=== PATIENT | male | born 1970 ===

== ENCOUNTER 2020-10-02 14:02 | Outpatient (REF) | payer MEDICAID, SELFPAY ==
[2020-10-02 19:31] LABS: Uric Acid 8.1 mg/dL (3.4-7.0)
== END 2020-10-02 14:03 | disposition home or self-care (01) ==
LOC: HO.MANLDS 14:02
PROVIDERS: PCP Internal Medicine; Visit Provider Internal Medicine
DX: M10.9 Gout, unspecified (principal)
CPT/HCPCS: 36415; 84550

== ENCOUNTER 2021-03-18 08:49 | Outpatient (REF) | payer MEDICAID, SELFPAY ==
--- NOTE | ~2021-03-18 | XR_ITS ---
EXAMINATION: XR HIP, LEFT CLINICAL INFORMATION: Pain. COMPARISON: None TECHNIQUE: AP and frog-leg lateral views of the left hip. FINDINGS: There is mild narrowing of the superior left acetabular joint space. There is mild subchondral sclerosis of the left acetabular roof. A small subchondral cyst is seen of the lateral aspect of the left acetabular roof. Small accessory ossification centers are seen adjacent to the lateral left acetabular margin. No fracture or dislocation is seen. The left femoral head appears smooth. There is a left pelvic phlebolith, and a pelvic surgical clip is seen. XR/XR hip LT min 2V IMPRESSION: There is mild osteoarthritic change of the left hip. No fracture or dislocation is seen.
== END 2021-03-18 08:50 | disposition home or self-care (01) ==
LOC: HO.XRAY 08:49
PROVIDERS: PCP Internal Medicine; Visit Provider Internal Medicine
DX: M25.552 Pain in left hip (principal)
CPT/HCPCS: 73502

== ENCOUNTER 2021-04-27 01:17 | Emergency (ER) | payer MEDICAID, SELFPAY ==
[2021-04-27 01:30] VITALS: BP 147/93; PULSE 88; RESP 20; TEMP 36.6; O2SAT 94; BMI 35.9
== END 2021-04-27 04:43 | disposition left against medical advice (07) ==
PROVIDERS: Emergency Provider Emergency Medicine
DX: R10.10 Upper abdominal pain, unspecified (principal)
CPT/HCPCS: 99281; 99282

== ENCOUNTER 2021-05-04 10:54 | Emergency (ER) | payer MEDICAID, SELFPAY ==
--- NOTE | ~2021-05-04 | CT_ITS ---
EXAMINATION: CT ABDOMEN AND PELVIS WITH CONTRAST CLINICAL INFORMATION: Right upper quadrant and flank pain. COMPARISON: Abdominal ultrasound dated 07/03/2016. TECHNIQUE: Multidetector volumetric images were obtained from the superior aspect of the liver through the pubic symphysis following administration 85 mL of Omnipaque 350 intravenous contrast. Sagittal and coronal reformatted images were obtained on the technologist's workstation. Oral contrast: No This CT examination was performed using dose optimization techniques as appropriate, variously including the following: *Automated exposure control *Adjustment of mA and/or kV according to patient size (this includes techniques or standardized protocols for targeted exams where dose is matched to indication/reason for exam; i.e. extremities or head) *Use of iterative reconstruction technique DLP: 955.11 mGy-cm FINDINGS: LUNG BASES: The visualized lung bases are unremarkable. LIVER, GALLBLADDER, AND BILIARY TREE: The liver is normal in size, shape, and attenuation. There are multiple low-attenuation hepatic probable cysts, many too small to fully characterize with CT. No biliary ductal dilatation is present. The gallbladder is surgically absent. PANCREAS: Unremarkable. SPLEEN: Unremarkable. ADRENAL GLANDS: The left kidney is unremarkable. The right kidney contains a 1.7 cm benign, fat-containing adenoma with postcontrast Hounsfield value of 21.7 units (3:27). KIDNEYS AND URETERS: The kidneys are normal in size, shape, and attenuation. At the lower pole of the right kidney (3:43), a 4 mm nonobstructing calculus is seen. At the lower pole of the left kidney (3:39), a 2 mm nonobstructing calculus is seen. No ureteric calculus or hydronephroureter is seen bilaterally. No perinephric stranding. BLADDER: Unremarkable. There is a large prostatic impression upon the bladder base. GASTROINTESTINAL TRACT: A small duodenal diverticulum is noted. There is mild diverticulosis, without acute diverticulitis. No bowel obstruction, free intraperitoneal air or abscess is seen. This no focal bowel wall thickening. The vermiform appendix appears normal. ABDOMINAL WALL: There are small fat-containing umbilical and bilateral inguinal hernias. LYMPH NODES: Normal. VASCULAR: Unremarkable. PELVIC VISCERA: There is prostatomegaly, with a transverse span of 6.7 cm. The seminal vesicles are unremarkable. OSSEOUS STRUCTURES: There is multi-level thoracolumbar mild spondylosis and Schmorl's node formation. No acute or aggressive osseous abnormality is seen. CT/CT abdomen pelvis w con IMPRESSION: 1. There are small nonobstructing bilateral renal calculi. No ureteric calculus or obstructive uropathy is seen bilaterally. 2. There is prostatomegaly. There is a prostatic impression upon the bladder base. 3. The gallbladder is surgically absent. 4. There are multiple low-attenuation hepatic cysts. These are of doubtful clinical significance, and several are too small to fully characterize with CT. If of clinical concern (i.e. history of hepatocellular disease or known malignancy), these can be further evaluated with ultrasound or MRI. 5. No abdominopelvic mass, free fluid or lymphadenopathy is seen. 6. There are small fat-containing umbilical and bilateral inguinal hernias. 7. A 1.7 cm benign, fat-containing right adrenal adenoma is noted. 8. There are multi-level degenerative changes of the thoracolumbar spine.
[2021-05-04 11:42] VITALS: BP 176/91; PULSE 77; RESP 16; TEMP 36.1; O2SAT 97; BMI 35.9
[2021-05-04 12:25] LABS: MANUAL DIFF FLAG NO
[2021-05-04 12:28] LABS: Glucose Urine UA NEG (NEG); Leukocyte Esterase Urine NEG (NEG); Nitrite Urine NEG (NEG); Specific Gravity - Urine 1.025 (1.005-1.025); Urine Blood NEG (NEG); Urine Ketones NEG (NEG); Urine Protein TRACE MG/DL (NEG-TRACE)
[2021-05-04 12:29] LABS: Appearance Urine HAZY; Color Urine YELLOW
[2021-05-04 12:34] LABS: Basophils Absolute Auto 0.1 X10*3/uL (0.0-0.2); Basophils Percent Auto 0.7 % (0-2); Eosinophils Absolute Auto 0.3 X10*3/uL (0.0-0.4); Hematocrit 44.8 % (42-52); Hemoglobin 15.2 g/dl (14.0-18.0); Imm Gran Abs Auto 0.02 X10*3/uL (0.00-0.03); Imm Gran Pct Auto 0.2 % (0.0-0.4); Lymphocytes Absolute Auto 1.4 X10*3/uL (1.2-4.9); Lymphocytes Percent Auto 16.4 % (20-40); Mean Corpuscular HGB Conc 33.9 g/dl (31.0-36.0); Mean Corpuscular Hemoglobin 28.6 pg (27.0-33.0); Mean Corpuscular Volume 84.2 fL (80-98); Mean Platelet Volume 10.3 fL (9.4-12.4); Monocytes Absolute Auto 0.6 X10*3/uL (0.1-1.2); Monocytes Percent Auto 6.8 % (2-11); Neutrophils Absolute Auto 6.1 X10*3/uL (2.0-8.3); Neutrophils Percent Auto 72.9 % (45-73); Platelet Count 271 X10*3/uL (160-400); Red Blood Count 5.32 X10*6/uL (4.60-5.80); Red Cell Distribution Width 14.3 % (11.0-16.0); White Blood Count 8.4 X10*3/uL (4.8-10.8)
[2021-05-04 12:35] LABS: INTERNATIONAL NORM RATIO 1.1 (0.9-1.1)
[2021-05-04 13:02] LABS: Alanine Aminotransferase 38 U/L (0-40); Albumin Level 4.3 g/dL (3.5-5.0); Alkaline Phosphatase 85 U/L (39-117); Anion Gap 11 (12-20); Aspartate Amino Transferase 51 U/L (5-37); Bilirubin Total 0.5 mg/dL (0.0-1.0); Blood Urea Nitrogen 10 mg/dL (9-16); Calcium 9.5 mg/dL (8.4-10.2); Carbon Dioxide 26 mmol/L (22-29); Chloride 108 mmol/L (96-108); Creatinine Clr Calc Pharmacy 116.9; Estimated Glomerular Filt Rate > 60; Glucose Random 103 mg/dL (60-115); Lactate Dehydrogenase 127 U/L (118-273); Lipase 90 U/L (8-78); Potassium 4.2 mmol/L (3.3-5.1); Sodium 141 mmol/L (135-145); Total Protein 7.3 g/dL (6.5-8.0)
[2021-05-04 13:17] LABS: Influenza A PCR NEGATIVE (Negative); Influenza B PCR NEGATIVE (Negative); Resp Syncy Virus RNA Qual PCR NEGATIVE (Negative); SARS COV2 PCR INHOUSE NEGATIVE (Negative)
--- NOTE | 2021-05-04 13:48 | ED_ITS ---
HPI - Abdominal Pain General Chief Complaint: Abdominal Pain <SHARITA Colunga Last Filed: 05/04/21 15:26> Stated Complaint: abd pain <SHARITA Colunga Last Filed: 05/04/21 15:26> Time Seen by Provider: 05/04/21 11:52 <SHARITA Colunga Last Filed: 05/04/21 15:26> Source: patient <SHARITA Colunga Last Filed: 05/04/21 15:26> Mode of arrival: ambulatory <SHARITA Colunga Last Filed: 05/04/21 15:26> Limitations: no limitations <SHARITA Colunga Last Filed: 05/04/21 15:26> History of Present Illness HPI narrative: 50-year-old male with a past medical history of GERD, kidney stones s/p cholecystectomy approximately 10-20 years ago presenting to the ED with complaints of right upper quadrant abdominal pain radiating to his right flank/right lower quadrant/mid back over the past week worse since last night. Reports associated dry heaving/nausea/vomiting, poor appetite and diarrhea. Reports that he recently traveled to [place] then to [place] then back to [place] approximately 2 weeks ago. He denies any sick contacts that he is aware of. He denies any fevers, chills, dizziness, headaches, neck pain/stiffness, cough, sore throat, nasal congestion, rhinorrhea, chest pain, shortness of breath, paresthesias, palpitations, dyspnea on exertion, orthopnea, back pain, dysuria, hematuria, abnormal penile discharge, black or bloody stools or any other symptoms complaints or concerns at this time. <SHARITA Colunga Last Filed: 05/04/21 15:26> MD elicited complaint: abdominal pain and flank pain <SHARITA Colunga Last Filed: 05/04/21 15:2 6> Pertinent past history: kidney stones <SHARITA Colunga Last Filed: 05/04/21 15:26> Onset (ago): week(s) (1 week ) <SHARITA Colunga Last Filed: 05/04/21 15:26> Pain Consistency: intermittent <SHARITA Colunga Last Filed: 05/04/21 15:26> Location: RUQ <SHARITA Colunga Last Filed: 05/04/21 15:26> Severity: moderate <SHARITA Colunga Last Filed: 05/04/21 15:26> Quality: aching <SHARITA Colunga Last Filed: 05/04/21 15:26> Radiation: RLQ and R flank <SHARITA Colunga Last Filed: 05/04/21 15:26> Exacerbating factors: nothing <SHARITA Colunga Last Filed: 05/04/21 15:26> Relieving factors: nothing <SHARITA Colunga Last Filed: 05/04/21 15:26> Context: other (Recent travel) <SHARITA Colunga Last Filed: 05/04/21 15:26> Associated symptoms: nausea, vomiting and diarrhea <SHARITA Colunga Last Filed: 05/04/21 15:26> Related Data Home Medications: Previous Rx's Medication Instructions Recorded naproxen 500 mg tablet (Naprosyn) 500 mg PO BID #20 tab 05/04/21 <SHARITA Colunga Last Filed: 05/04/21 15:26> Allergies/Adverse Reactions: Allergies Allergy/AdvReac Type Severity Reaction Status Date / Time No Known Allergies Allergy Verified 04/27/21 01:29 [No Known Allergies*] <SHARITA Colunga Last Filed: 05/04/21 15:26> Review of Systems Review of Systems Constitutional : No Weight loss, No Fever, No Chills, No Night Sweats, No Fatigue, NoMalaise ENT/Mouth: No ear pain, No sore throat, No Difficulty swallowing Cardiovascular : No Chest Pain, No SOB, No Dyspnea on Exertion, No Orthopnea, NoEdema, No Palpitations Respiratory : No Cough, No Sputum, No Wheezing, No Dyspnea Gastrointestinal : Positive nausea/vomiting/abdominal pain/diarrhea, No blood streaked emesis, No coffee-ground emesis, No gross hematemesis, No blood streak stool, No gross hematochezia, No Melena Genitourinary : No irregular bleeding, No Dysuria, No Urinary Frequency, No Hematuria,No Urinary Incontinence, No Urgency, No Flank Pain Musculoskeletal : No joint pain, No Myalgias, No Joint Swelling Skin : No Skin Lesions, No rash Neuro : No Weakness, No Numbness, No Paresthesias, No Loss of Consciousness, NoDizziness, No Headache Psych : No Social Issues, Heme/Lymph: No Bruising, No Bleeding,No Lymphadenopathy Endocrine : No Polyuria, No Polydipsia, No Temperature Intolerance <SHARITA Colunga - Last Filed: 05/04/21 15:26> Yes all other systems are reviewed and are negative <SHARITA Colunga - Last Filed: 05/04/21 15:26> Physical Exam Vital Signs: Vital Signs: Last Vital Signs Temp 98 F 05/04/21 14:16 Pulse 72 05/04/21 14:16 Resp 18 05/04/21 14:16 BP 144/84 H 05/04/21 14:16 Pulse Ox 98 05/04/21 14:16 Body Mass Index 35.9 vital signs have been reviewed as normal and appeared to be correct. Blood pressure hypertensive 176/91 Heart rate normal. Respiration rate normal. Tem perature normal. Oxygen saturation normal. <SHARITA Colunga - Last Filed: 05/04/21 15:26> Vital Signs: Last Vital Signs Temp 98 F 05/04/21 14:16 Pulse 72 05/04/21 14:16 Resp 18 05/04/21 14:16 BP 144/84 H 05/04/21 14:16 Pulse Ox 98 05/04/21 14:16 Body Mass Index 35.9 <Cale Persaud MD - Last Filed: 05/04/21 16:23> Appearance: Alert. Oriented X3. No acute distress. Head: Normal external exam. Normocephalic. Eyes: PERRLA. EOMI. Conjunctiva and sclera normal. Eyelids normal. ENT: Pharynx normal. Uvula midline. Moist mucous membranes. Neck: Normal inspection. Neck supple. FROM. No adenopathy. No meningeal signs. CVS: Normal heart rate and rhythm. Heart sound normal. No murmurs noted. Pulses normal throughout. Respiratory: No respiratory distress. Painless inspiration. Breath sounds normal. No wheezes/rales/rhonchi noted. Chest nontender. No accessory muscle usage noted or decreased air movement noted. Abdomen: Soft and mild tenderness palpation to right upper quadrant/right flank/right lower quadrant with guarding. Nondistended. No rigidity. Bowel sounds normal in all 4 quadrants. No distention noted. No organomegaly noted. No visible injury noted. No rebound tenderness. Negative Rovsing sign. Negative obturator's sign. Negative psoas sign. Negative German sign. Back: No CVA tenderness. Full range of motion noted. Skin: Skin warm and dry. Normal skin color. Normal skin turgor. No rashes/lesi ons/lacerations noted. Extremities: Extremities exhibit normal range of motion. Extremities nontender. Neuro: Oriented X 3. No motor deficit. No sensory deficit. Reflexes normal. Normal steady gait. <SHARITA Colunga - Last Filed: 05/04/21 15:26> Course Course Course Narrative: 12pm - 50-year-old male with a past medical history of GERD, kidney stones s/p cholecystectomy approximately 10-20 years ago presenting to the ED with complaints of right upper quadrant abdominal pain radiating to his right flank/right lower quadrant/mid back over the past week worse since last night. Reports associated dry heaving/nausea/vomiting, poor appetite and diarrhea. Reports that he recently traveled to [place] then to [place] then back to [place] approximately 2 weeks ago. Plan: Labs, UA, CT scan abdomen pelvis with IV contrast, COVID/RSV/flu swab. I also recommended a stool sample/culture and patient declined. I also offered the patient pain medication and anti medics and he declined at this time. <SHARITA Colunga - Last Filed: 05/04/21 15:26> Reevaluation(s) Reevaluation #1: - labs returned anion gap at 11. AST 51. Lipase 90. Otherwise all other labs are within normal limits. UA within normal limits no evidence of UTI. COVID/RSV/flu negative. - pending CT scan of abdomen and pelvis with IV contrast will re-evaluate. <SHARITA Colunga - Last Filed: 05/04/21 15:26> Time: 14:06 <SHARITA Colunga - Last Filed: 05/04/21 15:26> Reevaluation #2: one week ago patient with intermittent spasms in his right upper quadrant. Bath like his gallbladder attack, gallbladder was removed 10 years ago. one week ago patient came to triage but he was not seen. patient has not been seen by GI for his 49 year colonoscopy. WEll developed, Lungs clear, CV RRR, abd nontender, no CVAT. <Cale Persuad MD - Last Filed: 05/04/21 16:23> MDM - Abdominal Pain Lab Data Result diagrams: : 05/04/21 12:19 05/04/21 12:19 <SHARITA Colunga - Last Filed: 05/04/21 15:26> Labs: Lab Results 05/04/21 05/04/21 05/04/21 Range/Units 12:19 12:19 12:19 WBC 8.4 (4.8-10.8) X10*3/uL RBC 5.32 (4.60-5.80) X10*6/uL Hgb 15.2 (14.0-18.0) g/dl Hct 44.8 (42-52) % MCV 84.2 (80-98) fL MCH 28.6 (27.0-33.0) pg MCHC 33.9 (31.0-36.0) g/dl RDW 14.3 (11.0-16.0) % Plt Count 271 (160-400) X10*3/uL MPV 10.3 (9.4-12.4) fL Immature Gran % (Auto) 0.2 (0.0-0.4) % Neut % (Auto) 72.9 (45-73) % Lymph % (Auto) 16.4 L (20-40) % [place] % (Auto) 6.8 (2-11) % Eos % (Auto) 3.0 (0-4) % Baso % (Auto) 0.7 (0-2) % Lymph # (Auto) 1.4 (1.2-4.9) X10*3/uL [place] # (Auto) 0.6 (0.1-1.2) X10*3/uL Eos # (Auto) 0.3 (0.0-0.4) X10*3/uL Baso # (Auto) 0.1 (0.0-0.2) X10*3/uL Abs Immat Gran (auto) 0.02 (0.00-0.03) X10*3/uL Absolute Neuts (auto) 6.1 (2.0-8.3) X10*3/uL Absolute Nucleated RBC 0.000 (0.0-0.012) X10*3/uL Nucleated RBC % (auto) 0.0 (0.0-0.2) /100WBC Hold Purple Top PT 12.0 (9.9-13.0) SEC INR 1.1 (0.9-1.1) Sodium (135-145) mmol/L Potassium (3.3-5.1) mmol/L Chloride (96-108) mmol/L Carbon Dioxide (22-29) mmol/L Anion Gap (12-20) BUN (9-16) mg/dL Creatinine (0.5-1.4) mg/dL Estim Creat Clear Calc Estimated GFR Random Glucose (60-115) mg/dL Calcium (8.4-10.2) mg/dL Magnesium 2.0 (1.6-2.6) mg/dL Total Bilirubin (0.0-1.0) mg/dL AST (5-37) U/L ALT (0-40) U/L Alkaline Phosphatase (39-117) U/L Lactate Dehydrogenase (118-273) U/L Total Protein (6.5-8.0) g/dL Albumin (3.5-5.0) g/dL Lipase (8-78) U/L Urine Color Urine Appearance Urine pH (5.0-8.0) Ur Specific [place] (1.005-1.025) Urine Protein (NEG-TRACE) MG/DL Urine Glucose (UA) (NEG) MG/DL Urine Ketones (NEG) MG/DL Urine Blood (NEG) Urine Nitrite (NEG) Ur Leukocyte Esterase (NEG) Coronavirus (PCR) (Negative) Influenza Type A (PCR) (Negative) Influenza Type B (PCR) (Negative) RSV RNA Qual (PCR) (Negative) 05/04/21 05/04/21 05/04/21 Range/Units 12:19 12:19 12:19 WBC (4.8-10.8) X10*3/uL RBC (4.60-5.80) X10*6/uL Hgb (14.0-18.0) g/dl Hct (42-52) % MCV (80-98) fL MCH (27.0-33.0) pg MCHC (31.0-36.0) g/dl RDW (11.0-16.0) % Plt Count (160-400) X10*3/uL MPV (9.4-12.4) fL Immature Gran % (Auto) (0.0-0.4) % Neut % (Auto) (45-73) % Lymph % (Auto) (20-40) % [place] % (Auto) (2-11) % Eos % (Auto) (0-4) % Baso % (Auto) (0-2) % Lymph # (Auto) (1.2-4.9) X10*3/uL [place] # (Auto) (0.1-1.2) X10*3/uL Eos # (Auto) (0.0-0.4) X10*3/uL Baso # (Auto) (0.0-0.2) X10*3/uL Abs Immat Gran (auto) (0.00-0.03) X10*3/uL Absolute Neuts (auto) (2.0-8.3) X10*3/uL Absolute Nucleated RBC (0.0-0.012) X10*3/uL Nucleated RBC % (auto) (0.0-0.2) /100WBC Hold Purple Top SEE NOTE PT (9.9-13.0) SEC INR (0.9-1.1) Sodium 141 (135-145) mmol/L Potassium 4.2 (3.3-5.1) mmol/L Chloride 108 (96-108) mmol/L Carbon Dioxide 26 (22-29) mmol/L Anion Gap 11 L (12-20) BUN 10 (9-16) mg/dL Creatinine 1.00 (0.5-1.4) mg/dL Estim Creat Clear Calc 116.9 Estimated GFR > 60 Random Glucose 103 (60-115) mg/dL Calcium 9.5 (8.4-10.2) mg/dL Magnesium (1.6-2.6) mg/dL Total Bilirubin 0.5 (0.0-1.0) mg/dL AST 51 H (5-37) U/L ALT 38 (0-40) U/L Alkaline Phosphatase 85 (39-117) U/L Lactate Dehydrogenase 127 (118-273) U/L Total Protein 7.3 (6.5-8.0) g/dL Albumin 4.3 (3.5-5.0) g/dL Lipase 90 H (8-78) U/L Urine Color Urine Appearance Urine pH (5.0-8.0) Ur Specific [place] (1.005-1.025) Urine Protein (NEG-TRACE) MG/DL Urine Glucose (UA) (NEG) MG/DL Urine Ketones (NEG) MG/DL Urine Blood (NEG) Urine Nitrite (NEG) Ur Leukocyte Esterase (NEG) Coronavirus (PCR) NEGATIVE (Negative) Influenza Type A (PCR) NEGATIVE (Negative) Influenza Type B (PCR) NEGATIVE (Negative) RSV RNA Qual (PCR) NEGATIVE (Negative) 05/04/21 Range/Units 12:19 WBC (4.8-10.8) X10*3/uL RBC (4.60-5.80) X10*6/uL Hgb (14.0-18.0) g/dl Hct (42-52) % MCV (80-98) fL MCH (27.0-33.0) pg MCHC (31.0-36.0) g/dl RDW (11.0-16.0) % Plt Count (160-400) X10*3/uL MPV (9.4-12.4) fL Immature Gran % (Auto) (0.0-0.4) % Neut % (Auto) (45-73) % Lymph % (Auto) (20-40) % [place] % (Auto) (2-11) % Eos % (Auto) (0-4) % Baso % (Auto) (0-2) % Lymph # (Auto) (1.2-4.9) X10*3/uL [place] # (Auto) (0.1-1.2) X10*3/uL Eos # (Auto) (0.0-0.4) X10*3/uL Baso # (Auto) (0.0-0.2) X10*3/uL Abs Immat Gran (auto) (0.00-0.03) X10*3/uL Absolute Neuts (auto) (2.0-8.3) X10*3/uL Absolute Nucleated RBC (0.0-0.012) X10*3/uL Nucleated RBC % (auto) (0.0-0.2) /100WBC Hold Purple Top PT (9.9-13.0) SEC INR (0.9-1.1) Sodium (135-145) mmol/L Potassium (3.3-5.1) mmol/L Chloride (96-108) mmol/L Carbon Dioxide (22-29) mmol/L Anion Gap (12-20) BUN (9-16) mg/dL Creatinine (0.5-1.4) mg/dL Estim Creat Clear Calc Estimated GFR Random Glucose (60-115) mg/dL Calcium (8.4-10.2) mg/dL Magnesium (1.6-2.6) mg/dL Total Bilirubin (0.0-1.0) mg/dL AST (5-37) U/L ALT (0-40) U/L Alkaline Phosphatase (39-117) U/L Lactate Dehydrogenase (118-273) U/L Total Protein (6.5-8.0) g/dL Albumin (3.5-5.0) g/dL Lipase (8-78) U/L Urine Color YELLOW Urine Appearance HAZY Urine pH 6.0 (5.0-8.0) Ur Specific [place] 1.025 (1.005-1.025) Urine Protein TRACE (NEG-TRACE) MG/DL Urine Glucose (UA) NEG (NEG) MG/DL Urine Ketones NEG (NEG) MG/DL Urine Blood NEG (NEG) Urine Nitrite NEG (NEG) Ur Leukocyte Esterase NEG (NEG) Coronavirus (PCR) (Negative) Influenza Type A (PCR) (Negative) Influenza Type B (PCR) (Negative) RSV RNA Qual (PCR) (Negative) <SHARITA Colunga - Last Filed: 05/04/21 15:26> Lab Results 05/04/21 05/04/21 05/04/21 Range/Units 12:19 12:19 12:19 WBC 8.4 (4.8-10.8) X10*3/uL RBC 5.32 (4.60-5.80) X10*6/uL Hgb 15.2 (14.0-18.0) g/dl Hct 44.8 (42-52) % MCV 84.2 (80-98) fL MCH 28.6 (27.0-33.0) pg MCHC 33.9 (31.0-36.0) g/dl RDW 14.3 (11.0-16.0) % Plt Count 271 (160-400) X10*3/uL MPV 10.3 (9.4-12.4) fL Immature Gran % (Auto) 0.2 (0.0-0.4) % Neut % (Auto) 72.9 (45-73) % Lymph % (Auto) 16.4 L (20-40) % [place] % (Auto) 6.8 (2-11) % Eos % (Auto) 3.0 (0-4) % Baso % (Auto) 0.7 (0-2) % Lymph # (Auto) 1.4 (1.2-4.9) X10*3/uL [place] # (Auto) 0.6 (0.1-1.2) X10*3/uL Eos # (Auto) 0.3 (0.0-0.4) X10*3/uL Baso # (Auto) 0.1 (0.0-0.2) X10*3/uL Abs Immat Gran (auto) 0.02 (0.00-0.03) X10*3/uL Absolute Neuts (auto) 6.1 (2.0-8.3) X10*3/uL Absolute Nucleated RBC 0.000 (0.0-0.012) X10*3/uL Nucleated RBC % (auto) 0.0 (0.0-0.2) /100WBC Hold Purple Top PT 12.0 (9.9-13.0) SEC INR 1.1 (0.9-1.1) Sodium (135-145) mmol/L Potassium (3.3-5.1) mmol/L Chloride (96-108) mmol/L Carbon Dioxide (22-29) mmol/L Anion Gap (12-20) BUN (9-16) mg/dL Creatinine (0.5-1.4) mg/dL Estim Creat Clear Calc Estimated GFR Random Glucose (60-115) mg/dL Calcium (8.4-10.2) mg/dL Magnesium 2.0 (1.6-2.6) mg/dL Total Bilirubin (0.0-1.0) mg/dL AST (5-37) U/L ALT (0-40) U/L Alkaline Phosphatase (39-117) U/L Lactate Dehydrogenase (118-273) U/L Total Protein (6.5-8.0) g/dL Albumin (3.5-5.0) g/dL Lipase (8-78) U/L Urine Color Urine Appearance Urine pH (5.0-8.0) Ur Specific [place] (1.005-1.025) Urine Protein (NEG-TRACE) MG/DL Urine Glucose (UA) (NEG) MG/DL Urine Ketones (NEG) MG/DL Urine Blood (NEG) Urine Nitrite (NEG) Ur Leukocyte Esterase (NEG) Coronavirus (PCR) (Negative) Influenza Type A (PCR) (Negative) Influenza Type B (PCR) (Negative) RSV RNA Qual (PCR) (Negative) 05/04/21 05/04/21 05/04/21 Range/Units 12:19 12:19 12:19 WBC (4.8-10.8) X10*3/uL RBC (4.60-5.80) X10*6/uL Hgb (14.0-18.0) g/dl Hct (42-52) % MCV (80-98) fL MCH (27.0-33.0) pg MCHC (31.0-36.0) g/dl RDW (11.0-16.0) % Plt Count (160-400) X10*3/uL MPV (9.4-12.4) fL Immature Gran % (Auto) (0.0-0.4) % Neut % (Auto) (45-73) % Lymph % (Auto) (20-40) % [place] % (Auto) (2-11) % Eos % (Auto) (0-4) % Baso % (Auto) (0-2) % Lymph # (Auto) (1.2-4.9) X10*3/uL [place] # (Auto) (0.1-1.2) X10*3/uL Eos # (Auto) (0.0-0.4) X10*3/uL Baso # (Auto) (0.0-0.2) X10*3/uL Abs Immat Gran (auto) (0.00-0.03) X10*3/uL Absolute Neuts (auto) (2.0-8.3) X10*3/uL Absolute Nucleated RBC (0.0-0.012) X10*3/uL Nucleated RBC % (auto) (0.0-0.2) /100WBC Hold Purple Top SEE NOTE PT (9.9-13.0) SEC INR (0.9-1.1) Sodium 141 (135-145) mmol/L Potassium 4.2 (3.3-5.1) mmol/L Chloride 108 (96-108) mmol/L Carbon Dioxide 26 (22-29) mmol/L Anion Gap 11 L (12-20) BUN 10 (9-16) mg/dL Creatinine 1.00 (0.5-1.4) mg/dL Estim Creat Clear Calc 116.9 Estimated GFR > 60 Random Glucose 103 (60-115) mg/dL Calcium 9.5 (8.4-10.2) mg/dL Magnesium (1.6-2.6) mg/dL Total Bilirubin 0.5 (0.0-1.0) mg/dL AST 51 H (5-37) U/L ALT 38 (0-40) U/L Alkaline Phosphatase 85 (39-117) U/L Lactate Dehydrogenase 127 (118-273) U/L Total Protein 7.3 (6.5-8.0) g/dL Albumin 4.3 (3.5-5.0) g/dL Lipase 90 H (8-78) U/L Urine Color Urine Appearance Urine pH (5.0-8.0) Ur Specific [place] (1.005-1.025) Urine Protein (NEG-TRACE) MG/DL Urine Glucose (UA) (NEG) MG/DL Urine Ketones (NEG) MG/DL Urine Blood (NEG) Urine Nitrite (NEG) Ur Leukocyte Esterase (NEG) Coronavirus (PCR) NEGATIVE (Negative) Influenza Type A (PCR) NEGATIVE (Negative) Influenza Type B (PCR) NEGATIVE (Negative) RSV RNA Qual (PCR) NEGATIVE (Negative) 05/04/21 Range/Units 12:19 WBC (4.8-10.8) X10*3/uL RBC (4.60-5.80) X10*6/uL Hgb (14.0-18.0) g/dl Hct (42-52) % MCV (80-98) fL MCH (27.0-33.0) pg MCHC (31.0-36.0) g/dl RDW (11.0-16.0) % Plt Count (160-400) X10*3/uL MPV (9.4-12.4) fL Immature Gran % (Auto) (0.0-0.4) % Neut % (Auto) (45-73) % Lymph % (Auto) (20-40) % [place] % (Auto) (2-11) % Eos % (Auto) (0-4) % Baso % (Auto) (0-2) % Lymph # (Auto) (1.2-4.9) X10*3/uL [place] # (Auto) (0.1-1.2) X10*3/uL Eos # (Auto) (0.0-0.4) X10*3/uL Baso # (Auto) (0.0-0.2) X10*3/uL Abs Immat Gran (auto) (0.00-0.03) X10*3/uL Absolute Neuts (auto) (2.0-8.3) X10*3/uL Absolute Nucleated RBC (0.0-0.012) X10*3/uL Nucleated RBC % (auto) (0.0-0.2) /100WBC Hold Purple Top PT (9.9-13.0) SEC INR (0.9-1.1) Sodium (135-145) mmol/L Potassium (3.3-5.1) mmol/L Chloride (96-108) mmol/L Carbon Dioxide (22-29) mmol/L Anion Gap (12-20) BUN (9-16) mg/dL Creatinine (0.5-1.4) mg/dL Estim Creat Clear Calc Estimated GFR Random Glucose (60-115) mg/dL Calcium (8.4-10.2) mg/dL Magnesium (1.6-2.6) mg/dL Total Bilirubin (0.0-1.0) mg/dL AST (5-37) U/L ALT (0-40) U/L Alkaline Phosphatase (39-117) U/L Lactate Dehydrogenase (118-273) U/L Total Protein (6.5-8.0) g/dL Albumin (3.5-5.0) g/dL Lipase (8-78) U/L Urine Color YELLOW Urine Appearance HAZY Urine pH 6.0 (5.0-8.0) Ur Specific [place] 1.025 (1.005-1.025) Urine Protein TRACE (NEG-TRACE) MG/DL Urine Glucose (UA) NEG (NEG) MG/DL Urine Ketones NEG (NEG) MG/DL Urine Blood NEG (NEG) Urine Nitrite NEG (NEG) Ur Leukocyte Esterase NEG (NEG) Coronavirus (PCR) (Negative) Influenza Type A (PCR) (Negative) Influenza Type B (PCR) (Negative) RSV RNA Qual (PCR) (Negative) <Cale Persaud MD - Last Filed: 05/04/21 16:23> Discharge Plan Discharge Clinical Impression: Abdominal pain Qualifiers: Abdominal location: right upper quadrant Qualified Code(s): R10.11 - Right upper quadrant pain <SHARITA Colunga - Last Filed: 05/04/21 15:26> Patient Disposition: Home, Self-Care <SHARITA Colunga - Last Filed: 05/04/21 15:26> Instructions: Acute Abdominal Pain (ED) <SHARITA Colunga - Last Filed: 05/04/21 15:26> Prescriptions: New naproxen [Naprosyn] 500 mg tablet 500 mg PO BID Qty: 20 RF: 0 <SHARITA Colunga - Last Filed: 05/04/21 15:26> Referrals: Bandar Moore MD [Primary Care Provider] - 5 days Xi Carvalho MD [Physician] - 5 days (must follow up for colonoscopy and abdominal pain) <SHARITA Colunga - Last Filed: 05/04/21 15:26> [facility] Past Medical History Attestation statement: The following information was validated with the patient. <SHARITA Colunga - Last Filed: 05/04/21 15:26> Medical History: Medical History Kidney stones Liver nodule Lung nodule Ptosis Thyroid nodule <SHARITA Colunga - Last Filed: 05/04/21 15:26> Surgical History: Surgical History History of cholecystectomy <SHARITA Colunga - Last Filed: 05/04/21 15:26> Social History Social History: Social History Advance Directives: Yes Advance Directives Information Provided: No Advance Directives on File: No <SHARITA Colunga - Last Filed: 05/04/21 15:26>
[2021-05-04 14:16] VITALS: BP 144/84; PULSE 72; RESP 18; TEMP 36.6; O2SAT 98
[2021-05-04] MEDS: iohexoL 350 MG/ML 100 ML INFUS..BTL 85 ML IV (14:33)
== END 2021-05-04 16:34 | disposition home or self-care (01) ==
PROVIDERS: Physician Assistant Medical; Emergency Provider Internal Medicine; PCP Internal Medicine
DX: R10.11 Right upper quadrant pain (principal); Z20.822 Contact with and (suspected) exposure to COVID-19; Z90.49 Acquired absence of other specified parts of digestive tract; Z87.442 Personal history of urinary calculi
CPT/HCPCS: 0241U; 36415; 74177; 80053; 81003; 83615; 83690; 83735; 85025; 85610; 99284; Q9967

== ENCOUNTER 2024-05-08 10:05 | Outpatient (REF) | payer MEDICAID, SELFPAY ==
[2024-05-08 13:19] LABS: MANUAL DIFF FLAG NO
[2024-05-08 13:32] LABS: Basophils Absolute Auto 0.1 X10*3/uL (0.0-0.2); Basophils Percent Auto 1.2 % (0-2); Eosinophils Absolute Auto 0.4 X10*3/uL (0.0-0.4); Eosinophils Percent Auto 6.3 % (0-4); Hematocrit 46.4 % (42.0-52.0); Hemoglobin 15.5 g/dl (14.0-18.0); Imm Gran Abs Auto 0.02 X10*3/uL (0.00-0.03); Imm Gran Pct Auto 0.3 % (0.0-0.4); Lymphocytes Percent Auto 28.4 % (20-40); Mean Corpuscular HGB Conc 33.4 g/dl (31.0-36.0); Mean Corpuscular Hemoglobin 28.4 pg (27.0-33.0); Mean Corpuscular Volume 85.1 fL (80.0-98.0); Mean Platelet Volume 11.9 fL (9.4-12.4); Monocytes Absolute Auto 0.5 X10*3/uL (0.1-1.2); Monocytes Percent Auto 7.1 % (2-11); Neutrophils Absolute Auto 3.9 x10*3/uL (2.0-8.3); Neutrophils Percent Auto 56.7 % (45-73); Platelet Count 318 X10*3/uL (160-400); Red Blood Count 5.45 X10*6/uL (4.60-5.80); Red Cell Distribution Width 14.3 % (11.0-16.0); White Blood Count 6.9 X10*3/uL (4.8-10.8)
[2024-05-08 13:46] LABS: Alanine Aminotransferase 20 U/L (0-40); Albumin Level 4.2 g/dL (3.5-5.0); Alkaline Phosphatase 69 U/L (39-117); Anion Gap 13 (12-20); Aspartate Amino Transferase 17 U/L (5-37); Bilirubin Total 0.5 mg/dL (0.0-1.0); Blood Urea Nitrogen 12 mg/dL (9-16); Calcium 10.1 mg/dL (8.4-10.2); Carbon Dioxide 28 mmol/L (22-29); Chloride 106 mmol/L (96-108); Cholesterol 241 mg/dL (<200); Estimated Glomerular Filt Rate > 60; Glucose Random 100 mg/dL (60-115); HDL Cholesterol 46 mg/dL (>40); LDL Cholesterol Calculated 152 mg/dL (<100); Potassium 4.7 mmol/L (3.3-5.1); Sodium 142 mmol/L (135-145); Total Protein 7.6 g/dL (6.5-8.0); Triglycerides 219 mg/dL (<150)
[2024-05-08 14:10] LABS: Prostate Specific Antigen 3.99 ng/mL (<0.05-4.0)
== END 2024-05-08 10:06 | disposition home or self-care (01) ==
LOC: HO.MANLDS 10:05
PROVIDERS: Visit Provider Internal Medicine
DX: Z00.01 Encounter for general adult medical examination with abnormal findings (principal); Z12.5 Encounter for screening for malignant neoplasm of prostate
CPT/HCPCS: 36415; 80053; 80061; 84153; 85025

== ENCOUNTER 2024-07-10 08:09 | Outpatient (REF) | payer MEDICAID, SELFPAY ==
[2024-07-10 13:49] LABS: Cholesterol 204 mg/dL (<200); HDL Cholesterol 43 mg/dL (>40); LDL Cholesterol Calculated 130 mg/dL (<100); Triglycerides 158 mg/dL (<150)
[2024-07-11 12:48] LABS: Free Prostate Spec Ag 1.1 ng/mL; Percent Free Prostate Spec Ag 27 % (calc) (>25); Prostate Specific Ag Total 4.1 ng/mL (< OR = 4.0)
== END 2024-07-10 08:10 | disposition home or self-care (01) ==
LOC: HO.MANLDS 08:09
PROVIDERS: Visit Provider Internal Medicine
DX: Z13.89 Encounter for screening for other disorder (principal)
CPT/HCPCS: 36415; 80061; 84154

== ENCOUNTER 2024-07-20 14:44 | Inpatient (IN) | payer OTHER, SELFPAY ==
--- NOTE | ~2024-07-20 | CT_ITS ---
EXAMINATION: CT ABDOMEN AND PELVIS WITHOUT CONTRAST CLINICAL INFORMATION: Right flank pain COMPARISON: CT abdomen/pelvis dated 05/04/2021 and abdominal ultrasound dated 07/03/2016 TECHNIQUE: Multidetector volumetric imaging was performed from the superior aspect of the liver through the pubic symphysis. Sagittal and coronal reformatted images were obtained on the technologist's workstation. This CT examination was performed using dose optimization techniques as appropriate, variously including the following: *Automated exposure control *Adjustment of mA and/or kV according to patient size (this includes techniques or standardized protocols for targeted exams where dose is matched to indication/reason for exam; i.e. extremities or head) *Use of iterative reconstruction technique DLP: 735 mGy-cm FINDINGS: LUNG BASES: The visualized lung bases are unremarkable. LIVER, GALLBLADDER, AND BILIARY TREE: Redemonstration of multiple low-attenuation hepatic probable cysts, there are 2 small to fully characterize with CT but appear unchanged when compared to prior CT. No biliary ductal dilatation is present. Status post cholecystectomy with surgical clips located in the gallbladder fossa. PANCREAS: Unremarkable. SPLEEN: Mild splenomegaly measures 14.6 cm in craniocaudal dimension, appears to measure 13.5 cm. ADRENAL GLANDS: Stable left adrenal adenoma measuring 1.8 x 1.8 cm. The right adrenal gland is unremarkable. KIDNEYS AND URETERS: 7 mm calculus in the distal right ureter resulting in mild hydroureteronephrosis and mild periureteral stranding. Nonobstructing renal calculi in the left kidney, largest of which is a 3 mm stone in the lower pole of the left kidney. BLADDER: Decompressed, limiting evaluation. GASTROINTESTINAL TRACT: Duodenal diverticulum protruding into the pancreatic head. Mild sigmoid colonic diverticulosis without secondary signs of acute diverticulitis. The small and large bowel are unremarkable. The appendix is unremarkable. ABDOMINAL WALL: No significant hernia is appreciated. LYMPH NODES: Normal. VASCULAR: Unremarkable. PELVIC VISCERA: Markedly enlarged prostate measures 7.3 cm in transverse. OSSEOUS STRUCTURES: Unremarkable. CT/CT abdomen pelvis wo IV con IMPRESSION: 1. Obstructing 7 mm calculus in the distal right ureter resulting in mild hydroureteronephrosis and mild periureteral stranding. 2. A few nonobstructing renal calculi in the left kidney, the largest of which is a 3 mm stone in the lower pole of the left kidney. 3. Stable left adrenal adenoma. 4. Mild splenomegaly. 5. Markedly enlarged prostate measures 7.3 cm in transverse. Fleischner guidelines were followed. Electronically signed by: Nadira Porter MD 07/20/2024 04:27 PM EDT RP
[2024-07-20 15:09] VITALS: BP 138/86; PULSE 68; RESP 16; TEMP 36.5; O2SAT 98; BMI 34.1
[2024-07-20] MEDS: Ondansetron ODT 4 MG TAB.RAPDIS TRANSLINGU (15:18)
[2024-07-20 15:29] LABS: MANUAL DIFF FLAG NO
[2024-07-20 15:31] LABS: Basophils Absolute Auto 0.1 X10*3/uL (0.0-0.2); Eosinophils Absolute Auto 0.2 X10*3/uL (0.0-0.4); Eosinophils Percent Auto 2.2 % (0-4); Imm Gran Abs Auto 0.03 X10*3/uL (0.00-0.03); Imm Gran Pct Auto 0.3 % (0.0-0.4); Lymphocytes Absolute Auto 1.5 X10*3/uL (1.2-4.9); Lymphocytes Percent Auto 16.7 % (20-40); Mean Corpuscular HGB Conc 34.9 g/dl (31.0-36.0); Mean Corpuscular Hemoglobin 28.7 pg (27.0-33.0); Mean Corpuscular Volume 82.4 fL (80.0-98.0); Mean Platelet Volume 10.3 fL (9.4-12.4); Monocytes Absolute Auto 0.7 X10*3/uL (0.1-1.2); Monocytes Percent Auto 7.5 % (2-11); Neutrophils Absolute Auto 6.7 x10*3/uL (2.0-8.3); Neutrophils Percent Auto 72.3 % (45-73); Platelet Count 337 X10*3/uL (160-400); Red Blood Count 5.22 X10*6/uL (4.60-5.80); Red Cell Distribution Width 14.2 % (11.0-16.0); White Blood Count 9.2 X10*3/uL (4.8-10.8)
--- NOTE | 2024-07-20 15:39 | ED.MALEGU ---
HPI - Male Genitourinary General Chief complaint: Urogenital-Male Stated complaint: kidney stones Time Seen by Provider: 07/20/24 16:15 Source: patient Limitations: no limitations History of Present Illness ED Provider: Anne Ivory PA-C HPI Narrative: 53-year-old male with a history of kidney stones, GERD and BPH presents with right flank pain x4 hours. Pain radiating to groin and testicle, unable to describe the nature of the discomfort, but it fluctuates in intensity. Nausea vomiting at times, denies fever, dysuria or gross hematuria. Denies testicular swelling or focal pain, redness of the testicles Related Data Previous Rx's ?Medication ?Instructions ?Recorded naproxen 500 mg tablet (Naprosyn) 500 mg PO BID #20 tabs 05/04/21 Allergies Allergy/AdvReac Type Severity Reaction Status Date / Time No Known Allergies Allergy Verified 07/20/24 15:14 [No Known Allergies*] Review of Systems Review of Systems: Yes all other systems are reviewed and are negative Constitutional: Constitutional: Denies fatigue and Denies fever(s) Cardiovascular: Cardiovascular: Denies chest pain and Denies dyspnea Respiratory: Respiratory: Denies cough and Denies dyspnea Gastrointestinal: Gastrointestinal: Reports abdominal pain, Reports nausea and Reports vomiting Genitourinary: Genitourinary: Denies dysuria, Reports flank pain, Denies penile discharge, Denies scrotal swelling and Denies testicular pain Endocrine: Endocrine: Denies fatigue PMFSH Past Medical History Attestation statement: The following information was validated with the patient. Medical History Kidney stones Liver nodule Lung nodule Ptosis Thyroid nodule Surgical History History of cholecystectomy Social History Social History Smoked in Last 30 Days: No Use of substances other than those prescribed or required for medical reasons: Yes Substance Use Type: Marijuana Substance Use Frequency: Weekly Advance Directives: No Advance Directives Information Provided: No Physical Exam Vital Signs: Vital Signs: Last Vital Signs Temp 97.7 F 07/20/24 15:09 Pulse 98 07/20/24 18:33 Resp 18 07/20/24 18:33 BP 148/78 H 07/20/24 18:33 Pulse Ox 97 07/20/24 18:33 O2 Del Method Room Air 07/20/24 18:33 BMI result Body Mass Index 34.1 Const: Other: ALERT, OVERALL WELL IN APPEARANCE, BUT DOES APPEAR UNCOMFORTABLE// Orientation/consciousness: patient oriented x3 Resp: Other: Nonlabored respiration Cardio: Other: Normal peripheral perfusion GI: Other: Abdomen is soft, nondistended nontender Back/Spine/Pelvis: Other: No CVA tenderness Skin: Other: Warm dry no rash Neuro: General: patient oriented x3, no focal motor deficits and CN's II-XI intact bilaterally Psych: Other: Calm cooperative Course Course Course Narrative: This is an RME: Additional HPI, ROS, PE not included below will be deferred to primary provider. RME assessment and note performed by: Antionette Middleton PA-C This is a 53-year-old male who presents emergency department with complaints of right sided flank pain that radiates into his right testicle. States that he developed testicular pain several days ago that has since radiated into his right pelvic region. He reports decreased urine output. History of kidney stones in symptoms feel similar. Endorsing nausea. Plan: Labs, UA, Zofran Consultations Consultation #1: paged Dr. Rajan from urology He returned my page at 6:15 a.m., he recommends admission to Medicine, the urology service will consult, we should be giving a dose of Flomax, 0.4 mg and 20 mg of prednisone, additional IV fluid as well. He states the patient can eat overnight, we will order a day Time: 18:09 Medications Administered Discontinued Medications Generic Name Dose Route Start Last Admin Trade Name Freq PRN Reason Stop Dose Admin Sodium Chloride 1,000 mls @ 999 mls/hr 07/20/24 17:00 07/20/24 18:40 Ns IV 07/20/24 18:00 Infused .Q1H1M HARMEET Infusion Ketorolac Tromethamine 15 mg 07/20/24 16:54 07/20/24 17:04 Ketorolac Tromethamine 15 Mg/Ml Vial IVPUSH 07/20/24 16:55 15 mg ONCE ONE Administration Morphine Sulfate 4 mg 07/20/24 16:54 07/20/24 17:04 Morphine Sulfate 4 Mg/Ml Cartridge IVPUSH 07/20/24 16:55 4 mg ONCE ONE Administration Protocol Ondansetron HCl 4 mg 07/20/24 15:16 07/20/24 15:18 Ondansetron Odt 4 Mg Tab.Rapdis TRANSLINGU 07/20/24 15:17 4 mg ONCE ONE Administration Ondansetron HCl 4 mg 07/20/24 16:54 07/20/24 17:04 Ondansetron Hcl 4 Mg/2 Ml Vial IVPUSH 07/20/24 16:55 4 mg ONCE ONE Administration Prednisone 20 mg 07/20/24 18:17 07/20/24 18:45 Prednisone 20 Mg Tablet PO 07/20/24 18:18 20 mg ONCE ONE Administration Tamsulosin HCl 0.4 mg 07/20/24 18:17 07/20/24 18:45 Tamsulosin Hcl 0.4 Mg Capsule PO 07/20/24 18:18 0.4 mg ONCE ONE Administration Medical Decision Making Medical Decision Making MDM Narrative: 53-year-old male with a history of kidney stones, GERD and BPH presents with right flank pain x4 hours. Pain radiating to groin and testicle, unable to describe the nature of the discomfort, but it fluctuates in intensity. Nausea vomiting at times, denies fever, dysuria or gross hematuria. Denies testicular swelling or focal pain, redness of the testicles Problem: Kidney stones History: Per patient I have considered the following differential diagnoses: Renal colic, pyelonephritis, UTI, torsion, Plan: Given distribution of discomfort in nature of symptoms, the patient is likely passing a stone. Screening labs including urinalysis and CT scan were ordered from triage. We will be giving IV fluid Toradol and morphine Zofran. Thought about pyelo and UTI, however there was no fever, no dysuria, he has no CVA tenderness. The pain is radiating to the testicles, the testicles are not swollen or painful themselves, I did consider torsion, currently he does not require an ultrasound of the scrotal contents at this time. I have independently reviewed the following tests: Labs: No leukocytosis, not anemic, no electrolyte abnormality, slight bump in creatinine, this is not an COLLEEN, urine not infected, passing a large amount of hematuria CT abdomen and pelvis: CT/CT abdomen pelvis wo IV con IMPRESSION: 1. Obstructing 7 mm calculus in the distal right ureter resulting in mild hydroureteronephrosis and mild periureteral stranding. 2. A few nonobstructing renal calculi in the left kidney, the largest of which is a 3 mm stone in the lower pole of the left kidney. 3. Stable left adrenal adenoma. 4. Mild splenomegaly. 5. Markedly enlarged prostate measures 7.3 cm in transverse. Fleischner guidelines were followed. Electronically signed by: Nadira Porter MD 07/20/2024 04:27 PM EDT RP Patient Urology for consult Lab Data 07/20/24 15:26 07/20/24 15:26 Labs: Lab Results 07/20/24 07/20/24 Range/Units 15:26 17:10 WBC 9.2 (4.8-10.8) X10*3/uL RBC 5.22 (4.60-5.80) X10*6/uL Hgb 15.0 (14.0-18.0) g/dl Hct 43.0 (42.0-52.0) % MCV 82.4 (80.0-98.0) fL MCH 28.7 (27.0-33.0) pg MCHC 34.9 (31.0-36.0) g/dl RDW 14.2 (11.0-16.0) % Plt Count 337 (160-400) X10*3/uL MPV 10.3 (9.4-12.4) fL Immature Gran % (Auto) 0.3 (0.0-0.4) % Neut % (Auto) 72.3 (45-73) % Lymph % (Auto) 16.7 L (20-40) % [place] % (Auto) 7.5 (2-11) % Eos % (Auto) 2.2 (0-4) % Baso % (Auto) 1.0 (0-2) % Lymph # (Auto) 1.5 (1.2-4.9) X10*3/uL [place] # (Auto) 0.7 (0.1-1.2) X10*3/uL Eos # (Auto) 0.2 (0.0-0.4) X10*3/uL Baso # (Auto) 0.1 (0.0-0.2) X10*3/uL Abs Immat Gran (auto) 0.03 (0.00-0.03) X10*3/uL Absolute Neuts (auto) 6.7 (2.0-8.3) x10*3/uL Absolute Nucleated RBC 0.000 (0.0-0.012) X10*3/uL Nucleated RBC % (auto) 0.0 (0.0-0.2) /100WBC Sodium 139 (135-145) mmol/L Potassium 4.5 (3.3-5.1) mmol/L Chloride 108 (96-108) mmol/L Carbon Dioxide 23 (22-29) mmol/L Anion Gap 13 (12-20) BUN 12 (9-16) mg/dL Creatinine 1.24 (0.5-1.4) mg/dL Estim Creat Clear Calc 88.7 Estimated GFR > 60 Random Glucose 100 (60-115) mg/dL Calcium 9.7 (8.4-10.2) mg/dL Magnesium 1.9 (1.6-2.6) mg/dL Total Bilirubin 0.6 (0.0-1.0) mg/dL Direct Bilirubin 0.2 (0.0-0.5) mg/dL AST 20 (5-37) U/L ALT 18 (0-40) U/L Alkaline Phosphatase 74 (39-117) U/L Total Protein 7.5 (6.5-8.0) g/dL Albumin 4.0 (3.5-5.0) g/dL Urine Color Yellow Urine Appearance Clear Urine pH 5.5 (5.0-9.0) Ur Specific [place] >= 1.030 H (1.005-1.025) Urine Protein 30 (1+) H (Neg-Trace) mg/dL Urine Glucose (UA) Negative (Negative) mg/dL Urine Ketones 80 (Negative) mg/dL Urine Blood Large (3+) H (Negative) Urine Nitrite Negative (Negative) Ur Leukocyte Esterase Trace H (Negative) Urine RBC >20 H (0-2) /HPF Urine WBC 11-20 H (0-5) /HPF Ur Squamous Epith Cells 0-2 (0-2) /HPF Urine Bacteria None Seen (None Seen) Hyaline Casts 3-5 (0-2) /LPF Discharge Plan Discharge Clinical Impression: Calculus of distal right ureter, Hydronephrosis Patient Disposition: Admitted As Inpatient Print Language: [place] Islander
[2024-07-20 15:49] LABS: Alanine Aminotransferase 18 U/L (0-40); Alkaline Phosphatase 74 U/L (39-117); Anion Gap 13 (12-20); Aspartate Amino Transferase 20 U/L (5-37); Bilirubin Direct 0.2 mg/dL (0.0-0.5); Bilirubin Total 0.6 mg/dL (0.0-1.0); Blood Urea Nitrogen 12 mg/dL (9-16); Calcium 9.7 mg/dL (8.4-10.2); Carbon Dioxide 23 mmol/L (22-29); Chloride 108 mmol/L (96-108); Creatinine Clr Calc Pharmacy 88.7; Estimated Glomerular Filt Rate > 60; Glucose Random 100 mg/dL (60-115); Magnesium 1.9 mg/dL (1.6-2.6); Potassium 4.5 mmol/L (3.3-5.1); Sodium 139 mmol/L (135-145); Total Protein 7.5 g/dL (6.5-8.0)
[2024-07-20 16:26] VITALS: BP 149/78; PULSE 62; RESP 18; O2SAT 100
[2024-07-20] MEDS: Ketorolac Tromethamine 15 MG/ML VIAL IVPUSH (17:04)
[2024-07-20] MEDS: Morphine Sulfate 4 MG/ML CARTRIDGE IVPUSH ×2 (17:04→21:26)
[2024-07-20] MEDS: ondansetron HCL 4 MG/2 ML VIAL IVPUSH (17:04)
[2024-07-20] MEDS: 0.9 % Sodium Chloride 1,000 ML 999 ML IV (17:05)
[2024-07-20 17:16] LABS: Appearance Urine Clear; Color Urine Yellow; Glucose Urine UA Negative (Negative); Leukocyte Esterase Urine Trace (Negative); Nitrite Urine Negative (Negative); PH 5.5 (5.0-9.0); Specific Gravity - Urine >= 1.030 (1.005-1.025); UMIC TRIGGER UACC YES; Urine Blood Large (3+) (Negative); Urine Ketones 80 mg/dL (Negative); Urine Protein 30 (1+) mg/dL (Neg-Trace)
[2024-07-20 17:20] LABS: Bacteria Urine None Seen (None Seen); RBC Urine >20 /HPF (0-2); Squamous Epithelial Cell Urine 0-2 /HPF (0-2); UACC Culture Trigger YES
[2024-07-20 18:33] VITALS: BP 148/78; PULSE 98; RESP 18; O2SAT 97
[2024-07-20] MEDS: Tamsulosin HCL 0.4 MG CAPSULE PO (18:45)
[2024-07-20] MEDS: predniSONE 20 MG TABLET PO (18:45)
[2024-07-20 19:22] VITALS: BP 127/77; PULSE 83; RESP 16; TEMP 36.8; O2SAT 95
[2024-07-20] MEDS: 0.9 % Sodium Chloride 1,000 ML 200 ML IVCONT (19:24)
--- NOTE | 2024-07-20 20:00 | P.HPHOSP_ITS ---
History of Present Illness Date of Service: 07/20/24 Attending physician on admission: Swathi Magaña Chief Complaint: Right pelvic pain Leonard Mccartney is a 53 years old man with past medical history significant for nephrolithiasis requiring stent placement, BPH and GERD on Flomax presents to the emergency department complaining of severe right-sided pelvic pain radiated to right flank associated with nausea and vomiting. He denied any significant urinary symptoms or bloody hearing. He denies fever or chills. He did not report any headache, dizziness or palpitations. He did not report any acute cardiopulmonary symptoms. He smokes marijuana occasionally. Denied illicit drug use or tobacco smoking. In the ED, he was found to have stable vital signs. Last vital signs are normal. Blood workup showed no leukocytosis. Hemoglobin and platelets are normal. CMP is normal. Urinalysis showed no evidence of UTI. There is 1+ proteinuria. Abdomen pelvis CT scan with IV contrast showed obstructing 7 mm calculus in the distal right ureter resulting in my hydroureteronephrosis and mild periureteral stranding, and enlarged prostate. ED tx: Ketorolac 15 mg IV, morphine 4 mg IV, Zofran 4 mg IV and TL, tamsulosin 0.4 mg p.o. prednisone 20 mg. Review of Systems 2 Review of Systems: All 12 systems were reviewed and normal except as noted in HPI. [facility] Medical History Kidney stones Liver nodule Lung nodule Ptosis Thyroid nodule Surgical History History of cholecystectomy Social History Smoked in Last 30 Days: No Use of substances other than those prescribed or required for medical reasons: Yes Substance Use Type: Marijuana Substance Use Frequency: Weekly Advance Directives: No Advance Directives Information Provided: No Meds Allergies Allergy/AdvReac Type Severity Reaction Status Date / Time No Known Allergies Allergy Verified 07/20/24 15:14 [No Known Allergies*] Active Medications: Current Medications Acetaminophen (Acetaminophen 325 Mg Tablet) 975 mg PO Q6H PRN PRN Reason: Pain, Mild (Pain Scale 1-3), fever or headache Ceftriaxone Sodium (Ceftriaxone Sodium 1 Gm Vial) 1 gm IVPUSH ONCE ONE Stop: 07/21/24 09:01 Sodium Chloride (Ns) 1,000 mls @ 200 mls/hr IVCONT .Q5H HARMEET Stop: 07/21/24 00:14 Last Admin: 07/20/24 19:24 Dose: 200 mls/hr Ketorolac Tromethamine (Ketorolac Tromethamine 15 Mg/Ml Vial) 15 mg IVPUSH Q8H PRN PRN Reason: Pain, Moderate(Pain Scale 4-6) Melatonin (Melatonin 3 Mg Tablet) 6 mg PO BEDTIME PRN PRN Reason: Insomnia Morphine Sulfate (Morphine Sulfate 4 Mg/Ml Cartridge) 4 mg IVPUSH Q3H PRN; Protocol PRN Reason: Pain, Severe (Pain Scale 7-10) Ondansetron HCl (Ondansetron Hcl 4 Mg/2 Ml Vial) 4 mg IVPUSH Q8H PRN PRN Reason: Nausea and Vomiting Sodium Chloride (0.9 % Sodium Chloride Flush 3 Ml Syringe) 3 ml IVFLUSH QSHIFT [facility] Physical Exam 2 Vital Signs and Narrative: Vital Signs: Last Vital Signs Temp 98.2 F 07/20/24 19:22 Pulse 83 07/20/24 19:22 Resp 16 07/20/24 19:22 BP 127/77 07/20/24 19:22 Pulse Ox 95 07/20/24 19:22 O2 Del Method Room Air 07/20/24 19:22 BMI result Body Mass Index 34.1 Constitutional - Awake and Alert, No apparent distress. Pleasant. Cooperative. Afebrile. HEENT - PER, EOMI. Normal sclerae. Heart - RRR, No murmurs. Lungs - Normal lung expansion, Normal respiratory effort, No respiratory distress, CTA bilaterally Abdomen - NT / ND; +BS; No rebound or guarding - No CVA tenderness Extremities - no calf tenderness bilaterally, no swelling Musculoskeletal - Normal inspection, normal ROM Skin - Warm/Dry Neurological - Alert & oriented x3. Normal speech. Psychological - Appropriate affect Results Labs 07/20/24 15:26 07/20/24 15:26 Labs: Laboratory Results - last 24 hr 07/20/24 07/20/24 15:26 17:10 MCV 82.4 MCH 28.7 MCHC 34.9 RDW 14.2 Plt Count 337 MPV 10.3 Immature Gran % (Auto) 0.3 Neut % (Auto) 72.3 Lymph % (Auto) 16.7 L [place] % (Auto) 7.5 Eos % (Auto) 2.2 Baso % (Auto) 1.0 Lymph # (Auto) 1.5 [place] # (Auto) 0.7 Eos # (Auto) 0.2 Baso # (Auto) 0.1 Abs Immat Gran (auto) 0.03 Absolute Neuts (auto) 6.7 Absolute Nucleated RBC 0.000 Nucleated RBC % (auto) 0.0 Anion Gap 13 Estim Creat Clear Calc 88.7 Estimated GFR > 60 Random Glucose 100 Calcium 9.7 Magnesium 1.9 Total Bilirubin 0.6 Direct Bilirubin 0.2 AST 20 ALT 18 Alkaline Phosphatase 74 Total Protein 7.5 Albumin 4.0 Urine Color Yellow Urine Appearance Clear Urine pH 5.5 Ur Specific [place] >= 1.030 H Urine Protein 30 (1+) H Urine Glucose (UA) Negative Urine Ketones 80 Urine Blood Large (3+) H Urine Nitrite Negative Ur Leukocyte Esterase Trace H Urine RBC >20 H Urine WBC 11-20 H Ur Squamous Epith Cells 0-2 Urine Bacteria None Seen Hyaline Casts 3-5 Imaging Radiologist's Impressions: Impressions Abdomen/Pelvis CT 07/20/24 15:46 IMPRESSION: 1. Obstructing 7 mm calculus in the distal right ureter resulting in mild hydroureteronephrosis and mild periureteral stranding. 2. A few nonobstructing renal calculi in the left kidney, the largest of which is a 3 mm stone in the lower pole of the left kidney. 3. Stable left adrenal adenoma. 4. Mild splenomegaly. 5. Markedly enlarged prostate measures 7.3 cm in transverse. Fleischner guidelines were followed. Electronically signed by: Nadira Porter MD 07/20/2024 04:27 PM EDT RP Assessment and Plan (1) Calculus of distal right ureter: Status: Acute (2) Hydronephrosis: Qualifiers: Hydronephrosis type: unspecified Qualified Code(s): N13.30 - Unspecified hydronephrosis Status: Acute (3) GERD (gastroesophageal reflux disease): Qualifiers: Esophagitis presence: esophagitis presence not specified Qualified Code(s): K21.9 - Gastro-esophageal reflux disease without esophagitis Status: Acute (4) Kidney stones: Status: Acute (5) UTI (urinary tract infection): Qualifiers: Urinary tract infection type: acute cystitis Hematuria presence: w ithout hematuria Qualified Code(s): N30.00 - Acute cystitis without hematuria Status: Acute Plan Leonard Mccartney is a 53 y/o man admitted with: * Obstructive renal calculi to the right distal ureter + mild hydroureteronephrosis and mild periureteral stranding associated with UTI. Admit to hospitalist service. NPO after midnight. Pain control with morphine and Toradol as needed. Empiric IV antibiotic therapy. UC obtained -will follow results. Continue Flomax. Urology consult (notified by ED). * BPH. Continue Flomax. * GERD. Continue PPI. DVT prophylaxis: SCDs. Early ambulation. Code status: Full Patient will need hospitalization for at least 2 midnights for obstructive renal calculi associated with UTI and hydroureteronephrosis therapy with IV pain meds and empiric antibiotic therapy as well evaluation by urology service for possible procedure. Quality Stroke Does the patient have a stroke diagnosis?: No VTE Prior VTE?: No VTE Risk Level:: Medical - moderate - high VTE Device Contraindication: N/A - Device Ordered VTE Drug Contraindication: Treatment Not Indicated
[2024-07-20 22:45] VITALS: BP 110/64; PULSE 81; RESP 16; TEMP 36.5; O2SAT 95
--- NOTE | 2024-07-20 23:49 | PC.NURSE ---
Took over care at 23:00pm from ROSELYN Proctor, pt resting in bed, no sign of distress at this time.
[2024-07-21] MEDS: 0.9 % Sodium Chloride Flush 3 ML SYRINGE IVFLUSH ×3 (01:29→15:08)
[2024-07-21] MEDS: Morphine Sulfate 4 MG/ML CARTRIDGE IVPUSH ×7 (01:47→22:18)
--- NOTE | 2024-07-21 01:52 | PC.NURSE ---
Medicated per Mar.
--- NOTE | 2024-07-21 03:41 | PC.NURSE ---
pt sleeping at this time, no sign of distress.
[2024-07-21 05:01] LABS: MANUAL DIFF FLAG NO
[2024-07-21 05:05] LABS: Basophils Absolute Auto 0.1 X10*3/uL (0.0-0.2); Basophils Percent Auto 0.5 % (0-2); Eosinophils Percent Auto 0.3 % (0-4); Hematocrit 40.9 % (42.0-52.0); Hemoglobin 13.9 g/dl (14.0-18.0); Imm Gran Abs Auto 0.04 X10*3/uL (0.00-0.03); Imm Gran Pct Auto 0.4 % (0.0-0.4); Lymphocytes Absolute Auto 1.4 X10*3/uL (1.2-4.9); Lymphocytes Percent Auto 13.3 % (20-40); Mean Corpuscular Hemoglobin 28.3 pg (27.0-33.0); Mean Corpuscular Volume 83.1 fL (80.0-98.0); Mean Platelet Volume 10.9 fL (9.4-12.4); Monocytes Absolute Auto 0.6 X10*3/uL (0.1-1.2); Monocytes Percent Auto 5.3 % (2-11); Neutrophils Absolute Auto 8.5 x10*3/uL (2.0-8.3); Neutrophils Percent Auto 80.2 % (45-73); Platelet Count 328 X10*3/uL (160-400); Red Blood Count 4.92 X10*6/uL (4.60-5.80); White Blood Count 10.6 X10*3/uL (4.8-10.8)
[2024-07-21 05:19] LABS: Anion Gap 15 (12-20); Blood Urea Nitrogen 11 mg/dL (9-16); Calcium 9.4 mg/dL (8.4-10.2); Carbon Dioxide 24 mmol/L (22-29); Chloride 108 mmol/L (96-108); Creatinine Clr Calc Pharmacy 123.6; Estimated Glomerular Filt Rate > 60; Glucose Random 101 mg/dL (60-115); Potassium 3.9 mmol/L (3.3-5.1); Sodium 143 mmol/L (135-145)
[2024-07-21] MEDS: Omeprazole 20 MG CAPSULE.DR PO (06:22)
--- NOTE | 2024-07-21 06:32 | PC.NURSE ---
medicated per mar.
[2024-07-21 07:50] VITALS: BP 121/63; PULSE 70; RESP 18; TEMP 36.8; O2SAT 98
[2024-07-21 08:00] VITALS: RESP 14
[2024-07-21] MEDS: Tamsulosin HCL 0.4 MG CAPSULE PO (08:37)
[2024-07-21] MEDS: cefTRIAXone sodium 1 GM VIAL IVPUSH (08:37)
[2024-07-21] MEDS: Ketorolac Tromethamine 15 MG/ML VIAL IVPUSH ×2 (10:00→15:52)
--- NOTE | 2024-07-21 10:29 | PM.UROCN ---
History of Present Illness Consult details Consult date: 07/21/24 Narrative: CC: Distal right ureteric stone 53-year-old male Recurrent stone former Present through emergency department with severe right-sided pelvic pain radiating to right flank Associated nausea and vomiting Pain 9/10 Responded well to medications in the emergency room WBC 10.6, calcium 9.4, creatinine 0.9 Imaging - 7 mm calculus in the distal right ureter resulting in mild hydroureteronephrosis and mild periureteral stranding Recommend cystoscopy, right retrograde, right ureteroscopy with laser lithotripsy stent placement Review of Systems Constitutional: Constitutional: Denies chills and Denies fever(s) Cardiovascular: Cardiovascular: Reports no additional cardiovascular complaints and Denies syncope Respiratory: Respiratory: Denies cough Gastrointestinal: Gastrointestinal: Denies abdominal pain and Denies heartburn Genitourinary: Genitourinary: Reports as per HPI and Denies change in libido Neurologic: Denies syncope Psychiatric: Psychiatric: Denies change in libido Endocrine: Endocrine: Denies change in libido [facility] Past Medical History Medical History Kidney stones Liver nodule Lung nodule Ptosis Thyroid nodule Surgical History Surgical History History of cholecystectomy Social History Social History Patient Tobacco Use Status: Never used Tobacco Smoked in Last 30 Days: No Use of substances other than those prescribed or required for medical reasons: Yes Substance Use Type: Marijuana Substance Use Frequency: Weekly Advance Directives: No Advance Directives Information Provided: No Nutrition Risks: No Nutritional Risk Meds Allergies Allergy/AdvReac Type Severity Reaction Status Date / Time No Known Allergies Allergy Verified 07/20/24 15:14 [No Known Allergies*] Active Medications: Current Medications Acetaminophen (Acetaminophen 325 Mg Tablet) 975 mg PO Q6H PRN PRN Reason: Pain, Mild (Pain Scale 1-3), fever or headache Ceftriaxone Sodium (Ceftriaxone Sodium 1 Gm Vial) 1 gm IVPUSH Q24H [facility] Last Admin: 07/21/24 08:37 Dose: 1 gm Dextrose/Sodium Chloride (D5ns) 1,000 mls @ 80 mls/hr IVCONT .[id number] [facility] Ketorolac Tromethamine (Ketorolac Tromethamine 15 Mg/Ml Vial) 15 mg IVPUSH Q8H PRN PRN Reason: Pain, Moderate(Pain Scale 4-6) Melatonin (Melatonin 3 Mg Tablet) 6 mg PO BEDTIME PRN PRN Reason: Insomnia Morphine Sulfate (Morphine Sulfate 4 Mg/Ml Cartridge) 4 mg IVPUSH Q3H PRN; Protocol PRN Reason: Pain, Severe (Pain Scale 7-10) Last Admin: 07/21/24 08:00 Dose: 4 mg Omeprazole (Omeprazole 20 Mg Capsule.Dr) 20 mg PO DAILY@0630 [facility] Last Admin: 07/21/24 06:22 Dose: 20 mg Ondansetron HCl (Ondansetron Hcl 4 Mg/2 Ml Vial) 4 mg IVPUSH Q8H PRN PRN Reason: Nausea and Vomiting Sodium Chloride (0.9 % Sodium Chloride Flush 3 Ml Syringe) 3 ml IVFLUSH QSHIFT [facility] Last Admin: 07/21/24 07:53 Dose: 3 ml Tamsulosin HCl (Tamsulosin Hcl 0.4 Mg Capsule) 0.4 mg PO DAILY [facility] Last Admin: 07/21/24 08:37 Dose: 0.4 mg Home Medications ?Medication ?Instructions ?Recorded ?Confirmed ?Last Taken ?Type tamsulosin 0.4 mg capsule 0.4 mg PO DAILY 07/21/24 Unknown History Physical Exam Vital Signs: Vital Signs: Last Vital Signs Temp 98.2 F 07/21/24 07:50 Pulse 70 07/21/24 07:50 Resp 14 07/21/24 08:00 BP 121/63 07/21/24 07:50 Pulse Ox 98 07/21/24 07:50 O2 Del Method Room Air 07/21/24 07:50 BMI result Body Mass Index 34.1 Const: General: cooperative, healthy appearing, comfortable and no acute distress Orientation/consciousness: patient oriented x3 HEENT: Face and sinus: Yes normal facial exam Mouth: moist mucous membranes Neck: Neck: Yes normal visual inspection, Yes full ROM and Yes trachea midline Chest: Chest palpation & inspection: normal inspection of the chest Resp: Effort & Inspection: normal respiratory effort, able to speak in complete sentences and no respiratory distress GI: Inspection: Yes normal to inspection Back/Spine/Pelvis: Cervical Spine: normal cervical lordosis Thoracic/Lumbar Spine: thoracic and lumbar spine normal to inspection Skin: General skin exam: no rashes or lesions noted Neuro: General: patient oriented x3, gait normal, tone normal and moves all extremities Extrem: General: Yes normal to inspection and Yes capillary refill normal Results Labs 07/21/24 04:05 07/21/24 04:05 Labs: Abnormal lab results 07/20/24 07/20/24 07/21/24 Range/Units 15:26 17:10 04:05 Hgb 13.9 L (14.0-18.0) g/dl Hct 40.9 L (42.0-52.0) % Neut % (Auto) 80.2 H (45-73) % Lymph % (Auto) 16.7 L 13.3 L (20-40) % Abs Immat Gran (auto) 0.04 H (0.00-0.03) X10*3/uL Absolute Neuts (auto) 8.5 H (2.0-8.3) x10*3/uL Ur Specific [place] >= 1.030 H (1.005-1.025) Urine Protein 30 (1+) H (Neg-Trace) mg/dL Urine Blood Large (3+) H (Negative) Ur Leukocyte Esterase Trace H (Negative) Urine RBC >20 H (0-2) /HPF Urine WBC 11-20 H (0-5) /HPF Short CBC 07/20/24 07/21/24 Range/Units 15:26 04:05 WBC 9.2 10.6 (4.8-10.8) X10*3/uL Hgb 15.0 13.9 L (14.0-18.0) g/dl Hct 43.0 40.9 L (42.0-52.0) % Plt Count 337 328 (160-400) X10*3/uL BMP 07/20/24 07/21/24 15:26 04:05 Sodium 139 143 Potassium 4.5 3.9 Chloride 108 108 Carbon Dioxide 23 24 BUN 12 11 Creatinine 1.24 0.89 Calcium 9.7 9.4 Liver Function 07/20/24 Range/Units 15:26 Total Bilirubin 0.6 (0.0-1.0) mg/dL Direct Bilirubin 0.2 (0.0-0.5) mg/dL AST 20 (5-37) U/L ALT 18 (0-40) U/L Alkaline Phosphatase 74 (39-117) U/L Albumin 4.0 (3.5-5.0) g/dL Urine 07/20/24 Range/Units 17:10 Urine Color Yellow Urine Appearance Clear Urine pH 5.5 (5.0-9.0) Ur Specific [place] >= 1.030 H (1.005-1.025) Urine Protein 30 (1+) H (Neg-Trace) mg/dL Urine Glucose (UA) Negative (Negative) mg/dL All other labs normal. Assessment and Plan (1) Calculus of distal right ureter: Status: Acute (2) Hydronephrosis: Qualifiers: Hydronephrosis type: unspecified Qualified Code(s): N13.30 - Unspecified hydronephrosis Status: Acute Plan Ureteroscopy We discussed the nature of the decision and reasonable alternatives for performing ureteroscopy. Options such as medical therapy were discussed. Interventions include chemical dissolution, ESWL, ureteroscopy with laser lithotripsy and stent placement, PCNL. The relative uncertainties and benefits related to each alternate procedure were adequately discussed. General surgical risks including, but not limited to - pain, bleeding, infection, myocardial infarction, pulmonary embolus, deep vein thrombosis and cerebrovascular accident which may result in further hospitalization were discussed. Full disclosure of the procedure as well as all major risks, benefits and complications were discussed including but not limited to damage to the urethra, bladder and kidney infection, damage to the ureter, stent migration or malposition, scarring to the renal pelvis, remnant stone fragments, subsequent stone passage with need for secondary procedures. The overall secondary procedure rate is approximately 10-15%. The overall clearance rate is approximately 90-95%. Success of the procedure in the short-term does not necessarily guarantee that long-term success will be maintained. Suitable follow up will need to be maintained. The patient showed understanding of discussion and wishes to proceed with - cystoscopy, retrograde, ureteroscopy, possible lithotripsy/stone basketing and stent on the right side Procedures Date of Service Date of Service: 07/21/24
--- NOTE | 2024-07-21 12:36 | PHA.MEDREC ---
Addendum entered by Tammie Delacruz RPh 07/21/24 12:50: [facility] reviewed Original Note: Pharmacy Consult ? Medication Reconciliation Pharmacy has completed the medication reconciliation. Spoke to pt to confirm meds.
[2024-07-21] MEDS: Dextrose 5 % and 0.9 % NaCl 1,000 ML 80 ML IVCONT (12:40)
[2024-07-21 15:04] VITALS: BP 130/68; PULSE 64; RESP 16; TEMP 36.3; O2SAT 97
--- NOTE | 2024-07-21 15:43 | HO.PM.IMPN ---
Subjective Subjective Date of Service: 07/21/24 Interval History: uti Mild hydronephrosis Review of Systems Abdominal pain seems to be improvin Denies any fever or chills Physical Exam Vital Signs: Vital Signs: Last Vital Signs Temp 97.3 F 07/21/24 15:04 Pulse 64 07/21/24 15:04 Resp 16 07/21/24 15:04 BP 130/68 07/21/24 15:04 Pulse Ox 97 07/21/24 15:04 O2 Del Method Room Air 07/21/24 15:04 BMI result Body Mass Index 34.1 Appearance: Alert.? Oriented X3.? cvs: [id number], [id number] , no murmur res: clear to auscultation ,no rhonchii or wheezing abd: no rebound or guarding ,nt, bs present. Gu:no cva tenderness ext pulses present , no cyanosis . neuro: axo3 , nonfocal. Objective Data Active Medications Acetaminophen (Acetaminophen 325 Mg Tablet) 975 mg PO Q6H PRN PRN Reason: Pain, Mild (Pain Scale 1-3), fever or headache Ceftriaxone Sodium (Ceftriaxone Sodium 1 Gm Vial) 1 gm IVPUSH Q24H [facility] Last Admin: 07/21/24 08:37 Dose: 1 gm Documented By: KIARA Dextrose/Sodium Chloride (D5ns) 1,000 mls @ 80 mls/hr IVCONT .[id number] [facility] Last Admin: 07/21/24 12:40 Dose: 80 mls/hr Documented By: KIARA Ketorolac Tromethamine (Ketorolac Tromethamine 15 Mg/Ml Vial) 15 mg IVPUSH Q8H PRN PRN Reason: Pain, Moderate(Pain Scale 4-6) Last Admin: 07/21/24 10:00 Dose: 15 mg Documented By: KIARA Melatonin (Melatonin 3 Mg Tablet) 6 mg PO BEDTIME PRN PRN Reason: Insomnia Morphine Sulfate (Morphine Sulfate 4 Mg/Ml Cartridge) 4 mg IVPUSH Q3H PRN; Protocol PRN Reason: Pain, Severe (Pain Scale 7-10) Last Admin: 07/21/24 15:06 Dose: 4 mg Documented By: SONA Omeprazole (Omeprazole 20 Mg Capsule.) 20 mg PO DAILY@0630 [facility] Last Admin: 07/21/24 06:22 Dose: 20 mg Documented By: KAUSHIK Ondansetron HCl (Ondansetron Hcl 4 Mg/2 Ml Vial) 4 mg IVPUSH Q8H PRN PRN Reason: Nausea and Vomiting Sodium Chloride (0.9 % Sodium Chloride Flush 3 Ml Syringe) 3 ml IVFLUSH QSHIFT [facility] Last Admin: 07/21/24 15:08 Dose: 3 ml Documented By: DITOLC Tamsulosin HCl (Tamsulosin Hcl 0.4 Mg Capsule) 0.4 mg PO DAILY [facility] Last Admin: 07/21/24 08:37 Dose: 0.4 mg Documented By: MCDONOH Labs 07/21/24 04:05 07/21/24 04:05 Labs: Laboratory Results - last 24 hr 07/20/24 07/21/24 17:10 04:05 MCV 83.1 MCH 28.3 MCHC 34.0 RDW 14.0 Plt Count 328 MPV 10.9 Immature Gran % (Auto) 0.4 Neut % (Auto) 80.2 H Lymph % (Auto) 13.3 L [place] % (Auto) 5.3 Eos % (Auto) 0.3 Baso % (Auto) 0.5 Lymph # (Auto) 1.4 [place] # (Auto) 0.6 Eos # (Auto) 0.0 Baso # (Auto) 0.1 Abs Immat Gran (auto) 0.04 H Absolute Neuts (auto) 8.5 H Absolute Nucleated RBC 0.000 Nucleated RBC % (auto) 0.0 Anion Gap 15 Estim Creat Clear Calc 123.6 Estimated GFR > 60 Random Glucose 101 Calcium 9.4 Urine Color Yellow Urine Appearance Clear Urine pH 5.5 Ur Specific [place] >= 1.030 H Urine Protein 30 (1+) H Urine Glucose (UA) Negative Urine Ketones 80 Urine Blood Large (3+) H Urine Nitrite Negative Ur Leukocyte Esterase Trace H Urine RBC >20 H Urine WBC 11-20 H Ur Squamous Epith Cells 0-2 Urine Bacteria None Seen Hyaline Casts 3-5 Microbiology Microbiology Results: Microbiology 07/20/24 Unknown Urine Culture - Preliminary Urine clean catch - Clean Catch Midstream No growth to date. Assessment and Plan (1) UTI (urinary tract infection): Status: Acute Plan 53 y/o man admitted with: Obstructive renal calculi to the right distal ureter + mild hydroureteronephrosis and mild periureteral stranding associated with UTI. Admit to hospitalist service. NPO after midnight. Pain control with morphine and Toradol as needed. Empiric IV antibiotic therapy. UC obtained -will follow results. Continue Flomax. Urology consult -npo past midnight ,might need stent in am BPH. Continue Flomax. GERD. Continue PPI. DVT prophylaxis: SCDs. Early ambulation. Code status: Full ongoing need for hospitlisation:obstructive renal calculi associated with UTI and hydroureteronephrosis therapy with IV pain meds and empiric antibiotic therapy as well evaluation by urology service for possible procedure. Quality Stroke Does the patient have a stroke diagnosis?: No VTE Prior VTE?: No VTE Risk Level:: Medical - moderate - high VTE Device Contraindication: N/A - Device Ordered VTE Drug Contraindication: Treatment Not Indicated
--- NOTE | 2024-07-21 15:54 | PC.NURSE ---
Pt. continues to c/o pain after PRn pain medicine given, requesting to try the toradol again. Medicated per NOV.
[2024-07-21 19:05] VITALS: PULSE 67; RESP 16; O2SAT 97
[2024-07-21 20:00] VITALS: BP 141/81; PULSE 60; RESP 16; TEMP 36.3; O2SAT 96
[2024-07-21 20:32] VITALS: BMI 34.7
[2024-07-22] VITALS (10 sets, daily range): BP systolic 120–175; BP diastolic 58–102; PULSE 61–95; RESP 16–20; TEMP 36.1–36.9; O2SAT 94–99
[2024-07-22] MEDS: Dextrose 5 % and 0.9 % NaCl 1,000 ML 80 ML IVCONT (00:10)
[2024-07-22] MEDS: Morphine Sulfate 4 MG/ML CARTRIDGE IVPUSH ×5 (01:05→14:11)
[2024-07-22] MEDS: cefTRIAXone sodium 1 GM VIAL IVPUSH (07:33)
[2024-07-22] MEDS: Multivitamin TABLET 1 TAB PO (07:33)
[2024-07-22] MEDS: Tamsulosin HCL 0.4 MG CAPSULE PO (07:33)
[2024-07-22 09:32] LABS: Alanine Aminotransferase 26 U/L (0-40); Albumin Level 3.4 g/dL (3.5-5.0); Alkaline Phosphatase 73 U/L (39-117); Anion Gap 9 (12-20); Aspartate Amino Transferase 31 U/L (5-37); Bilirubin Total 0.7 mg/dL (0.0-1.0); Blood Urea Nitrogen 11 mg/dL (9-16); Calcium 8.8 mg/dL (8.4-10.2); Carbon Dioxide 25 mmol/L (22-29); Chloride 112 mmol/L (96-108); Creatinine Clr Calc Pharmacy 88.8; Estimated Glomerular Filt Rate > 60; Glucose Random 102 mg/dL (60-115); Potassium 4.1 mmol/L (3.3-5.1); Sodium 142 mmol/L (135-145); Total Protein 6.1 g/dL (6.5-8.0)
[2024-07-22] MEDS: Dextrose 5 % and 0.9 % NaCl 1,000 ML 100 ML IVCONT ×2 (10:53→23:55)
--- NOTE | 2024-07-22 11:35 | MHC.CLN ---
NUTRITION PATIENT CURRENTLY NPO. NUTRITION CONSULT ROUTINE . REPORTED 14-23# WEIGHT LOSS. REVIEW OF EMR DOES NOT SUPPORT WEIGHT LOSS. RD TO FOLLOW UP WEEKLY.
--- NOTE | 2024-07-22 14:28 | MHC.CM.PN ---
PATIENT LIVES IN AN APARTMENT ALONE. FUNCTIONALLY INDEPENDENT. DENIES USE OF DME OR SERVICES. PCP FREDERIC DAVIS MD NO HCP. CM PROVIDED EDUCATION AND OFFERED ASSISTANCE. PATIENT DECLINED. DP: GOAL IS HOME SELF CARE. FRIEND, BOBBY, TO TRANSPORT. CM WILL CONTINUE TO FOLLOW.
--- NOTE | 2024-07-22 16:29 | HO.PM.IMPN ---
Subjective Subjective Date of Service: 07/23/24 Interval History: uti Mild hydronephrosis Review of Systems abd pain seems improving Physical Exam Vital Signs: Vital Signs: Last Vital Signs Temp 98.3 F 07/22/24 15:32 Pulse 62 07/22/24 15:32 Resp 18 07/22/24 15:32 BP 139/75 07/22/24 15:32 Pulse Ox 97 07/22/24 15:32 O2 Del Method Room Air 07/22/24 15:32 BMI result Body Mass Index 34.7 Appearance: Alert.? Oriented X3.? cvs: rrr, [id number] . res: clear to auscultation ,no rhonchii or wheezing abd: no rebound or guarding ,nt, bs present. Gu:no cva tenderness ext pulses present , no cyanosis . neuro: axo3 , nonfocal. Objective Data Active Medications Ceftriaxone Sodium (Ceftriaxone Sodium 1 Gm Vial) 1 gm IVPUSH Q24H [facility] Last Admin: 07/22/24 07:33 Dose: 1 gm Documented By: LONNY Dextrose/Sodium Chloride (D5ns) 1,000 mls @ 100 mls/hr IVCONT .Q10H [facility] Last Admin: 07/22/24 10:53 Dose: 100 mls/hr Documented By: LONNY Melatonin (Melatonin 3 Mg Tablet) 6 mg PO BEDTIME PRN PRN Reason: Insomnia Morphine Sulfate (Morphine Sulfate 4 Mg/Ml Cartridge) 4 mg IVPUSH Q3H PRN; Protocol PRN Reason: Pain, Severe (Pain Scale 7-10) Last Admin: 07/22/24 14:11 Dose: 4 mg Documented By: LONNY Multivitamins/Vitamin C (Multivitamin Tablet) 1 tab PO DAILY [facility] Last Admin: 07/22/24 07:33 Dose: 1 tab Documented By: LONNY Omeprazole (Omeprazole 20 Mg Capsule.Dr) 20 mg PO DAILY@0630 [facility] Last Admin: 07/22/24 05:01 Dose: Not Given Documented By: RODRIGUEZ Non-Admin Reason: NPO Ondansetron HCl (Ondansetron Hcl 4 Mg/2 Ml Vial) 4 mg IVPUSH Q8H PRN PRN Reason: Nausea and Vomiting Sodium Chloride (0.9 % Sodium Chloride Flush 3 Ml Syringe) 3 ml IVFLUSH QSHIFT [facility] Last Admin: 07/22/24 14:22 Dose: Not Given Documented By: LONNY Non-Admin Reason: IV Running Tamsulosin HCl (Tamsulosin Hcl 0.4 Mg Capsule) 0.4 mg PO DAILY [facility] Last Admin: 07/22/24 07:33 Dose: 0.4 mg Documented By: LONNY Labs 07/21/24 04:05 07/22/24 09:01 Labs: Laboratory Results - last 24 hr 07/22/24 09:01 Anion Gap 9 L Estim Creat Clear Calc 88.8 Estimated GFR > 60 Random Glucose 102 Calcium 8.8 D Total Bilirubin 0.7 AST 31 ALT 26 Alkaline Phosphatase 73 Total Protein 6.1 L Albumin 3.4 L Microbiology Microbiology Results: Microbiology 07/20/24 Unknown Urine Culture - Final Urine clean catch - Clean Catch Midstream No growth. Assessment and Plan (1) UTI (urinary tract infection): Status: Acute Plan 53 y/o man admitted with: Obstructive renal calculi to the right distal ureter + mild hydroureteronephrosis and mild periureteral stranding associated with UTI. Admit to hospitalist service. NPO after midnight. Pain control with morphine and Toradol as needed. Empiric IV antibiotic therapy. UC obtained -will follow results. Continue Flomax. Urology consult -npo past midnight ,might need stent in am BPH. Continue Flomax. GERD. Continue PPI. DVT prophylaxis: SCDs. Early ambulation. Code status: Full ongoing need for hospitlisation:obstructive renal calculi associated with UTI and hydroureteronephrosis therapy with IV pain meds and empiric antibiotic therapy as well evaluation by urology service for possible procedure. Quality Stroke Does the patient have a stroke diagnosis?: No VTE Prior VTE?: No VTE Risk Level:: Medical - moderate - high VTE Device Contraindication: N/A - Device Ordered VTE Drug Contraindication: Treatment Not Indicated
--- NOTE | 2024-07-22 16:43 | HO.ANESPROP2 ---
[facility] Active Problems Active Problems: All Active Problems UTI (urinary tract infection) (Acute) Hydronephrosis (Acute) Calculus of distal right ureter (Acute) GERD (gastroesophageal reflux disease) (Acute) Kidney stones (Acute) Past Medical History Medical History Kidney stones Liver nodule Lung nodule Ptosis Thyroid nodule Family History Family history of problems with anesthesia: No Surgical History Surgical History History of cholecystectomy History of Problems with Anesthesia: No Social History Social History Household Members: Significant Other and None Housing: Apartment Patient Tobacco Use Status: Never used Tobacco Substance Use Type: Marijuana service: No Meds Allergies Allergy/AdvReac Type Severity Reaction Status Date / Time No Known Allergies Allergy Verified 07/20/24 15:14 [No Known Allergies*] Active Medications: Current Medications Ceftriaxone Sodium (Ceftriaxone Sodium 1 Gm Vial) 1 gm IVPUSH Q24H [facility] Last Admin: 07/22/24 07:33 Dose: 1 gm Dextrose/Sodium Chloride (D5ns) 1,000 mls @ 100 mls/hr IVCONT .Q10H [facility] Last Admin: 07/22/24 10:53 Dose: 100 mls/hr Melatonin (Melatonin 3 Mg Tablet) 6 mg PO BEDTIME PRN PRN Reason: Insomnia Morphine Sulfate (Morphine Sulfate 4 Mg/Ml Cartridge) 4 mg IVPUSH Q3H PRN; Protocol PRN Reason: Pain, Severe (Pain Scale 7-10) Last Admin: 07/22/24 14:11 Dose: 4 mg Multivitamins/Vitamin C (Multivitamin Tablet) 1 tab PO DAILY [facility] Last Admin: 07/22/24 07:33 Dose: 1 tab Omeprazole (Omeprazole 20 Mg Capsule.Dr) 20 mg PO DAILY@0630 [facility] Last Admin: 07/22/24 05:01 Dose: Not Given Ondansetron HCl (Ondansetron Hcl 4 Mg/2 Ml Vial) 4 mg IVPUSH Q8H PRN PRN Reason: Nausea and Vomiting Sodium Chloride (0.9 % Sodium Chloride Flush 3 Ml Syringe) 3 ml IVFLUSH QSHIFT [facility] Last Admin: 07/22/24 14:22 Dose: Not Given Tamsulosin HCl (Tamsulosin Hcl 0.4 Mg Capsule) 0.4 mg PO DAILY [facility] Last Admin: 07/22/24 07:33 Dose: 0.4 mg Home Medications ?Medication ?Instructions ?Recorded ?Confirmed ?Last Taken ?Type multivitamin 1 tab PO DAILY 07/21/24 07/21/24 07/20/24 History omeprazole 20 mg capsule,delayed 20 mg PO DAILY@0630 07/21/24 07/21/24 07/20/24 History release tamsulosin 0.4 mg capsule 0.4 mg PO DAILY 07/21/24 07/21/24 07/20/24 History Exam Height,Weight and Vital Signs: Height 6 ft Weight 116 kg Last Vital Signs Temp 98.3 F 07/22/24 15:32 Pulse 62 07/22/24 15:32 Resp 18 07/22/24 15:32 BP 139/75 07/22/24 15:32 Pulse Ox 97 07/22/24 15:32 O2 Del Method Room Air 07/22/24 15:32 Pertinent Lab Results Pertinent Lab Results: Laboratory Tests 07/20/24 07/20/24 07/21/24 15:26 17:10 04:05 WBC 9.2 10.6 RBC 5.22 4.92 Hgb 15.0 13.9 L Hct 43.0 40.9 L MCV 82.4 83.1 MCH 28.7 28.3 MCHC 34.9 34.0 RDW 14.2 14.0 Plt Count 337 328 MPV 10.3 10.9 Immature Gran % (Auto) 0.3 0.4 Neut % (Auto) 72.3 80.2 H Lymph % (Auto) 16.7 L 13.3 L [place] % (Auto) 7.5 5.3 Eos % (Auto) 2.2 0.3 Baso % (Auto) 1.0 0.5 Lymph # (Auto) 1.5 1.4 [place] # (Auto) 0.7 0.6 Eos # (Auto) 0.2 0.0 Baso # (Auto) 0.1 0.1 Abs Immat Gran (auto) 0.03 0.04 H Absolute Neuts (auto) 6.7 8.5 H Absolute Nucleated RBC 0.000 0.000 Nucleated RBC % (auto) 0.0 0.0 Sodium 139 143 Potassium 4.5 3.9 Chloride 108 108 Carbon Dioxide 23 24 Anion Gap 13 15 BUN 12 11 Creatinine 1.24 0.89 Estim Creat Clear Calc 88.7 123.6 Estimated GFR > 60 > 60 Random Glucose 100 101 Calcium 9.7 9.4 Magnesium 1.9 Total Bilirubin 0.6 Direct Bilirubin 0.2 AST 20 ALT 18 Alkaline Phosphatase 74 Total Protein 7.5 Albumin 4.0 Urine Color Yellow Urine Appearance Clear Urine pH 5.5 Ur Specific [place] >= 1.030 H Urine Protein 30 (1+) H Urine Glucose (UA) Negative Urine Ketones 80 Urine Blood Large (3+) H Urine Nitrite Negative Ur Leukocyte Esterase Trace H Urine RBC >20 H Urine WBC 11-20 H Ur Squamous Epith Cells 0-2 Urine Bacteria None Seen Hyaline Casts 3-5 07/22/24 09:01 WBC RBC Hgb Hct MCV MCH MCHC RDW Plt Count MPV Immature Gran % (Auto) Neut % (Auto) Lymph % (Auto) [place] % (Auto) Eos % (Auto) Baso % (Auto) Lymph # (Auto) [place] # (Auto) Eos # (Auto) Baso # (Auto) Abs Immat Gran (auto) Absolute Neuts (auto) Absolute Nucleated RBC Nucleated RBC % (auto) Sodium 142 Potassium 4.1 Chloride 112 H Carbon Dioxide 25 Anion Gap 9 L BUN 11 Creatinine 1.25 Estim Creat Clear Calc 88.8 Estimated GFR > 60 Random Glucose 102 Calcium 8.8 D Magnesium Total Bilirubin 0.7 Direct Bilirubin AST 31 ALT 26 Alkaline Phosphatase 73 Total Protein 6.1 L Albumin 3.4 L Urine Color Urine Appearance Urine pH Ur Specific [place] Urine Protein Urine Glucose (UA) Urine Ketones Urine Blood Urine Nitrite Ur Leukocyte Esterase Urine RBC Urine WBC Ur Squamous Epith Cells Urine Bacteria Hyaline Casts Airway Mallampati Class: II ( cap on front tooth, crowns laterally) TM Dist: >3cm Neck ROM: Full Heart: rrr Assessment and Plan Assessment Anesthesia Assessment: Anesthesia Plan Discussed and Chart Reviewed Final Anesthetic Review Family History of Problems with Anesthesia: No History of Problems with Anesthesia: No NPO: Yes ASA Class: II Final Preanesthetic Review: No Changes in Pt Med Stat, Meds/Allgs Chart Reviewed and Consent Obtained/Reviewed Patient Risk: Low Procedure Risk: Low Anesthetic Plan Anesthetic Plan: GA Disposition: Standard PACU
--- NOTE | 2024-07-22 18:11 | MHC.SHP ---
Pre-Procedural Eval Section A - 24 Hr Update-Section A only Date of Service: 07/22/24 The patient is an INPATIENT: No Changes since office visit: No Cold of Flu in the past 2 weeks, No New Medical Problems, No Changes in Medication and No Patient answered all questions The patient has been examined within 24 hours of the surgical procedure. The History & Physical has been completed within 30 days and I have reviewed it.: Yes Section B - Complete if H&P > 30 days Chief Complaint: Obstructive renal calculi and hydronephrosis Allergies: Allergies Allergy/AdvReac Type Severity Reaction Status Date / Time No Known Allergies Allergy Verified 07/20/24 15:14 [No Known Allergies*] Plan Diagnosis/Plan: Unchanged (Cystoscopy, right retrograde, right ureteroscopy with laser lithotripsy stent placement) I have reviewed the history and physical and performed a pertinent physical examination on my patient. No changes have occurred unless specified. Time Spent With Patient Time: Total time managing care of this patient today ____ minutes.
[2024-07-22] MEDS: levoFLOXacin/D5W 500 MG/100 ML PIGGYBACK 100 MG IV (18:38)
--- NOTE | 2024-07-22 19:24 | P.DS_ITS ---
DS: Providers Provider Date of Service: 07/22/24 Date of admission: 07/20/24 19:54 Primary care physician: Bandar Mooer MD Consults: 07/20/24 19:58 Consult to Urology [place]ine [place]ing [place] [facility] [place] [facility] Reason for consultation: Obstructive renal stone, UTI Has provider been notified: Yes Discharging clinician: Titus Rajan DS: Diagnosis Discharge Diagnosis (1) Calculus of distal right ureter: Status: Acute (2) Hydronephrosis: Status: Acute DS: Summary Hospital Course Hospital Course: Admit Monday Procedure performed Monday with ureteroscopy laser lithotripsy and stent placement right side Time spent discussing smoking cessation with patient: 3 to 10 minutes Status at Discharge Functional status at discharge: independent ambulation Overall status at discharge: patient is back to baseline Time Attestation Total time managing care of this patient today: 25 mintues. Discharge Coordination Time (in mins): 15 Quality: Safe Use of Opioids Does Pt have an Active Cancer Diagnosis on the Problem List?: No Quality: Stroke Does the patient have a stroke diagnosis?: No Physical Exam Vital Signs: Vital Signs: Last Vital Signs Temp 98.5 F 07/22/24 16:48 Pulse 65 07/22/24 16:48 Resp 16 07/22/24 16:48 BP 144/81 H 07/22/24 16:48 Pulse Ox 96 07/22/24 16:48 O2 Del Method Room Air 07/22/24 16:48 BMI result Body Mass Index 34.7 DS: Data Data Completed and Pending Pending studies at discharge: Pending at discharge 07/22/24 19:23 Surgical [PTH] Routine Labs on day of discharge: Laboratory Results - last 24 hr 07/22/24 09:01 Sodium 142 Potassium 4.1 Chloride 112 H Carbon Dioxide 25 Anion Gap 9 L BUN 11 Creatinine 1.25 Estim Creat Clear Calc 88.8 Estimated GFR > 60 Random Glucose 102 Calcium 8.8 D Total Bilirubin 0.7 AST 31 ALT 26 Alkaline Phosphatase 73 Total Protein 6.1 L Albumin 3.[address] scan - abdomen: Radiologist's impression: ITS Impressions Abdomen/Pelvis CT 07/20/24 15:46 IMPRESSION: 1. Obstructing 7 mm calculus in the distal right ureter resulting in mild hydroureteronephrosis and mild periureteral stranding. 2. A few nonobstructing renal calculi in the left kidney, the largest of which is a 3 mm stone in the lower pole of the left kidney. 3. Stable left adrenal adenoma. 4. Mild splenomegaly. 5. Markedly enlarged prostate measures 7.3 cm in transverse. Fleischner guidelines were followed. Electronically signed by: Nadira Porter MD 07/20/2024 04:27 PM EDT RP Discharge Plan Discharge Anticipated Discharge Date/Time: 07/22/24 19:25 Patient Disposition: Home, Self-Care Discharge Diagnosis: Distal right ureteric stone with hydroureteronephrosis Referrals: Titus Rajan MD [Physician] - 1 Week Bandar Moore MD [Primary Care Provider] - None Discharge Medications: New phenazopyridine [Pyridium] 100 mg tablet 100 mg PO TID PRN (Reason: Spasm) 4 Days Qty: 12 0RF naproxen 500 mg tablet 500 mg PO BID PRN (Reason: pain) 7 Days Qty: 14 0RF oxycodone 5 mg tablet 5 mg PO Q8H PRN (Reason: pain) 3 Days Qty: 8 0RF Rx Instructions: Partial Fill upon patient request. Continued tamsulosin 0.4 mg capsule 0.4 mg PO DAILY multivitamin Tablet 1 tab PO DAILY omeprazole 20 mg Capsule,Delayed Release(Dr/Ec) 20 mg PO DAILY@0630 Diet: Advance to usual diet Activity on Discharge: As tolerated Stand Alone Forms: Patient Portal Discharge page Print Language: Panamanian Care Plan Goals: Stones Health Concerns: Stones Plan of Treatment: Stones Assessment: Stones Patient Instructions: Ureteroscopy (DC)
[2024-07-22] MEDS: Phenazopyridine HCL 100 MG TABLET PO (19:32)
[2024-07-22] MEDS: Melatonin 3 MG TABLET 6 MG PO (23:54)
[2024-07-23] MEDS: Acetaminophen 325 MG TABLET 975 MG PO (01:48)
[2024-07-23 03:42] VITALS: BP 120/70; PULSE 64; RESP 17; TEMP 36; O2SAT 96
[2024-07-23] MEDS: Omeprazole 20 MG CAPSULE.DR PO (06:24)
[2024-07-23 07:57] VITALS: BP 133/80; PULSE 57; RESP 18; TEMP 36.4; O2SAT 97
[2024-07-23] MEDS: cefTRIAXone sodium 1 GM VIAL IVPUSH (08:21)
[2024-07-23] MEDS: Multivitamin TABLET 1 TAB PO (08:21)
[2024-07-23] MEDS: Tamsulosin HCL 0.4 MG CAPSULE PO (08:21)
[2024-07-23] MEDS: Dextrose 5 % and 0.9 % NaCl 1,000 ML 100 ML IVCONT (08:21)
--- NOTE | 2024-07-23 09:00 | PM.DS ---
DS: Providers Provider Date of Service: 07/23/24 Date of admission: 07/20/24 19:54 Date of discharge: 07/23/24 Primary care physician: Bandar Moore MD Consults: 07/20/24 19:58 Consult to Urology Routine Consulting Provider: [facility] [place] [facility] Reason for consultation: Obstructive renal stone, UTI Has provider been notified: Yes DS: Diagnosis Discharge Diagnosis (1) UTI (urinary tract infection): Status: Acute DS: Summary Hospital Course Hospital Course: HPI: 53 years old man with past medical history significant for nephrolithiasis requiring stent placement, BPH and GERD on Flomax presents to the emergency department complaining of severe right-sided pelvic pain radiated to right flank associated with nausea and vomiting. He denied any significant urinary symptoms or bloody hearing. He denies fever or chills. He did not report any headache, dizziness or palpitations. He did not report any acute cardiopulmonary symptoms. He smokes marijuana occasionally. Denied illicit drug use or tobacco smoking. In the ED, he was found to have stable vital signs. Last vital signs are normal. Blood workup showed no leukocytosis. Hemoglobin and platelets are normal. CMP is normal. Urinalysis showed no evidence of UTI. There is 1+ proteinuria. Abdomen pelvis CT scan with IV contrast showed obstructing 7 mm calculus in the distal right ureter resulting in my hydroureteronephrosis and mild periureteral stranding, and enlarged prostate. ED tx: Ketorolac 15 mg IV, morphine 4 mg IV, Zofran 4 mg IV and TL, tamsulosin 0.4 mg p.o. prednisone 20 mg. Hospital course:53 y/o M came with right flank pain -found to have Obstructive renal calculi to the right distal ureter + mild hydroureteronephrosis and mild periureteral stranding associated with UTI-patient started on iv hydration, Pain control with morphine and Toradol as needed,IV antibiotic therapy, Flomax. patient seen by urology-07/22/24 and Procedure performed Monday with ureteroscopy laser lithotripsy and stent placement right side. urine culture negative. patient improved significantly , no pain ,tolerating diet. also has bph( enlarged prostate ): continue flomax , urinating better. plan: completed ceftin 500 mg po bid x5 day. follow up with urology . Assessment and plan coordination time spent 40 min. Time Attestation Total time managing care of this patient today: 40 mintues. Discharge Coordination Time (in mins): 40 min Quality: Safe Use of Opioids Does Pt have an Active Cancer Diagnosis on the Problem List?: No Quality: Stroke Does the patient have a stroke diagnosis?: No Physical Exam Vital Signs: Vital Signs: Last Vital Signs Temp 97.5 F 07/23/24 07:57 Pulse 57 07/23/24 07:57 Resp 18 07/23/24 07:57 BP 133/80 07/23/24 07:57 Pulse Ox 97 07/23/24 07:57 O2 Del Method Room Air 07/23/24 07:57 BMI result Body Mass Index 34.7 Appearance: Alert.? Oriented X3.? cvs: rrr, [id number] . res: clear to auscultation ,no rhonchii or wheezing abd: no rebound or guarding ,nt, bs present. Gu:no cva tenderness ext pulses present , no cyanosis . neuro: axo3 , nonfocal. DS: Data Data Completed and Pending Pending studies at discharge: Pending at discharge 07/22/24 19:22 Surgical [PTH] Routine Labs on day of discharge: Laboratory Results - last 24 hr 07/22/24 09:01 Sodium 142 Potassium 4.1 Chloride 112 H Carbon Dioxide 25 Anion Gap 9 L BUN 11 Creatinine 1.25 Estim Creat Clear Calc 88.8 Estimated GFR > 60 Random Glucose 102 Calcium 8.8 D Total Bilirubin 0.7 AST 31 ALT 26 Alkaline Phosphatase 73 Total Protein 6.1 L Albumin 3.4 L Imaging Chest x-ray: Radiologist's impression: ITS Impressions Abdomen/Pelvis CT 07/20/24 15:46 IMPRESSION: 1. Obstructing 7 mm calculus in the distal right ureter resulting in mild hydroureteronephrosis and mild periureteral stranding. 2. A few nonobstructing renal calculi in the left kidney, the largest of which is a 3 mm stone in the lower pole of the left kidney. 3. Stable left adrenal adenoma. 4. Mild splenomegaly. 5. Markedly enlarged prostate measures 7.3 cm in transverse. Fleischner guidelines were followed. Electronically signed by: Nadira Porter MD 07/20/2024 04:27 PM EDT Discharge Plan Discharge Anticipated Discharge Date/Time: 07/22/24 19:25 Patient Disposition: Home, Self-Care Discharge Diagnosis: Distal right ureteric stone with hydroureteronephrosis Referrals: Titus Rajan MD [Physician] - 1 Week Bandar Moore MD [Primary Care Provider] - None Discharge Medications: New phenazopyridine [Pyridium] 100 mg tablet 100 mg PO TID PRN (Reason: Spasm) 4 Days Qty: 12 0RF naproxen 500 mg tablet 500 mg PO BID PRN (Reason: pain) 7 Days Qty: 14 0RF oxycodone 5 mg tablet 5 mg PO Q8H PRN (Reason: pain) 3 Days Qty: 8 0RF Rx Instructions: Partial Fill upon patient request. cefuroxime axetil 500 mg tablet 500 mg PO Q12H Qty: 10 0RF Continued tamsulosin 0.4 mg capsule 0.4 mg PO DAILY multivitamin Tablet 1 tab PO DAILY omeprazole 20 mg Capsule,Delayed Release(Dr/Ec) 20 mg PO DAILY@0630 Discharge Orders: Discharge Order (Routine); Ordered 07/23/24 Ordered By: Monisha Moran Diet: Advance to usual diet Activity on Discharge: As tolerated Stand Alone Forms: Patient Portal Discharge page Print Language: Kazakh Care Plan Goals: Stones Health Concerns: Stones Plan of Treatment: Stones Assessment: Stones Patient Instructions: Cefuroxime (By mouth), Ureteroscopy (DC)
--- NOTE | 2024-07-23 09:09 | MHC.CM.PN ---
pt dcd home self care
--- NOTE | 2024-07-23 11:02 | HO.POSTANES ---
Post Anesthesia Evaluation Post Anesthesia Evaluation Date of Service: 07/22/24 Vital Signs: Vital Signs Temp Pulse Resp BP Pulse Ox O2 Del Method 07/23/24 07:57 97.5 F 57 18 133/80 97 Room Air 07/23/24 03:42 96.8 F 64 17 120/70 96 Room Air 07/22/24 23:33 98.1 F 61 16 128/76 97 Room Air Anesthesia: General Mental Status: Awake Pain Control: Satisfactory Nausea/Vomiting: None Hydration: Adequate Anesthesia-Related Issues: No Anes. Related Issues
--- NOTE | 2024-07-25 15:58 | W.PM.OPN ---
Operative Note Operative Note Date of Service: 07/22/24 Narrative: PreOperative Diagnosis: Distal right ureteric stone Post Operative Diagnosis: Distal right ureteric stone Procedure: - cystoscopy, right retrograde - right dilatation of ureteric orifice under fluoroscopy - right ureteroscopy, laser lithotripsy, stone basketing - right stent placement Surgeon: Dr Titus Rajan Anesthesia: General Indications for procedure: Admission through emergency room with 6 mm distal right ureteric stone in hydroureteronephrosis Procedure: After informed consent was verified the patient was brought to the operating room and placed in a supine position. Anesthesia was administered per protocol. The patient was placed in a modified dorsal lithotomy position and prepped and draped in a sterile fashion. Safety pause time-out and side of surgery were confirmed. Images were available for review. Antibiotic administration confirmed. A 22 Indonesian cystoscope was inserted per urethra. The urethra was without aabnormality. The bladder was normal in its entirety. Both ureteric orifices were seen in normal position. The ureteric orifice was cannulated and a retrograde examination was performed. Filling defects seen in distal right ureter with proximal hydroureteronephrosis . A Sensor guidewire was placed up to the level of the renal pelvis under fluoroscopy. The rigid cystoscope was removed. A Maykel dilator was placed over the Sensor guidewire and used to dilate the ureteric orifice under fluoroscopy. The dilator was removed. The semi rigid ureteral scope was placed alongside the Sensor guidewire. Stone was encountered. Using a 365 micro holmium laser fiber the stone was broken into small pieces using a combination of hammer and dusting techiques. Stone fragments were removed from the ureter using a 2.4 Indonesian ZeroTip basket basket. Once the fragments were removed a decision was made to place a ureteric stent. Based on the height of the patient a 6 Fr x 26 stent was used. The string was removed from the stent prior to placement The rigid cystoscope was backloaded over the wire and advanced into the bladder. A 6 Indonesian by 26 cm double-J stent was placed into the renal pelvis and bladder under a combination of fluoroscopy and direct visualization. The bladder was emptied. The patient tolerated the procedure well and was extubated in the operating room. They were transferred in stable condition to the recovery area. Pathology: stones Drains: Double J stent as described above
[2024-07-27 18:59] LABS: Stone Source RIGHT URETERAL STONE
== END 2024-07-23 11:44 | disposition home or self-care (01) | DRG 446 ==
LOC: HO.ED 19:08 → HO.EDOVER 20:00 → HO.S3 07-21 19:35
PROVIDERS: Physician Assistant Medical; Urology; Admitting Provider Internal Medicine; Emergency Provider Emergency Medicine; PCP Internal Medicine; Visit Provider Internal Medicine
PROC: 0TC68ZZ Extirpation of Matter from Right Ureter, Via Natural or Artificial Opening Endoscopic (ICD-10-PCS; principal; 2024-07-22 18:30)
DX: N13.6 Pyonephrosis (principal); K21.9 Gastro-esophageal reflux disease without esophagitis; N40.0 Benign prostatic hyperplasia without lower urinary tract symptoms; Z87.442 Personal history of urinary calculi; Z79.899 Other long term (current) drug therapy
CPT/HCPCS: 36415; 74176; 80048; 80053; 80076; 81001; 82365; 83735; 85025; 87086; 99285; C1758; C1769; C2617; J0696; J1885; J1956; J2003; J2250; J2270; J2405; J2704; J3010; Q9967

== ENCOUNTER → 2024-07-20 19:54 | Outpatient (BNV) | payer OTHER, SELFPAY | PROVIDERS: Admitting Provider Internal Medicine; Emergency Provider Emergency Medicine; PCP Internal Medicine; Visit Provider Internal Medicine | DX: N30.00 Acute cystitis without hematuria (principal) | CPT/HCPCS: 99223; 99231; 99232; 99239 ==

== ENCOUNTER → 2024-07-20 19:54 | Outpatient (BNV) | payer OTHER, SELFPAY | PROVIDERS: Admitting Provider Internal Medicine; Emergency Provider Emergency Medicine; PCP Internal Medicine; Visit Provider Urology | DX: N20.1 Calculus of ureter (principal) | CPT/HCPCS: 52356; 74420; 99222 ==

== ENCOUNTER 2024-07-27 13:55 | Emergency (ER) | payer OTHER, SELFPAY ==
[2024-07-27 14:22] VITALS: BP 147/79; PULSE 66; RESP 18; TEMP 36.8; O2SAT 98; BMI 33.9
--- NOTE | 2024-07-27 14:22 | ED.ABDPAIN ---
HPI - Abdominal Pain General Chief Complaint: Urogenital-Male Stated Complaint: wound check bleeding from surgery 07/22 Related Data Home Medications ?Medication ?Instructions ?Recorded ?Confirmed multivitamin 1 tab PO DAILY 07/21/24 07/21/24 omeprazole 20 mg capsule,delayed 20 mg PO DAILY@0630 07/21/24 07/21/24 release tamsulosin 0.4 mg capsule 0.4 mg PO DAILY 07/21/24 07/21/24 Previous Rx's ?Medication ?Instructions ?Recorded naproxen 500 mg tablet 500 mg PO BID PRN pain 7 days #14 07/22/24 tabs oxycodone 5 mg tablet 5 mg PO Q8H PRN pain 3 days #8 tabs 07/22/24 phenazopyridine 100 mg tablet 100 mg PO TID PRN Spasm 4 days #12 07/22/24 (Pyridium) tabs cefuroxime axetil 500 mg tablet 500 mg PO Q12H #10 tabs 07/23/24 Allergies Allergy/AdvReac Type Severity Reaction Status Date / Time No Known Allergies Allergy Verified 07/27/24 14:25 [No Known Allergies*] [facility] Past Medical History Medical History Kidney stones Liver nodule Lung nodule Ptosis Thyroid nodule Surgical History History of cholecystectomy Social History Social History Household Members: Significant Other and None Housing: Apartment Patient Tobacco Use Status: Never used Tobacco Substance Use Type: Marijuana Advance Directives: No Advance Directives Information Provided: No service: No Physical Exam ED Vital Signs: Vital Signs - 24 hr 07/27/24 14:22 Temperature 98.2 F Pulse Rate 66 Respiratory Rate 18 Blood Pressure 147/79 H Pulse Oximetry 98 Oxygen Delivery Method Room Air BMI result Body Mass Index 33.9 Course Course Course Narrative: This is an RME performed by Lulu Sarabia CNP: Additional HPI, ROS, PE not included below will be deferred to primary provider. Patient is a 53 year old male presents emergency department for evaluation, on 07/22/2024 underwent right-sided lithotripsy and stent placement with Dr. Rajan. Reports approximately 45 minutes prior to arrival went to the bathroom and was urinating copious amounts of bright red blood. Feels as though he has active urethral bleeding sitting in triage. Reports at home that he placed a gauze over his penis. Not noted to have active bleeding onto his trousers. Admits that since procedure he has had some dark-colored urine but this is a significant change. Denies associated pain, no flank pain. No fevers or chills. 14:40 - patient became quite upset, stating I need to be brought back into a room immediately , he abruptly left the triage doorway and yelled he is leaving and going to [facility] . Did not allow myself to nor nursing staff to speak, patient previously advised during triage awaiting available bed, planning to obtain serum labs and urinalysis from waiting room. Discharge Plan Discharge Clinical Impression: Hematuria Patient Disposition: Left W/O Completing Treatment Prescriptions: No Action tamsulosin 0.4 mg capsule 0.4 mg PO DAILY multivitamin Tablet 1 tab PO DAILY omeprazole 20 mg Capsule,Delayed Release(Dr/Ec) 20 mg PO DAILY@0630 phenazopyridine [Pyridium] 100 mg tablet 100 mg PO TID PRN (Reason: Spasm) 4 Days Qty: 12 0RF naproxen 500 mg tablet 500 mg PO BID PRN (Reason: pain) 7 Days Qty: 14 0RF oxycodone 5 mg tablet 5 mg PO Q8H PRN (Reason: pain) 3 Days Qty: 8 0RF Rx Instructions: Partial Fill upon patient request. cefuroxime axetil 500 mg tablet 500 mg PO Q12H Qty: 10 0RF Discharge Date/Time: 07/27/24 14:42
--- NOTE | 2024-07-27 14:39 | PC.NURSE ---
pt informed registration that he was going to leave and go to [facility]
== END 2024-07-27 14:42 | disposition left against medical advice (07) ==
PROVIDERS: Emergency Provider Emergency Medicine; PCP Internal Medicine
DX: R31.9 Hematuria, unspecified (principal)
CPT/HCPCS: 99281

== ENCOUNTER 2024-07-30 12:53 | Outpatient (AMB) | payer OTHER, SELFPAY ==
--- NOTE | 2024-07-30 12:54 | MHC.OFFVIS ---
Intake Visit Reasons: cysto stent removal Intake Note: Patient is Present for Cystoscopy Urology Med: Tamsulosin Antibiotic Allergy: None Blood Thinner: None URO- G Disposable Cystoscope lot: [id number] exp:10/19/2026 Veneer Sheet Repairer Required: No Accompanied by: Self / Same As Patient Allergies No Known Allergies [No Known Allergies*] Allergy (Verified 07/30/24 12:59) HPI Comments Details: Leonard is a pleasant male. He is a patient of Dr. Moore. He is seen for the following urologic conditions - nephrolithiasis - borderline PSA Here for cysto stent removal Nephrolithiasis Recurrent stone former 08/11 Present through emergency department with severe right-sided pelvic pain radiating to right flank WBC 10.6, calcium 9.4, creatinine 0.9 Imaging - 7 mm calculus in the distal right ureter resulting in mild hydroureteronephrosis and mild periureteral stranding Intervention - 08/11 ureteroscopy with laser lithotripsy Stone composition - Calcium Oxalate Dihydrate (Weddellite) 30%Calcium Oxalate Monohydrate (Whewellite) 70% 2 month follow-up renal ultrasound [facility] Medical History Liver nodule Ptosis Thyroid nodule Lung nodule Kidney stones Surgical History History of cholecystectomy Social History Household Members: Significant Other and None Housing: Apartment Patient Tobacco Use Status: Never used Tobacco Substance Use Type: Marijuana service: No Review of Systems Const Denies chills and Denies fever(s) Card Reports no additional complaints and Denies syncope Resp Denies cough GI Denies abdominal pain and Denies heartburn Reports as per HPI and Denies change in libido Neuro Denies syncope Psych Denies change in libido Endo Denies change in libido Physical Exam Const General: cooperative, healthy appearing, comfortable and no acute distress Orientation/consciousness: patient oriented x3 HEENT Face and sinus: Yes normal facial exam Mouth: moist mucous membranes Neck Neck: Yes normal visual inspection, Yes full ROM and Yes trachea midline Chest Chest palpation & inspection: normal inspection of the chest Resp Effort & Inspection: normal respiratory effort, able to speak in complete sentences and no respiratory distress GI Inspection: Yes normal to inspection Back/Spine/Pelvis Cervical Spine: normal cervical lordosis Thoracic/Lumbar Spine: thoracic and lumbar spine normal to inspection Skin General skin exam: no rashes or lesions noted Neuro General: patient oriented x3, gait normal, tone normal and moves all extremities Extrem General: Yes normal to inspection and Yes capillary refill normal Office Procedures Cystoscopy Consent Discussed risk and benefit or proposed procedure with the patient. Information consent for procedure given to the patient. Discussed technical aspects, risks, benefits and alternatives in full. Addressed all of the patient's questions and concerns regarding the procedure. The patient demonstrated knowledge and understanding. They wish to proceed with this procedure. Preparation The patient was prepped in the usual manner. A solution design engineer was present and in the room. Genitalia was prepped with betadine solution in a sterile manner. Lidocaine Jelly 2% was placed into the urethra and 16Fr flexible Olympus cystoscope was inserted into the meatus after adequate lubrication. DISPOSABLE SCOPE URO-G FLEXIBLE SCOPE Procedure code (CPT) selection complete Office Meds lidocaine HCl 2 % mucosal jelly in applicator Performing Provider: Titus Rajan MD Performing Location: [facility] Administered by: ALFREDA Dockery on 07/30/24 13:08 Dose Route Admin Location Dispensed Lot Number Expiration Date NDC Learning And Development Manager 10 mL intra-urethral 10 mL Comments: Administered by Dr Titus Rajan MD nitrofurantoin monohydrate/macrocrystals 100 mg capsule Performing Provider: Titus Rajan MD Performing Location: [facility] Administered by: ALFREDA Dockery on 07/30/24 13:08 Dose Route Admin Location Dispensed Lot Number Expiration Date NDC Learning And Development Manager 100 mg PO 1 cap Comments: Administered by Dr Titus Rajan MD naproxen 500 mg tablet Performing Provider: Titus Rajan MD Performing Location: [facility] Administered by: ALFREDA Dockery on 07/30/24 13:08 Dose Route Admin Location Dispensed Lot Number Expiration Date NDC Learning And Development Manager 500 mg PO 1 tab Comments: Administered by Dr Titus Rajan MD Results AMB Urinalysis, Automated UA Leukoctes 500 Lester/uL Last Edit by ALFREDA Dockery on 07/30/24 13:09 UA Nitrite Positive Last Edit by NICOLAS DockeryA on 07/30/24 13:09 UA Urobilinogen 1 mg/dL Last Edit by Melisa Arora, RMA on 07/30/24 13:09 UA Protein 100 mg/dL Last Edit by Melisa Arora, RMA on 07/30/24 13:09 UA pH 6.0 Last Edit by Melisa Arora, RMA on 07/30/24 13:09 UA Blood 200 Shlomo/uL Last Edit by Melisa Arora, RMA on 07/30/24 13:09 UA Specific Christine 1.020 Last Edit by Melisa Arora, RMA on 07/30/24 13:09 UA Ketone Negative Last Edit by Melisa Arora, A on 07/30/24 13:09 UA Bilirubin 0 mg/dL Last Edit by Melisa Arora, RMA on 07/30/24 13:09 UA Glucose 0 mg/dL Last Edit by Melisa Arora, A on 07/30/24 13:09 Results Reviewed Results Reviewed: Laboratory Last Values Urine pH (Auto) 6.0 07/30/24 12:59 Specific Christine (Auto) 1.020 07/30/24 12:59 Urine Protein (Auto) 100 mg/dL 07/30/24 12:59 Glucose (UA)(Auto) 0 mg/dL 07/30/24 12:59 Urine Ketones (Auto) Negative 07/30/24 12:59 Urine Blood (Auto) 200 Shlomo/uL 07/30/24 12:59 Urine Nitrite (Auto) Positive 07/30/24 12:59 Urine Bilirubin (Auto) 0 mg/dL 07/30/24 12:59 Urine Urobilinogen (Auto) 1 mg/dL 07/30/24 12:59 Leukocyte Esterase (Auto) 500 Lester/uL 07/30/24 12:59 Assessment & Plan Assessment & Plan (1) Kidney stones: Code(s): N20.0 - Calculus of kidney Category: Medical Plan Two month follow-up renal ultrasound [facility] Orders: Orders AMB Cystoscopy Today N20.1 - Calculus of ureter US renal BI 2 Months N20.1 - Calculus of ureter URORISK Today N20.1 - Calculus of ureter AMB Urinalysis Automated Today Z13.9 - Encounter for screening, unspecified Medications: Discontinued naproxen Discontinued Reason: Patient Completed Course 500 mg PO BID 7 days PRN 14 tabs 0RF pain phenazopyridine (Pyridium) Discontinued Reason: Patient Completed Course 100 mg PO TID 4 days PRN 12 tabs 0RF Spasm Patient Instructions: Imaging studies, laboratory and physical exam results were discussed and reviewed in detail. No major barriers to patient understanding were identified. An opportunity to ask questions regarding the treatment plan was provided. All questions were answered. The patient expressed understanding and agreement with the above treatment plan. The patient is aware they should contact our office by phone for worsening of their current condition or the appearance of new urologic symptoms. Compliance is encouraged with any medications and followup testing that is ordered. It is a privilege to participate in the urologic care of your patient. If you have any questions or concerns regarding treatment for the above conditions, or other urologic issues, please do not hesitate to contact me. The office telephone contact is [phone]. This note is constructed using voice recognition software. While every effort has been made to ensure accuracy continuity manager errors may have been included. Yours sincerely, Dr Titus Rajan MD, [facility] - Urology Providers of Expert, Compassionate Care for the Genitourinary System Coding Diagnoses Kidney stones N20.0
== END 2024-07-30 14:01 | disposition home or self-care (01) ==
PROVIDERS: PCP Internal Medicine; Visit Provider Urology
DX: N20.1 Calculus of ureter (principal); Z13.9 Encounter for screening, unspecified

== ENCOUNTER → 2024-07-30 12:53 | Outpatient (BNVA) | payer OTHER, SELFPAY | PROVIDERS: PCP Internal Medicine; Visit Provider Urology | DX: Z48.816 Encounter for surgical aftercare following surgery on the genitourinary system (principal) | CPT/HCPCS: 52310; 81003 ==

== ENCOUNTER 2024-10-30 16:08 | Outpatient (REF) | payer OTHER, SELFPAY ==
--- NOTE | ~2024-10-30 | US_ITS ---
CLINICAL HISTORY: N20.1 - Calculus of ureter US Renal Comparison: US/OT - ABDOMEN ULTRASOUND [id number] - 07/03/16 08:08 EDT Findings: Right kidney normal size and echotexture, 12.9 cm length. Left kidney normal size and echotexture, 12.8 cm length. Flow present at the bilateral kidneys on color Doppler imaging. No hydronephrosis. Nonspecific 3 mm echogenic focus identified of the right kidney without significant posterior acoustic features. A 3 mm echogenic structure is also identified of the left kidney which appears to demonstrate posterior acoustic shadowing, suggesting a calcification. IMPRESSION: No hydronephrosis. Nonspecific 3 mm echogenic focus identified of the right kidney. A nonobstructing right renal calculus is not excluded. A 3 mm echogenic focus with posterior acoustic shadowing is present at the left kidney, suggesting a calcification. This may represent a nonobstructing left renal calculus. This document has been electronically signed by: Moshe Monte MD on 10/31/2024 04:58:26
--- OUTSIDE RECORDS SUMMARY | 2024-10-30 16:39 | XMS_ITS | Data Portability ---
Author Organization [facility] Address [address] [place] [address] Assessment Encounter Date Assessment Date Assessment LastModified by Organization Details LastModified Time 10/07/2022 10/07/2022 [id number] [place] [id number] (SHIPPING CLERK/ADMIN) MDM MODERATE MUST MEET 2 OUT OF 3 ELEMENTS: PROBLEMS, DATA OR RISK ELEMENT 1: PROBLEMS ADDRESSED 1 OR MORE CHRONIC ILLNESS WITH EXACERBATION OR 2 OR MORE STABLE CHRONIC ILLNESSES OR 1 UNDIAGNOSED NEW PROBLEM OR 1 ACUTE ILLNESS W/SYMPTOMS OR 1 ACUTE COMPLICATED INJURY ELEMENT 2: DATA MUST MEET 1 OF 3 CATEGORIES CATEGORY 1: REVIEW OF PRIOR EXTERNAL NOTES, REVIEW OF RESULTS, ORDERING OF EACH TEST, ASSESSMENT REQUIRING INDEPENDENT HISTORIAN OR CATEGORY 2: INDEPENDENT INTERPRETATION OF TESTS BY ANOTHER PHYSICIAN OR SPECIALIST OR CATEGORY 3: DISCUSSION OF MGT OR TEST INTERPRETATION W/EXTERNAL PHYSICIAN OR SPECIALIST ELEMENT 3: RISK RISK OF COMPLICATIONS AND/OR MORBIDITY OR MORTALITY OF PATIENT MANAGEMENT PROVIDER MUST THOROUGHLY DOCUMENT EACH ELEMENT THAT IS COVERED Not available 10/07/2022 16:46:30 08/21/2024 08/21/2024 [id number] [place] [id number] (SHIPPING CLERK/ADMIN) : MDM LOW MUST MEET 2 OF 3 ELEMENTS: PROBLEMS, DATA OR RISK ELEMENT 1: PROBLEMS ADDRESSED (LOW): 2 OR MORE SELF-LIMITED OR MINOR PROBLEMS OR 1 STABLE CHRONIC ILLNESS OR 1 ACUTE UNCOMPLICATED ILLNESS OR INJURY ELEMENT 2: DATA TO BE REVISED AND ANALYZED (LOW) MUST MEET 1 OF 2 CATEGORIES: CATEGORY 1. REVIEW OF PRIOR EXTERNAL NOTES/RESULTS, ORDERING OF TEST(S) CATEGORY 2. ASSESSMENT REQUIRING INDEPENDENT HISTORIAN(S) INCLUDE WHO THE HISTORIAN IS AND RELATION TO PT AND WHY PT IS UNABLE TO GIVE COMPLETE HISTORY ELEMENT 3: RISK (LOW) RISK OF COMPLICATIONS AND/OR MORBIDITY OR MORTALITY OF PATIENT MANAGEMENT PROVIDER MUST THOROUGHLY DOCUMENT ALL OF THE ELEMENTS COVERED Not available 08/27/2024 21:57:46 Plan of Treatment Reminders Order Date Submit Date Provider Last Modified By Organization Details Last Modified Time Details Appointments None recorded. Lab CMP, serum or plasma 2023 024 [facility], [address] [place] [address], [address], 4 11:14:43 PSA, serum or plasma 2023 024 [facility], [address] [place] [address], [address], 4 12:48:53 lipid panel, blood 2023 024 [facility], [address] [place] [address], [address], 4 12:48:53 CBC w/ auto diff 2023 024 [facility], [address] [place] [address], [address], 4 12:48:53 Referral None recorded. Procedures None recorded. Surgeries None recorded. Imaging None recorded. Medication Orders ketoconazo le 2 % topical cream [address] [id number], [address] [place], [place], [id number], 4 11:36:51 Bactrim DS 800 mg-160 mg tablet [address] [facility]37164, [address] [place], [place], [id number], 4 11:37:22 betamethas one dipropiona te 0.05 % topical cream [address] [facility]75237, [address] [place], [place], [id number], 4 11:36:35 tamsulosin 0.4 mg capsule [address] [facility]24565, [address] [place], [place], [id number], 12:32:32 fluconazol e 200 mg tablet [address] [facility]45282, [address] [place], [place], [id number], 12:32:09 Patient TargetsNo targets recorded. Patient Instructions Encounter Date Encounter Id Patient Instructions Last Modified By Organization Details Last Modified Time 10/07/2022 [id number] [facility]: [email or web address] Not available 10/07/2022 16:47:04 04/19/2024 [id number] tinea versicolor : care instructions [email or web address] Not available 04/19/2024 12:32:04 08/21/2024 [id number] learning about mood disorders Not available 08/27/2024 21:59:56 ringworm: [email or web address] Not available 08/27/2024 21:59:56 Reason for Referral None Reported. Results Created Date Observation Date Name Description Value Unit Range Abnormal Flag Note LastModifiedBy Organization Detail LastModifiedTime 07/20/20 24 07/20/2024 CT, abdom en + pelvi s, w/o contr ast No observ ation record ed. [facility] (Medical Records) [address] [place] [address], [address], 07/20/2024 18:35:36 10/16/19 25 07/22/2024 fluor oscop y (PROC ) No observ ation record ed. [email or web address] [facility] (Medical Records) [address] [place] [address], [address], 10/16/2024 10:37:47 Result Notes None recorded. Problems Name Problem SNOMED Code Status Onset Date Resolution Date Notes Provider Name and Address Organization Details Recorded Time Alcohol abuse 31714853 Completed 201809/30/2020 Bandar Moore DO [address] [place], [address], [facility] 1 10:47:47 Cocaine abuse 75813803 Completed 201809/30/2020 Bandar Moore, DO [address] [place], [address], [facility] 3 16:46:00 Gout 23077419 Active 2020 Not Available [facility] 2 15:59:35 Secondar y restless legs syndrome 832669828 Active 2020 Not Available [facility] 2 15:59:35 Pain of left hip joint 8120388092 53556 Active 2020 Not Available [facility] 2 15:59:35 Increase d blood pressure 59832600 Active 2020 Not Available [facility] 2 15:59:35 Fracture of tibial plateau 991817183 Active 2021 Not Available [facility] 2 15:59:35 Urinary urgency due to benign prostati c hypertro phy 6653318914 85417 Active 2021 Not Available [facility] 2 15:59:35 Gouty arthropa thy 323465408 Active 2021 Not Available [facility] 2 15:59:35 Lumbago with sciatica 708704358 Active 2021 Not Available [facility] 2 15:59:35 Lumbago with sciatica 959704416 Active 2021 Not Available [facility] 2 15:59:35 Anxiety 23322305 Active 2021 Bandar Moore, DO [address] [place], [address], [facility] 2 16:24:00 Drug dependen ce 367643900 Active 2022 Bandar Moore, DO [address] [place], [address], [facility] 3 16:45:54 Compartm ent syndrome of lower limb due to traumati c injury 381721549 Active 2022 Bandar Moore, [address] [place] [address], [address], [facility] 3 16:45:54 Cocaine abuse 93919473 Active 2022 Bandar Moore DO [address] [place] [address], [address], [facility] 3 16:46:00 Dermatop hytosis 05617841 Completed 202208/27/2024 Removal Reason: resolv Bandar Moore, [address] [place] [address], [address], [facility] 4 21:58:55 Plantar fasciiti s of right foot 6332961067 8599436 Active 2022 Bandar Moore DO [address] [place] [address], [address], [facility] 3 16:49:24 Abscess of skin and/or subcutan eous tissue 98393536 Active 2022 SHARITA SOLARES [address] [place] [address], [address], [facility] 3 11:43:33 Atopic dermatit is 07069854 Active 2022 SHARITA SOLARES [address] [place] [address], [address], [facility] 3 15:00:50 Cluster headache 636477083 Active 2022 Bandar Moore DO [address] [place] [address], [address], [facility] 3 16:02:43 Depressi ve disorder 82709914 Active 2022 Bandar Moore DO [address] [place] [address], [address], [facility] 3 21:41:18 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 Procedures Surgical History Date Name Laterality Status Provider Name and Address Organization Details Recorded Time 03/20/2023 I&D completed SHARITA SOLARES [address] [facility], [place], [address], [facility] 03/20/2023 11:55:23 Imaging Results Imaging Date Name Status LastModified by Organiz ation Details LastModified Time 07/20/2024 CT, abdomen + pelvis, w/o contrast completed [facility] (Medical Records) [address] [place], [address], 07/20/2024 18:35:36 07/22/2024 fluoroscopy (PROC) completed [email or web address] [facility] (Medical Records) [address] [place], [address], 10/16/2024 10:37:47 Procedure Notes None recorded. Medical Equipment None Reported. Allergies No known drug allergies Medications Name Sig Start Date Stop Date Status Note LastModified by Organization Details LastModified Time pramipexole 1 mg tablet TAKE 1 TABLET BY MOUTH EVERY DAY AT BEDTIME 08/24 completed Not Available Not Available Not Available prednisone 10 mg tablet Take 4 tablets every day by oral route. 08/24 completed Not Available Not Available Not Available cefuroxime axetil 250 mg tablet 01/17 completed Not Available Not Available Not Available sumatriptan 100 mg tablet Take 1 tablet by oral route as needed for 1 day. active Not Available Not Available No t Available hydrocodone 5 mg-acetamin ophen 325 mg tablet TAKE 1 TABLET BY MOUTH EVERY 6 HOURS FOR 7 DAYS 05/28 completed Not Available Not Available Not Available fluconazole 200 mg tablet TAKE 1 TABLET BY MOUTH EVERY DAY FOR 14 DAYS active Not Available Not Available No t Available prednisone 20 mg tablet Take 3 tabs X3 days, 2 Tabs X3 days , 1 Tab X3 days 04/19 completed Not Available Not Available Not Available clobetasol 0.05 % topical cream APPLY A THIN LAYER TO THE AFFECTED AREA(S) BY TOPICAL ROUTE 2 TIMES PER DAY 03/20 completed Not Available Not Available Not Available sulfamethox azole 800 mg-trimetho prim 160 mg tablet TAKE 1 TABLET BY MOUTH EVERY 12 HOURS FOR 10 DAYS. DRINK AT LEAST 6 GLASSES OF WATER WHILE TAKING. AVOID DIRECT SUNLIGHT. 04/19 completed Not Available Not Available Not Available tramadol 50 mg tablet TAKE 1 TABLET BY MOUTH EVERY 6 HOURS FOR 7 DAYS 08/24 completed Not Available Not Available Not Available verapamil ER 180 mg 24 hr capsule,ext ended release take 1 capsule by mouth once daily 06/18 completed Not Available Not Available Not Available chlordiazep oxide 25 mg capsule 08/28 completed Not Available Not Available Not Available aspirin 325 mg tablet,ovi yed release TAKE 1 TABLET BY MOUTH EVERY DAY 08/24 completed Not Available Not Available Not Available tamsulosin 0.4 mg capsule TAKE 1 CAPSULE BY MOUTH EVERY DAY 2024 active Not Available Not Available Not Avai lable phenazopyri dine 100 mg tablet TAKE 1 TABLET BY MOUTH THREE TIMES DAILY NEEDED FOR SPASMS FOR 4 DAYS active Not Available Not Available No t Available indomethaci n 25 mg capsule TAKE 1 CAPSULE BY MOUTH THREE TIMES DAILY WITH MEALS FOR 7 DAYS 08/24 completed Not Available Not Available Not Available indomethaci n 50 mg capsule TAKE 1 CAPSULE BY MOUTH THREE TIMES DAILY FOR 7 DAYS 05/28 completed Not Available Not Available Not Available betamethaso ne dipropionat e 0.05 % topical cream APPLY THIN LAYER TOPICALLY TO THE AFFECTED AREA EVERY DAY 04/19 completed Not Available Not Available Not Available omeprazole 20 mg capsule,del ayed release Take 1 capsule every day by oral route for 30 days. active Not Available Not Available No t Available codeine 10 mg-guaifene sin 100 mg/5 mL oral liquid Take 10 mL every 4 hours by oral route. 06/18 completed Not Available Not Available Not Available cefuroxime axetil 500 mg tablet TAKE 1 TABLET BY MOUTH EVERY 12 HOURS active Not Available Not Available No t Available ketoconazol e 2 % topical cream APPLY LIBERALLY TOPICALLY TO THE AFFECTED AREA EVERY DAY 04/19 completed Not Available Not Available Not Available naproxen 500 mg tablet TAKE 1 TABLET BY MOUTH TWICE DAILY FOR 7 DAYS NEEDED FOR PAIN active Not Available Not Available No t Available oxycodone 5 mg tablet TAKE 1 TABLET BY MOUTH EVERY 8 HOURS FOR 3 DAYS NEEDED FOR PAIN active Not Available Not Available No t Available duloxetine 30 mg capsule,del ayed release TAKE 1 CAPSULE BY MOUTH EVERY DAY active Not Available Not Available No t Available duloxetine 60 mg capsule,del ayed release TAKE 1 CAPSULE BY MOUTH EVERY DAY 04/19 completed Not Available Not Available Not Available Multivitami n 50 Plus daily active OTC Not Available Not Available No t Available oxycodone 10 mg tablet TAKE 1 TABLET BY MOUTH EVERY 4 HOURS FOR 5 DAYS 12/08 completed Not Available Not Available Not Available ClearLax 17 gram/dose oral powder MIX 17 GRAMS WITH WATER AND DRINK ONCE DAILY FOR 7 DAYS 08/24 completed Not Available Not Available Not Available Senexon-S 8.6 mg-50 mg tablet TAKE 2 TABLETS BY MOUTH EVERY DAY AT BEDTIME FOR 7 DAYS 08/24 completed Not Available Not Available Not Available Probiotic daily 04/19 completed OTC Not Available Not Available Not Available loratadine 10 mg capsule Take 1 capsule every day by oral route. 03/10 completed Not Available Not Available Not Available Aleve 220 mg capsule Take by oral route. 03/10 completed Not Available Not Available Not Available COVID-19 test specimen collection TEST DIRECTED TODAY 12/03 completed Not Available Not Available Not Available BinaxNOW COVID-19 Ag Self Test kit TEST DIRECTED TODAY 08/24 completed Not Available Not Available Not Available Vitals Date Recorded Body height Body mass index (BMI) Body weight Heart rate Oxygen saturation Oxygen saturation in Arterial blood by Pulse oximetry Systolic blood pressure Diastolic blood pressure Provider Name and Address Organization Details Last Updated DateTime 3 182.88 cm 37.5 kg/m2 371789. 29 g 78 /min 98 % 98 % 148 mm[Hg] 90 mm[Hg] Bandar Moore, DO [address] [place], [address] [place] [address] [facility] 3 16:27:10 Date Recorded Body height Oxygen saturation Oxygen saturation in Arterial blood by Pulse oximetry Heart rate Systolic blood pressure Diastolic blood pressure Provider Name and Address Organization Details Last Updated DateTime 3 182.88 cm 97 % 97 % 74 /min 140 mm[Hg] 84 mm[Hg] SHARITA SOLARES [address] [place], [address], [facility] 3 11:13:28 Date Recorded Body height Body mass index (BMI) Body weight Heart rate Oxygen saturation Oxygen saturation in Arterial blood by Pulse oximetry Systolic blood pressure Diastolic blood pressure Provider Name and Address Organization Details Last Updated DateTime 3 182.88 cm 37.4 kg/m2 553190. 49 g 74 /min 97 % 97 % 130 mm[Hg] 80 mm[Hg] Antonina Tian [facility] 3 14:53:30 Date Recorded Body height Body mass index (BMI) Body weight Heart rate Oxygen saturation Oxygen saturation in Arterial blood by Pulse oximetry Systolic blood pressure Diastolic blood pressure Provider Name and Address Organization Details Last Updated DateTime 4 182.88 cm 36.2 kg/m2 780205. 16 g 74 /min 98 % 98 % 122 mm[Hg] 74 mm[Hg] Lj Lopez [facility] 4 11:39:32 Social History Question Answer Notes LastModified by Organizat ion Details LastModified Time Tobacco Smoking Status Never Smoker Bandar Moore DO [address] [place], [address], [facility] 06/18/2019 14:09:35 What Was The Date Of Your Most Recent Tobacco Screening? 04/19/2024 [email or web address] Information not available 04/19/2024 Do You Or Have You Ever Used Any Other Forms Of Tobacco Or Nicotine? No Information not available 10/07/2022 Sex: Unknown Functional Status None recorded. Mental Status None recorded. Family History Nothing Reported. Medical History No medical history recorded. Immunizations Vaccine Type Date Status Note Provider Nam e and Address Organization Details Recorded Time COVID-19, mRNA, LNP-S, PF, 30 mcg/0.3 mL dose 09/04/2021 completed Not Available [facility] 2 15:59:35 COVID-19, mRNA, LNP-S, PF, 30 mcg/0.3 mL dose 01/06/2021 completed Not Available [facility] 2 15:59:35 COVID-19, mRNA, LNP-S, PF, 30 mcg/0.3 mL dose 01/27/2021 completed Not Available [facility] 2 15:59:35 Past Encounters Encounter ID Performer Location Encounter Start Date Encounter Closed Date Diagnosis/Indication Diagnosis SNOMED-CT Code Diagnosis ICD10 Code Diagnosis Note [id number] Kae De Oliveira NP, S [facility] [address] [facility],[place] [address] 01/17/2018 15:44:11 01/17/2018 17:03:43 Cough 51160547 R05 Acute bronchitis 5585895 2 J20.9 Excessive sweating 80625 005 R61 await CXR results [id number] Bandar Moore [facility] [address] [facility],[place] [address] 06/18/2019 14:04:51 06/18/2019 14:43:52 Alcohol abuse 28412876 F10.10 mvi will check lab will seek counselor call insur here will get him cont with AA and will add a little librium for him to use prn will rechk i one week [id number] Bandar Moore [facility] Internal [facility] [address] [facility],[place] [address] 06/24/2019 15:03:49 06/24/2019 16:22:43 Drug dependence 744339706 F19.20 doing great and is becoming better Eczema 69468786 L30.9 stable will cont the cream on a prn basis [id number] Bandar Moore [facility] Internal [facility] [address] [facility], [place] [address] 07/08/2019 15:52:00 07/08/2019 16:38:29 Alcohol abuse 66833518 F10.10 F10.11 mvi will check lab will seek counselor call insur here will get him cont with AA labwork pending Cocaine abuse 17376867 F 14.10 asymptomat ic is clean Multiple skin tags 77649 7009 L91.8 [id number] Bandar Moore [facility] [address] [facility] [address] [address] 08/28/2019 15:35:31 08/28/2019 16:14:01 Cocaine abuse 33051749 F14.10 asymptomat ic is clean Alcohol abuse 42663433 F 10.10 F10.11 mvi will check lab will seek counselor here will get him cont with AA labwork looked great. no liver damage - see labs Ptosis of eyelid 5804058 0 H02.409 Having daily ptosis Change in visual field, progressiv malu worse Eczema 37151669 L30.9 B/L LE Multiple skin tags 84926 7009 L91.8 B/l skin tags in axilla Still waiting to see derm Restless legs 50050119 G 25.81 Having many days/week Will treat and recheck on F/U [id number] Bandar Moore [facility] [address] [facility] [place] [address] 09/30/2020 08:15:12 09/30/2020 11:13:59 Strain of muscle of left groin region 2956384209 6992958 S76.012A severe groinn pull muscle strain long discussion re seriousnes s of this injury and its lingering effects strongly recc we have him undergo PT Gout 20053350 M10.9 long detailed discussion re etiology and progeressi on and occur how to avoid how to monitor and will need to treat immedialte ly if need discussion on medication discussion on lab work needed to monitor uric acid Diastasis recti 50536237 M62.08 told and discused in detail he will cont to lose wgt and this should help he understand s the cosmetic nature of this Restless legs 14289625 G 25.81 Having many days/week Will treat and recheck on F/U [id number] Bandar Moore [facility] [address] [facility] [place] [facility] [address] 11/09/2020 10:48:24 11/09/2020 11:26:47 Gout 60689797 M10.9 long detailed discussion re etiology and progressio n and occur how to avoid how to monitor and will need to treat immediatel y if need discussion on medication discussion on lab work needed to monitor uric acid Secondary restless legs syndrome 139101978 G25.81 doing well with the pramipexol e and is able to sleep well Increased blood pressure 12045606 R03.0 he will lose weight and we will then go ahead and rechk in the spring [id number] Bandar Moore DO [facility] [address] [facility],[place] [address] 03/10/2021 09:58:23 03/10/2021 12:04:02 Secondary restless legs syndrome 182977994 G25.81 doing well with the pramipexol e at 1mg and is able to sleep well Gout 92950873 M10.9 long detailed discussion re etiology and progressio n and occur how to avoid how to monitor and will need to treat immediatel y if need discussion on medication discussion on lab work needed to monitor uric acid Drug dependence 49130280 9 F19.20 doing great and is becoming better Cocaine abuse 99983702 F 14.10 asymptomat ic is clean Increased blood pressure 60034008 R03.0 he will lose weight and we will then go ahead and rechk in the spring Onychomyco sis of toenails 889208078 B35.1 following a bad injury the left great toenail has worsened will tx conserv Pain of le ft hip joint 2074771464 59466 M25.552 [id number] Bandar Moore DO [facility] [address] [facility],[place] [address] 05/28/2021 13:46:36 05/28/2021 14:35:29 Abdominal pain 10789091 R10.9 since resolved ? if this was a retained stone from bile ducts??madison l watch and wait Increased blood pressure 16058183 R03.0 he will lose weight and we will then go ahead and rechk at home and has been doing well . Gout 20382002 M10.9 long detailed discussion re etiology and progressio n and occur how to avoid how to monitor and will need to treat immediatel y if need discussion on medication discussion on lab work needed to monitor uric acid note MUSHROOMS ARE THE PROBABLE CULPRIT HIGH IN PURINES [id number] Bandar Moore DO [facility] [address] [facility] [place] [address] 10/29/2021 11:48:40 10/29/2021 15:14:43 Increased blood pressure 56604718 R03.0 he will lose weight and we will then go ahead and rechk at home and has been doing well . Gout 27713329 M10.9 has been doing much better no episodes long detailed discussion re etiology and progressio n and occur how to avoid how to monitor and will need to treat immediatel y if need discussion on medication discussion on lab work needed to monitor uric acidno gut pains etcnote MUSHROOMS ARE THE PROBABLE CULPRIT HIGH IN PURINES Pain of le ft hip joint 0401997563 93374 M25.552 seems otbe bettter now and no major issuealso has a shoulder pain but has been doing impingemen t exercises Drug dependence 28403778 9 F19.20 doing great Cocaine abuse 92830650 F 14.10 asymptomat ic is clean Screening for malignant neoplasm of colon 976111780 Z12.11 [id number] SHARITA SOLARES [facility] [address] [facility],[place] [address] 12/08/2021 14:08:46 12/08/2021 16:39:50 Fracture of tibial plateau 952225199 S82.111D has fu with ortho on 12/15/21 Compartmen t syndrome of lower limb due to traumatic injury 084696114 T79.A21A the patient is using a walker and crutches Dysuria 65542510 R30.0 will send to [facility] for check Rib pain 429682648 R07.8 1 will monitor [id number] Bandar Moore DO [facility] [address] [facility], [place] [address] 05/20/2022 08:47:55 05/24/2022 09:52:04 Urinary urgency due to benign prostatic hypertrophy 0195168098 79089 R39.15 Gouty arthropathy 822884 008 M10.09 [id number] Bandar Moore [facility] Medicine [address] [facility],[place] [address] 08/24/2022 16:00:38 08/24/2022 16:42:18 Anxiety 89158633 F41.9 [id number] Bandar Moore [facility] Internal [facility] [address] [facility] [place] [facility] [address] 10/07/2022 16:14:14 10/10/2022 08:29:21 Anxiety 70469319 F41.9 feel excellent we will continue to have him stay on the duloxetine at 30mg and call if he needs to increase Drug dependence 97438181 9 F19.20 doing great he is sober over 2 years!!! Compartmen t syndrome of lower limb due to traumatic injury 100425598 T79.A21A doing great no issues now Screening for malignant neoplasm of colon 824585730 Z12.11 next visit Cocaine abuse 77761859 F 14.10 asymptomat ic is clean Dermatophytosis [id number] B35.9 Plantar fa sciitis of right foot [id number] M72.2 WILL GO TO [facility] TO GET INSERT [id number] SHARITA SOLARES [facility] Internal [facility] [address] [facility] [address],[place] [address] 03/20/2023 11:06:46 03/20/2023 11:57:31 Abscess of skin and/or subcutaneous tissue [id number] L02.212 will fu in a week to recheck the area [id number] SHARITA SOLARES [facility] [address] [facility] [address] [address] 03/29/2023 14:42:47 03/31/2023 08:09:23 Abscess of skin and/or subcutaneous tissue [id number] L02.212 reducingdo ing okay will recheck if needed Atopic dermatitis 956508 01 L20.89 will try a topical for patientOTC lotions [id number] Bandar Moore [facility] Internal Medicine [address] [facility] [address] [address] 04/19/2024 11:30:32 04/19/2024 14:29:31 Depression screening [id number] Z13.31 Active or passive immunization [id number] Z23 Adult heal th examination 884314491 Z00.01 doing very well and overall does have tinea versicolor Pityriasis versicolor 56 795052 B36.0 Urinary ur gency due to benign prostatic hypertrophy [id number] 53290 R39.15 [id number] Bandar Moore DO [facility] Internal Medicine [address],[place] [address] 08/21/2024 10:35:29 09/02/2024 12:00:13 Increased blood pressure 18804975 R03.0 he will lose weight and we will then go ahead and rechk at home and has been doing well . Dermatophytosis 61465080 B35.9 resolved Depressive disorder 8837 9007 F32.A struggling noted in past currently stable despite ankle injury Health Concerns Section Related Observation LastModified by Organization Detai ls LastModified Time None Recorded Concern Status LastModified by Organization Details LastModified Time None Recorded Advance Directives Directive None Recorded Payers Encounter Date Sequence Insurance Name Policy Number Policy Elmore Covered Member ID Elmore Member ID Guarantor Name 10/07/2022 1 [place] [facility] [place] [id number] Leonard W Brosseau [id number] Leonard Brosseau 03/20/2023 1 [place] [facility] [place] [place] [id number] Leonard W Brosseau [id number] Leonard Brosseau 03/29/2023 1 [place] [facility] [place] [place] [id number] Leonard W Brosseau [id number] Leonard Brosseau 04/19/2024 1 [place] [facility] Leonard Brosseau [id number] Leonard Brosseau 08/21/[address] [place] [address] ([facility] [id number] Leonard Brosseau [id number] Leonard Brosseau Notes Date Note Type Note Provider Name a nd Address Organization Details Recorded Time 3 text/html HERE FOR RECHK and is doing betterduloxetine is working wellstates he is tolerating the med and is actually feeling normal Bandar Moore DO [address] [place], [address], [facility], [place] [facility] 10/07/2022 16:50:03 3 text/html c/o lump on the left shoulder patient developed a lump on his left shoulderfluctuant at the base more medial I&D did not cause a significant amount of drainagesome purulent discharge in the beginninghollow pocket toward the subcutaneous layer but no drainagenot a solid mass like a lipoma would be patient agreed to start on abx and will fu next week for recheck and possible repeat I and D SHARITA SOLARES [address] [place], [address], [facility] 03/20/2023 11:55:36 3 text/html 10 day F/U abscess: reducing well on its ownwill [facility] he needs to be followed up with it atopic dermatitis: given topical to try to see if it helps with the rash and itching SHARITA SOLARES [address] [place], [address], [facility] 03/29/2023 15:09:59 4 text/html Annual WellnessReported bypatient.Diet and Nutrition:healthy diet Fracture Risk:no history of fractures; no recent explained fracture; no sudden unexplained fractures; no previous musculoskeletal injuries Physical Activity:exercises on a regular basis; recent increase in physical activity; good physical condition Additional Lifestyle Factors:no tobacco use; no alcohol intake; stopped drinking alcohol Depression Risk:never feels sad, empty, or tearful; no loss of interest in activities; no significant changes in weight; no sleep disturbances or insomnia; no agitation; no loss of energy; no feelings of worthlessness or guilt; no thoughts of suicide; no history of depression; no history of mood disorders Hearing:no loss of hearing Vision:no vision problems Bandar Moore DO [address] [place], [address], [facility], [place] [facility] 04/19/2024 12:34:58 4 text/html patient is evaluated via tele/video assessment per patient consentduring current pandemicrelates slipped and fell and broke his anklealso underwent a kidney stone removal having urinary frequency Bandar Moore, DO [address] [facility], [place], [address], [facility] 08/27/2024 22:00:14
== END 2024-10-30 16:09 | disposition home or self-care (01) ==
LOC: HO.US 16:08
PROVIDERS: PCP Internal Medicine; Visit Provider Urology
DX: N20.1 Calculus of ureter (principal)
CPT/HCPCS: 76775

== ENCOUNTER → 2024-10-30 16:09 | Outpatient (BNV) | payer OTHER, SELFPAY | PROVIDERS: PCP Internal Medicine; Visit Provider Radiology Diagnostic Radiology | DX: N20.2 Calculus of kidney with calculus of ureter (principal) | CPT/HCPCS: 76775 ==

== ENCOUNTER 2024-11-05 15:10 | Outpatient (AMB) | payer OTHER, SELFPAY ==
--- NOTE | 2024-11-05 15:15 | A.OFFVIS_ITS ---
Intake Visit Reasons: US Follow Up(No Litholink) Intake Note: Patient presents today for follow up on: hydronephrosis and ultrasound results Imaging Completed: 10/31/24 Urology Med: Tamsulosin Antibiotic Allergy: None Blood Thinner: None Database Analyst Required: No Accompanied by: Self / Same As Patient Allergies No Known Allergies [No Known Allergies*] Allergy (Verified 11/05/24 15:18) HPI Comments Details: Leonard is a pleasant male. He is a patient of Dr. Moore. He is seen for the following urologic conditions - nephrolithiasis - borderline PSA Three-month follow-up stone assessment Uro risk pending Discussed increased fluid intake Lemon water therapy Vitamin B6 Surveillance interval imaging Nephrolithiasis Recurrent stone former 08/11 Present through emergency department with severe right-sided pelvic pain radiating to right flank WBC 10.6, calcium 9.4, creatinine 0.9 Imaging - 7 mm calculus in the distal right ureter resulting in mild hydroureteronephrosis and mild periureteral stranding - 11/12 renal ultrasound nonspecific 3 mm bilateral calcification Intervention - 08/11 right ureteroscopy with laser lithotripsy Stone composition - Calcium Oxalate Dihydrate (Weddellite) 30%Calcium Oxalate Monohydrate (Whewellite) 70% PFSH Medical History (Updated 11/05/24 @ 15:45 by Titus Rajan MD) Kidney stones GERD (gastroesophageal reflux disease) Liver nodule Ptosis Thyroid nodule Lung nodule Surgical History History of cholecystectomy Social History Household Members: Significant Other and None Housing: Apartment Patient Tobacco Use Status: Never used Tobacco Substance Use Type: Marijuana service: No Review of Systems Const Denies chills and Denies fever(s) Card Reports no additional complaints and Denies syncope Resp Denies cough GI Denies abdominal pain and Denies heartburn Reports as per HPI and Denies change in libido Neuro Denies syncope Psych Denies change in libido Endo Denies change in libido Physical Exam Const General: cooperative, healthy appearing, comfortable and no acute distress Orientation/consciousness: patient oriented x3 HEENT Face and sinus: Yes normal facial exam Mouth: moist mucous membranes Neck Neck: Yes normal visual inspection, Yes full ROM and Yes trachea midline Chest Chest palpation & inspection: normal inspection of the chest Resp Effort & Inspection: normal respiratory effort, able to speak in complete sentences and no respiratory distress GI Inspection: Yes normal to inspection Back/Spine/Pelvis Cervical Spine: normal cervical lordosis Thoracic/Lumbar Spine: thoracic and lumbar spine normal to inspection Skin General skin exam: no rashes or lesions noted Neuro General: patient oriented x3, gait normal, tone normal and moves all extremities Extrem General: Yes normal to inspection and Yes capillary refill normal Assessment & Plan Assessment & Plan (1) Kidney stones: Code(s): N20.0 - Calculus of kidney Category: Medical Plan Six-month imaging Review Uro risk Orders: Orders US renal BI 6 Months N20.0 - Calculus of kidney Medications: Discontinued oxycodone Partial Fill upon patient request. Discontinued Reason: Patient no longer taking 5 mg PO Q8H 3 days PRN 8 tabs 0RF pain Patient Instructions: This note is constructed using voice recognition software. While every effort has been made to ensure accuracy ice skating teacher errors may have been included. Imaging studies, laboratory and physical exam results were discussed and reviewed in detail. No major barriers to patient understanding were identified. An opportunity to ask questions regarding the treatment plan was provided. All questions were answered. The patient expressed understanding and agreement with the above treatment plan. The patient is aware they should contact our office by phone for worsening of their current condition or the appearance of new urologic symptoms. Compliance is encouraged with any medications and followup testing that is ordered. It is a privilege to participate in the urologic care of your patient. If you have any questions or concerns regarding treatment for the above conditions, or other urologic issues, please do not hesitate to contact me. The office telephone contact is [phone]. Sincerely, Dr Titus Rajan MD, AJRRET [facility] - Urology Compassionate Specialist Care for the Genitourinary System Coding Level of Care Code Est Pt Level 3 (21478) Diagnoses Kidney stones N20.0
--- OUTSIDE RECORDS SUMMARY | 2024-11-05 16:06 | XMS_ITS | Data Portability ---
Author Organization [facility] Home Service Address [address] [place] [address] Assessment Encounter Date Assessment Date Assessment LastModified by Organization Details LastModified Time 10/07/2022 10/07/2022 [id number] [place] [id number] (QUALIFICATIONS EXAMINER) MDM MODERATE MUST MEET 2 OUT OF [...] COVERED Not available 10/07/2022 16:46:30 08/21/2024 08/21/2024 [id number] [place] [id number] (QUALIFICATIONS EXAMINER) : MDM LOW MUST MEET 2 OF [...] recorded. Lab CMP, serum or plasma 2023 [facility], [address] [place] [address], [address], 4 11:14:43 PSA, serum or plasma 2023 [facility], [address] [place] [address], [address], 4 12:48:53 lipid panel, blood 2023 [facility], [address] [place] [address], [address], 4 12:48:53 CBC w/ auto diff 2023 [facility], [address] [place] [address], [address], 12:48:53 Referral None recorded. Procedures None recorded. Surgeries None recorded. Imaging None recorded. Medication Orders tamsulosin 0.4 mg capsule 2023 [facility], [address], [place], [id number], 4 12:32:32 fluconazol e 200 mg tablet 2023 024 [facility] #[facility]8434, [address], [place], [id number], 4 12:32:09 betamethas one dipropiona te 0.05 % topical cream 2022 023 [email or web address] [facility] #46394, [address], [place], [id number], 4 11:36:35 Bactrim DS 800 mg-160 mg tablet [address] [facility]15196, [address], [place], [id number], 4 11:37:22 ketoconazo le 2 % topical cream [address] [facility]53152, [address], [place], [id number], 4 11:36:51 Patient TargetsNo targets recorded. Patient Instructions Encounter Date Encounter Id Patient Instructions Last Modified By Organization Details Last Modified Time 10/07/2022 [id number] ringworm: care instructions Not available 10/07/2022 16:47:04 04/19/2024 [id number] tinea versicolor : care instructions Not available 04/19/2024 12:32:04 08/21/2024 [id number] learning about mood disorders Not available 08/27/2024 21:59:56 ringworm: care instructions Not available 08/27/2024 21:59:56 Reason for Referral None Reported. Results Created Date Observation Date Name Description Value Unit Range Abnormal Flag Note LastModifiedBy Organization Detail LastModifiedTime 07/20/20 24 07/20/2024 CT, abdom en + pelvi s, w/o contr ast No observ ation record ed. [facility] (Medical Records) [address] [place] [id number], [id number], 07/20/2024 18:35:36 10/16/19 25 07/22/2024 fluor oscop y (PROC ) No observ ation record ed. [email or web address] (Medical Records) [address] [place] [address], [address], 10/16/2024 10:37:47 10/31/19 25 10/30/2024 US, abdom en No observ ation record ed. [email or web address] [facility] (Medical Records) [address] [place] [address], [id number], 11/01/2024 08:12:34 Result Notes None recorded. Problems Name Problem SNOMED Code Status Onset Date Resolution Date Notes Provider Name and Address Organization Details Recorded Time Alcohol abuse 76191123 Completed 201809/30/2020 Bandar Moore, DO [address] [place], [address], [facility] 1 10:47:47 Cocaine abuse 29224506 Completed 201809/30/2020 Bandar Moore, DO [address] [place] [address], [address], [facility] 3 16:46:00 Gout 76265661 Active 2020 Not Available [facility] 2 15:59:35 Secondar y restless legs syndrome 791827112 Active 2020 Not Available [facility] 2 15:59:35 Pain of left hip joint 7436304875 21635 Active 2020 Not Available [facility] 2 15:59:35 Increase d blood pressure 65114942 Active 2020 Not Available [facility] 2 15:59:35 Fracture of tibial plateau 527718428 Active 2021 Not Available [facility] 2 15:59:35 Urinary urgency due to benign prostati c hypertro phy 6994511277 61214 Active 2021 Not Available [facility] 2 15:59:35 Gouty arthropa thy 916055097 Active 2021 Not Available [facility] 2 15:59:35 Lumbago with sciatica 868967540 Active 2021 Not Available [facility] 2 15:59:35 Lumbago with sciatica Active 2021 Not Available [facility] 2 15:59:35 Anxiety 43972090 Active 2021 Bandar Moore, DO [address] [place], [address], [facility] 2 16:24:00 Drug dependen ce 350581711 Active 2022 Bandar Moore, DO [address] [place] [address], [address], [facility] 3 16:45:54 Compartm ent syndrome of lower limb due to traumati c injury 717170197 Active 2022 Bandar Moore DO [address] [place] [address], [address], [facility] 3 16:45:54 Cocaine abuse 98762400 Active 2022 Bandar Moore DO [address] [place] [address], [address], [facility] 3 16:46:00 Dermatop hytosis 86796748 Completed 202208/27/2024 Removal Reason: resolv Bandar Moore, [address] [place] [address], [address], [facility] 4 21:58:55 Plantar fasciiti s of right foot 7020864767 5381387 Active 2022 Bandar Moore DO [address] [place] [address], [address], [facility] 3 16:49:24 Abscess of skin and/or subcutan eous tissue 89175735 Active 2022 SHARITA SOLARES [address] [place] [address], [address], [facility] 3 11:43:33 Atopic dermatit is 50460796 Active 2022 SHARITA SOLARES [address] [place] [address], [address], [facility] 3 15:00:50 Cluster headache 095142019 Active 2022 Bandar Moore DO [address] [place] [address], [address], [facility] 3 16:02:43 Depressi ve disorder 04333148 Active 2022 Bandar Moore, DO [address] [place], [address], [facility] 3 21:41:18 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 75915947 Active 2023 Bandar Moore, DO [address] [place], [address], [facility] 4 12:30:45 Problem Notes None recorded. Procedures Surgical History Date Name Laterality Status Provider Name and Address Organization Details Recorded Time 03/20/2023 I&D completed SHARITA SOLARES [address] [place], [address], [facility] 03/20/2023 11:55:23 Imaging Results Imaging Date Name Status LastModified by Organiz ation Details LastModified Time 07/20/2024 CT, abdomen + pelvis, w/o contrast completed [facility] (Medical Records) [address] [place], [address], 07/20/2024 18:35:36 07/22/2024 fluoroscopy (PROC) completed [email or web address] [facility] (Medical Records) [address] [place], [address], 10/16/2024 10:37:47 10/30/2024 US, abdomen completed [email or web address] [facility] (Medical Records) [address] [place], [address], 11/01/2024 08:12:34 Procedure Notes None recorded. Medical Equipment None [...] Updated DateTime 3 182.88 cm 37.5 kg/m2 161207. 29 g 78 /min 98 % 98 % 148 mm[Hg] 90 mm[Hg] Bandar Moore DO [address] [place], [address], [facility] 3 16:27:10 Date Recorded Body height Oxygen saturation Oxygen saturation in Arterial blood by Pulse oximetry Heart rate Systolic blood pressure Diastolic blood pressure Provider Name and Address Organization Details Last Updated DateTime 3 182.88 cm 97 % 97 % 74 /min 140 mm[Hg] 84 mm[Hg] SHARITA SOLARES [address] [place], [address], [facility] 3 11:13:28 Date Recorded Body height Body mass index (BMI) Body weight Heart rate Oxygen saturation Oxygen saturation in Arterial blood by Pulse oximetry Systolic blood pressure Diastolic blood pressure Provider Name and Address Organization Details Last Updated DateTime 3 182.88 cm 37.4 kg/m2 210648. 49 g 74 /min 97 % 97 % 130 mm[Hg] 80 mm[Hg] Antonina Tian [facility] 3 14:53:30 Date Recorded Body height Body mass index (BMI) Body weight Heart rate Oxygen saturation Oxygen saturation in Arterial blood by Pulse oximetry Systolic blood pressure Diastolic blood pressure Provider Name and Address Organization Details Last Updated DateTime 4 182.88 cm 36.2 kg/m2 373552. 16 g 74 /min 98 % 98 % 122 mm[Hg] 74 mm[Hg] Lj Lopez [facility] 4 11:39:32 Social History Question Answer Notes LastModified by Organizat ion Details LastModified Time Tobacco Smoking Status Never Smoker Bandar Moore DO [address] [place], [address], [facility] 06/18/2019 14:09:35 What Was The [...] mcg/0.3 mL dose 09/04/2021 completed Not Available [facility] 2 15:59:35 COVID-19, mRNA, LNP-S, PF, 30 mcg/0.3 mL dose 01/06/2021 completed Not Available [facility] 2 15:59:35 COVID-19, mRNA, LNP-S, PF, 30 mcg/0.3 mL dose 01/27/2021 completed Not Available [facility] 2 15:59:35 Past Encounters Encounter ID Performer Location Encounter Start Date Encounter Closed Date Diagnosis/Indication Diagnosis SNOMED-CT Code Diagnosis ICD10 Code Diagnosis Note [id number] Kae De Oliveira NP, S [facility] [address] [facility], [facility] [place] [address] 01/17/2018 15:44:11 01/17/2018 17:03:43 Cough 11333863 R05 Acute bronchitis 2586164 2 J20.9 Excessive sweating 98083 005 R61 await CXR results [id number] Bandar Moore [facility] [address] [facility], [place] [address] 06/18/2019 14:04:51 06/18/2019 14:43:52 Alcohol abuse 75717709 F10.10 mvi will check lab will seek counselor call insur here will get him cont with AA and will add a little librium for him to use prn will rechk i one week [id number] Bandar Moore [facility] [address] [facility], [place] [address] 06/24/2019 15:03:49 06/24/2019 16:22:43 Drug dependence 972955141 F19.20 doing great and is becoming better Eczema 00318913 L30.9 stable will cont the cream on a prn basis [id number] Bandar BarreraАнна Moore [facility] [address] [facility], [place] [address] 07/08/2019 15:52:00 07/08/2019 16:38:29 Alcohol abuse 78013278 F10.10 F10.11 mvi will check lab will seek counselor call insur here will get him cont with AA labwork pending Cocaine abuse 99134469 F 14.10 asymptomat ic is clean Multiple skin tags 25377 7009 L91.8 [id number] Bandar Lin Teresa [facility] [address] [facility], [place] [address] 08/28/2019 15:35:31 08/28/2019 16:14:01 Cocaine abuse 04296179 F14.10 asymptomat ic is clean Alcohol abuse 80976653 F 10.10 F10.11 mvi will check lab will seek counselor here will get him cont with AA labwork looked great. no liver damage - see labs Ptosis of eyelid 3550474 0 H02.409 Having daily ptosis Change in visual field, progressiv malu worse Eczema 30853299 L30.9 B/L LE Multiple skin tags 63331 7009 L91.8 B/l skin tags in axilla Still waiting to see derm Restless legs 82534476 G 25.81 Having many days/week Will treat and recheck on F/U [id number] [facility] [address] [facility],[place] [address] 09/30/2020 08:15:12 09/30/2020 11:13:59 Strain of muscle of left groin region 3021990278 0591703 S76.012A severe groinn pull muscle strain long discussion re seriousnes s of this injury and its lingering effects strongly recc we have him undergo PT Gout 52207229 M10.9 long detailed discussion re etiology and progeressi on and occur how to avoid how to monitor and will need to treat immedialte ly if need discussion on medication discussion on lab work needed to monitor uric acid Diastasis recti 06351593 M62.08 told and discused in detail he will cont to lose wgt and this should help he understand s the cosmetic nature of this Restless legs 31466763 G 25.81 Having many days/week Will treat and recheck on F/U [id number] Bandar Moore [facility] [address] [facility],[place] [address] 11/09/2020 10:48:24 11/09/2020 11:26:47 Gout 24456173 M10.9 long detailed discussion re etiology and progressio n and occur how to avoid how to monitor and will need to treat immediatel y if need discussion on medication discussion on lab work needed to monitor uric acid Secondary restless legs syndrome 381146265 G25.81 doing well with the pramipexol e and is able to sleep well Increased blood pressure 29899829 R03.0 he will lose weight and we will then go ahead and rechk in the spring [id number] Bandar Moore [facility] [address] [facility], [place] [address] 03/10/2021 09:58:23 03/10/2021 12:04:02 Secondary restless legs syndrome 188776530 G25.81 doing well with the pramipexol e at 1mg and is able to sleep well Gout 76207150 M10.9 long detailed discussion re etiology and progressio n and occur how to avoid how to monitor and will need to treat immediatel y if need discussion on medication discussion on lab work needed to monitor uric acid Drug dependence 55100722 9 F19.20 doing great and is becoming better Cocaine abuse 36587188 F 14.10 asymptomat ic is clean Increased blood pressure 43464024 R03.0 he will lose weight and we will then go ahead and rechk in the spring Onychomyco sis of toenails 694803903 B35.1 following a bad injury the left great toenail has worsened will tx conserv Pain of le ft hip joint 9099608664 55010 M25.552 [id number] Bandar Moore [facility] [address] [facility],[place] [address] 05/28/2021 13:46:36 05/28/2021 14:35:29 Abdominal pain 74555905 R10.9 since resolved ? if this was a retained stone from bile ducts??madison l watch and wait Increased blood pressure 50922772 R03.0 he will lose weight and we will then go ahead and rechk at home and has been doing well . Gout 07921154 M10.9 long detailed discussion re etiology and progressio n and occur how to avoid how to monitor and will need to treat immediatel y if need discussion on medication discussion on lab work needed to monitor uric acid note MUSHROOMS ARE THE PROBABLE CULPRIT HIGH IN PURINES [id number] Bandar Moore DO [facility] [address] [facility] [place] [address] 10/29/2021 11:48:40 10/29/2021 15:14:43 Increased blood pressure 73132796 R03.0 he will lose weight and we will then go ahead and rechk at home and has been doing well . Gout 81292207 M10.9 has been doing much better no episodes long detailed discussion re etiology and progressio n and occur how to avoid how to monitor and will need to treat immediatel y if need discussion on medication discussion on lab work needed to monitor uric acidno gut pains etcnote MUSHROOMS ARE THE PROBABLE CULPRIT HIGH IN PURINES Pain of le ft hip joint 9112465283 80484 M25.552 seems otbe bettter now and no major issuealso has a shoulder pain but has been doing impingemen t exercises Drug dependence 34968144 9 F19.20 doing great Cocaine abuse 38636363 F 14.10 asymptomat ic is clean Screening for malignant neoplasm of colon 348535533 Z12.11 [id number] SHARITA SOLARES [facility] [address] [facility],[place] [address] 12/08/2021 14:08:46 12/08/2021 16:39:50 Fracture of tibial plateau 208081168 S82.111D has fu with ortho on 12/15/21 Compartmen t syndrome of lower limb due to traumatic injury 868984628 T79.A21A the patient is using a walker and crutches Dysuria 18377408 R30.0 will send to [facility] for check Rib pain 757625757 R07.8 1 will monitor [id number] Bandar Moore [facility] [address] [facility],[place] [address] 05/20/2022 08:47:55 05/24/2022 09:52:04 Urinary urgency due to benign prostatic hypertrophy 5380588897 80613 R39.15 Gouty arthropathy 189900 008 M10.09 [id number] Bandar Moore [facility] [address] [facility],[place] [address] 08/24/2022 16:00:38 08/24/2022 16:42:18 Anxiety 97127790 F41.9 [id number] Bandar Moore [facility] [address] [facility],[place] [address] 10/07/2022 16:14:14 10/10/2022 08:29:21 Anxiety 46942195 F41.9 feel excellent we will continue to have him stay on the duloxetine at 30mg and call if he needs to increase Drug dependence 38987961 9 F19.20 doing great he is sober over 2 years!!! Compartmen t syndrome of lower limb due to traumatic injury 736715640 T79.A21A doing great no issues now Screening for malignant neoplasm of colon 845907973 Z12.11 next visit Cocaine abuse 12128554 F 14.10 asymptomat ic is clean Dermatophytosis 74031389 B35.9 Plantar fa sciitis of right foot 6086276364 0182731 M72.2 WILL GO TO [facility] TO GET INSERT [id number] SHARITA SOLARES Internal [facility] [address] [facility],[place] [address] 03/20/2023 11:06:46 03/20/2023 11:57:31 Abscess of skin and/or subcutaneous tissue 91483643 L02.212 will fu in a week to recheck the area [id number] SHARITA SOLARES [facility] [address] [facility],[place] [address] 03/29/2023 14:42:47 03/31/2023 08:09:23 Abscess of skin and/or subcutaneous tissue 30333103 L02.212 reducingdo ing okay will recheck if needed Atopic dermatitis 973401 01 L20.89 will try a topical for patientOTC lotions [id number] Bandar Moore [facility] [address] [facility], [place] [address] 04/19/2024 11:30:32 04/19/2024 14:29:31 Depression screening 739124871 Z13.31 Active or passive immunization 689522272 Z23 Adult heal th examination 954339625 Z00.01 doing very well and overall does have tinea versicolor Pityriasis versicolor 56 739607 B36.0 Urinary ur gency due to benign prostatic hypertrophy 2445342201 67345 R39.15 [id number] Bandar Moore [facility] [address] [facility], [place] [address] 08/21/2024 10:35:29 09/02/2024 12:00:13 Increased blood pressure 04010193 R03.0 he will lose weight and we will then go ahead and rechk at home and has been doing well . Dermatophytosis 52015255 B35.9 resolved Depressive disorder 3548 9007 F32.A struggling noted in past currently stable despite ankle injury Health Concerns Section Related Observation LastModified by Organization Detai ls LastModified Time None Recorded Concern Status LastModified by Organization Details LastModified Time None Recorded Advance Directives Directive None Recorded Payers Encounter Date Sequence Insurance Name Policy Number Policy Elmore Covered Member ID Elmore Member ID Guarantor Name 10/07/2022 1 [place] [facility] [place] [id number] Leonard Mccartney [id number] Leonard Mccartney 03/20/2023 1 [place] [facility] [place] [id number] Leonard Mccartney [id number] Leonard Chaparroeamaddi 03/29/2023 1 [place] [facility] ([facility] [place] [id number] Leonard Mccartney [id number] Leonard Mccartney 04/19/2024 1 [place] [facility] Leonard Mccartney [id number] Leonard Mccartney 08/21/2024 1 [facility] ([facility] [place] [id number] Leonard Mccartney [id number] Leonard Mccartney Notes Date Note Type Note Provider Name a nd Address Organization Details Recorded Time 3 text/html HERE FOR RECHK and is doing betterduloxetine is working wellstates he is tolerating the med and is actually feeling normal Bandar Moore DO [address] [place], [address], [facility] 10/07/2022 16:50:03 3 text/html c/o lump on [...] repeat I and D SHARITA SOLARES [address] [place], [address], [facility] 03/20/2023 11:55:36 3 text/html 10 day F/U abscess: reducing well on its ownwill monitor for [facility] if he needs to be followed up with it atopic dermatitis: given topical to try to see if it helps with the rash and itching SHARITA SOLARES [address] [place], [address], [facility] 03/29/2023 15:09:59 4 text/html Annual WellnessReported bypatient.Diet [...] hearing Vision:no vision problems Bandar Moore DO [address] [place] [address], [address], [facility] 04/19/2024 12:34:58 4 text/html patient is evaluated via tele/video assessment per patient consentduring current pandemicrelates slipped and fell and broke his anklealso underwent a kidney stone removal having urinary frequency Bandar Moore DO [address] [place] [address], [address], [facility] 08/27/2024 22:00:14
== END 2024-11-05 15:45 | disposition home or self-care (01) ==
PROVIDERS: PCP Internal Medicine; Visit Provider Urology
DX: N20.0 Calculus of kidney (principal)
CPT/HCPCS: 99213

== ENCOUNTER → 2024-11-05 15:10 | Outpatient (BNVA) | payer OTHER, SELFPAY | PROVIDERS: PCP Internal Medicine; Visit Provider Urology ==

== ENCOUNTER 2024-12-02 12:01 | Outpatient (REF) | payer OTHER, SELFPAY ==
[2024-12-02 12:55] LABS: MANUAL DIFF FLAG NO
[2024-12-02 13:24] LABS: Ammonia 62 umol/L (13-55); Basophils Absolute Auto 0.1 X10*3/uL (0.0-0.2); Basophils Percent Auto 1.1 % (0-2); Eosinophils Absolute Auto 0.3 X10*3/uL (0.0-0.4); Eosinophils Percent Auto 4.3 % (0-4); Hematocrit 43.1 % (42.0-52.0); Hemoglobin 14.5 g/dl (14.0-18.0); Imm Gran Abs Auto 0.03 X10*3/uL (0.00-0.03); Imm Gran Pct Auto 0.4 % (0.0-0.4); Lymphocytes Absolute Auto 2.1 X10*3/uL (1.2-4.9); Lymphocytes Percent Auto 28.7 % (20-40); Mean Corpuscular HGB Conc 33.6 g/dl (31.0-36.0); Mean Corpuscular Hemoglobin 27.9 pg (27.0-33.0); Mean Corpuscular Volume 82.9 fL (80.0-98.0); Mean Platelet Volume 11.4 fL (9.4-12.4); Monocytes Absolute Auto 0.5 X10*3/uL (0.1-1.2); Monocytes Percent Auto 6.8 % (2-11); Neutrophils Absolute Auto 4.2 x10*3/uL (2.0-8.3); Neutrophils Percent Auto 58.7 % (45-73); Platelet Count 224 X10*3/uL (160-400); Red Cell Distribution Width 14.1 % (11.0-16.0); White Blood Count 7.2 X10*3/uL (4.8-10.8)
[2024-12-02 13:49] LABS: Appearance Urine Clear; Color Urine Yellow; Glucose Urine UA Negative (Negative); Leukocyte Esterase Urine Negative (Negative); Nitrite Urine Negative (Negative); PH 7.5 (5.0-9.0); Urine Blood Negative (Negative); Urine Ketones Negative (Negative); Urine Protein Negative (Neg-Trace)
[2024-12-02 14:08] LABS: Estimated Average Glucose 108 mg/dL; Hemoglobin A1c % 5.4 % (<6.0)
[2024-12-02 14:15] LABS: Alanine Aminotransferase 20 U/L (0-40); Albumin Level 4.1 g/dL (3.5-5.0); Alkaline Phosphatase 70 U/L (39-117); Anion Gap 11 (12-20); Aspartate Amino Transferase 18 U/L (5-37); Bilirubin Total 0.4 mg/dL (0.0-1.0); Blood Urea Nitrogen 12 mg/dL (9-16); Calcium 9.5 mg/dL (8.4-10.2); Carbon Dioxide 25 mmol/L (22-29); Chloride 109 mmol/L (96-108); Estimated Glomerular Filt Rate > 60; Glucose Random 96 mg/dL (60-115); Magnesium 1.7 mg/dL (1.6-2.6); Potassium 4.1 mmol/L (3.3-5.1); Sodium 141 mmol/L (135-145); Total Protein 7.8 g/dL (6.5-8.0)
[2024-12-02 14:18] LABS: Thyroid Stimulating Hormone 1.95 uIU/mL (0.32-4.0)
[2024-12-02 14:26] LABS: Vitamin B12 626 pg/mL (200-900)
[2024-12-02 14:40] LABS: T4 Thyroxine 6.5 ug/dL (4.5-12.0)
== END 2024-12-02 12:02 | disposition home or self-care (01) ==
LOC: HO.MANLDS 12:01
PROVIDERS: Visit Provider Physician Assistant
DX: R55 Syncope and collapse (principal); G40.89 Other seizures; R73.01 Impaired fasting glucose; F44.89 Other dissociative and conversion disorders
CPT/HCPCS: 36415; 80053; 81003; 82140; 82607; 83036; 83735; 84436; 84443; 85025

== ENCOUNTER 2024-12-17 16:37 | Outpatient (REF) | payer OTHER, SELFPAY ==
--- NOTE | ~2024-12-17 | MR_ITS ---
EXAMINATION: MR BRAIN WITHOUT CONTRAST CLINICAL INFORMATION: Syncope COMPARISON: July 01, 2016 TECHNIQUE: MRI of the brain was obtained using routine sequences without contrast. FINDINGS: There is slightly intrinsic hyperintense T1 susceptibility signal without restricted diffusion, bilaterally and symmetric involving the pulvinar of the thalami. No restricted diffusion. No acute intracranial hemorrhage, mass effect, midline shift, hydrocephalus or herniation. Laureano-white matter differentiation is normal. Posterior cranial fossa contents demonstrated no signal abnormality or gross mass effect. Flow-void signal within the main cerebral vessels is normal. There is mild prominence of the extra-axial CSF spaces cerebral sulci involving the bifrontal bitemporal regions. Sellar/suprasellar region demonstrated no signal abnormality or masses. Craniocervical junction is intact and normal. MR/MR head/brain wo con IMPRESSION: Consider FAHR disease. Metabolic and toxic disorders cannot be entirely excluded such as Fabry disease. Electronically signed by: Manuel Coyne MD 12/18/2024 07:43 AM EDT
--- OUTSIDE RECORDS SUMMARY | 2024-12-17 18:54 | XMS_ITS | Data Portability ---
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 Lab hemoglobin A1c, QN, blood 2024 025 [facility], [address] [place] [address], [address], 5 11:55:08 CBC w/ auto diff 2024 025 [facility], [address] [place] [address], [address], 5 11:55:08 CMP, serum or plasma 2024 025 [facility], [address] [place] [address], [address], 5 12:42:17 urinalysis complete, reflex culture 2024 025 [facility], [address] [place] [address], [address], 5 11:55:08 ammonia, blood 2024 025 [facility], [address] [place] [address], [address], 5 11:55:08 TSH + free T4, serum 2024 025 [facility], [address] [place] [address], 239[address], 5 12:42:17 magnesium, serum or plasma 2024 025 [facility], [address] [place] [address], 19119, 5 11:55:08 vitamin B12 + folate, serum or blood 2024 025 [facility], [address] [place] [address], [address], 5 11:55:08 CMP, serum or plasma 2023 024 [facility], [address] [place] [address], 0[address]26, 4 11:14:43 PSA, serum or plasma 2023 024 [facility], [address] [place] [address], [address]10, 4 12:48:53 lipid panel, blood 2023 024 [facility], [address] [place] [address], 319[address], 4 12:48:53 CBC w/ auto diff 2023 024 [facility], [address] [place] [address], 15[address], 4 12:48:53 Referral None recorded. Procedures None recorded. Surgeries None recorded. Imaging US, duplex, carotid artery 2024 025 [facility] (Imaging), [address] [place] [address], [address], 5 08:29:06 MRI, brain, w/wo contrast 2024 025 [facility], [address] [place] [address], [address], 5 08:26:35 US, echocardio gram 2024 025 [facility] (Imaging), [address] [place] [address], [address], 5 08:15:35 holter monitor 2024 025 [email or web address] [facility] (Imaging), [address] [place] [address], [address], 5 14:18:22 electroenc ephalogram 2024 025 [facility] Central Sched[facility], [address] [place], [address], 5 09:18:11 Medication Orders tamsulosin 0.4 mg capsule 2023 024 [facility], [address] [place] [address], [id number], 4 12:32:32 fluconazol e 200 mg tablet [address] [facility] #76548, [address], [place], [id number], 5 11:38:30 betamethas one dipropiona te 0.05 % topical cream [address] [facility]66747, [address], [place], [id number], 4 11:36:35 Bactrim DS 800 mg-160 mg tablet [address] [facility]19898, [address], [place], [id number], 4 11:37:22 Patient TargetsNo targets recorded. Patient Instructions Encounter Date Encounter Id Patient Instructions Last Modified By Organization Details Last Modified Time 04/19/2024 [id number] tinea versicolor : care instructions Not available 04/19/2024 12:32:04 08/21/2024 [id number] learning about mood disorders Not available 08/27/2024 21:59:56 ringworm: care instructions Not available 08/27/2024 21:59:56 Reason for Referral None Reported. Results Created Date Observation Date Name Description Value Unit Range Abnormal Flag Note LastModifiedBy Organization Detail LastModifiedTime 07/20/2007/20/2024 CT, abdom en + pelvi s, w/o contr ast No observ ation record ed. [facility] (Medical Records) [address] [place], [address], 07/20/2024 18:35:36 10/16/19 25 07/22/2024 fluor oscop y (PROC ) No observ ation record ed. [email or web address] (Medical Records) [address] [place], [address], 10/16/2024 10:37:47 10/31/1910/30/2024 US, abdom en No observ ation record ed. [email or web address] [place] [address] (Medical Records) [address] [place] [address], [place], [address], 11/01/2024 08:12:34 Result Notes None recorded. Problems Name Problem SNOMED Code Status Onset Date Resolution Date Notes Provider Name and Address Organization Details Recorded Time Alcohol abuse 09084199 Completed 201809/30/2020 Bandar Moore, DO [address] [place] [address], [address], [place] [facility] 1 10:47:47 Cocaine abuse 24767030 Completed 201809/30/2020 Bandar Moore, DO [address] [place] [address], [address], [place] [facility] 3 16:46:00 Gout 49825404 Active 2020 Not Available [facility] 2 15:59:35 Secondar y restless legs syndrome 851166073 Active 2020 Not Available [facility] 2 15:59:35 Pain of left hip joint 2507228612 79601 Active 2020 Not Available [facility] 2 15:59:35 Increase d blood pressure 13841065 Active 2020 Not Available [facility] 2 15:59:35 Fracture of tibial plateau 757644374 Active 2021 Not Available [facility] 2 15:59:35 Urinary urgency due to benign prostati c hypertro phy 0216777841 71979 Active 2021 Not Available [facility] 2 15:59:35 Gouty arthropa thy 914179521 Active 2021 Not Available [facility] 2 15:59:35 Lumbago with sciatica 633995577 Active 2021 Not Available [facility] 2 15:59:35 Lumbago with sciatica Active 2021 Not Available [facility] 2 15:59:35 Anxiety 56837461 Active 2021 Bandar Moore DO [address] [place] [address], [address], [facility] 2 16:24:00 Drug dependen ce 135918447 Active 2022 Bandar Moore DO [address] [place] [address], [address], [facility] 3 16:45:54 Compartm ent syndrome of lower limb due to traumati c injury 934080184 Active 2022 Bandar Moore DO [address] [place] [address], [address], [facility] 3 16:45:54 Cocaine abuse 97358196 Active 2022 Bandar Moore DO [address] [place] [address], [address], [facility] 3 16:46:00 Dermatop hytosis 05424604 Completed 202208/27/2024 Removal Reason: resolv Bandar Moore DO [address] [place] [address], [address], [facility] 4 21:58:55 Plantar fasciiti s of right foot 6764543168 6409317 Active 2022 Bandar Moore DO [address] [place] [address], [address], [facility] 3 16:49:24 Abscess of skin and/or subcutan eous tissue 54672781 Active 2022 SHARITA SOLARES [address] [place] [address], [address], [facility] 3 11:43:33 Atopic dermatit is 98318084 Active 2022 SHARITA SOLARES [address] [place] [address], [address], [facility] 3 15:00:50 Cluster headache 672864706 Active 2022 Bandar Moore, DO [address] [place] [address], [address], [facility] 3 16:02:43 Depressi ve disorder 08297092 Active 2022 Bandar Moore, DO [address] [place] [address], [address], [facility] 3 21:41:18 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 03810822 Active 2023 Bandar Moore, DO [address] [place] [address], [address], [facility] 4 12:30:45 Syncope and collapse 865876801 Active 2024 SHARITA SOLARES [address] [place] [address], [address], [facility] 5 11:46:20 Seizure 73936895 Active 2024 SHARITA SOLARES [address] [place], [address], [facility] 5 11:46:53 Impaired fasting glycemia 631074121 Active 2024 SHARITA SOLARES [address] [place], [address], [facility] 5 11:51:10 Migraine 94116830 Active 2024 SHARITA SOLARES [address] [place], [address], [facility] 5 11:51:51 Confusio [facility] 296945945 Active 2024 SHARITA SOLARES [address] [place], [address], [facility] 5 11:52:42 Problem Notes None recorded. Procedures Surgical History Date Name Laterality Status Provider Name and Address Organization Details Recorded Time 03/20/2023 I&D completed SHARITA SOLARES [address] [facility], [place], [address], [place] [facility] 03/20/2023 11:55:23 Imaging Results Imaging Date Name Status LastModified by Organiz ation Details LastModified Time 07/20/2024 CT, abdomen + pelvis, w/o contrast completed [facility] (Medical Records) [address] [place], [address], 07/20/2024 18:35:36 07/22/2024 fluoroscopy (PROC) completed [email or web address] [facility] (Medical Records) [address] [place], [address], 10/16/2024 10:37:47 10/30/2024 US, abdomen completed [email or web address] [facility] (Medical Records) [address] [place], [address], 11/01/2024 08:12:34 Procedure Notes None recorded. Medical [...] oral route as needed for 1 day. 12/02 completed Not Available Not Available Not Available hydrocodone 5 mg-acetamin ophen 325 mg tablet TAKE 1 TABLET BY MOUTH EVERY 6 HOURS FOR 7 DAYS 05/28 completed Not Available Not Available Not Available fluconazole 200 mg tablet TAKE 1 TABLET BY MOUTH EVERY DAY FOR 14 DAYS 12/02 completed Not Available Not Available Not Available prednisone 20 mg tablet Take 3 [...] Not Available Not Available No t Available phenazopyri dine 100 mg tablet TAKE 1 TABLET BY MOUTH THREE TIMES DAILY NEEDED FOR SPASMS FOR 4 DAYS 12/02 completed Not Available Not Available Not Available indomethaci n 25 mg capsule TAKE [...] 1 TABLET BY MOUTH EVERY 12 HOURS 12/02 completed Not Available Not Available Not Available ketoconazol e 2 % topical cream APPLY LIBERALLY TOPICALLY TO THE AFFECTED AREA EVERY DAY 04/19 completed Not Available Not Available Not Available naproxen 500 mg tablet TAKE 1 TABLET BY MOUTH TWICE DAILY FOR 7 DAYS NEEDED FOR PAIN 12/02 completed Not Available Not Available Not Available oxycodone 5 mg tablet TAKE 1 TABLET BY MOUTH EVERY 8 HOURS FOR 3 DAYS NEEDED FOR PAIN 12/02 completed Not Available Not Available Not Available cyclobenzap rine 5 mg tablet TAKE 1 TABLET BY MOUTH THREE TIMES DAILY NEEDED FOR BACK SPASM 12/02 completed Not Available Not Available Not Available duloxetine 30 mg capsule,del ayed release [...] Not Available Vitals Date Recorded Body height Oxygen saturation Oxygen saturation in Arterial blood by Pulse oximetry Heart rate Systolic blood pressure Diastolic blood pressure Provider Name and Address Organization Details Last Updated DateTime 3 182.88 cm 97 % 97 % 74 /min 140 mm[Hg] 84 mm[Hg] SHARITA SOLARES [address] [place], [address] [place] [address] Internal Medicine 3 11:13:28 Date Recorded Body height Body mass index (BMI) Body weight Heart rate Oxygen saturation Oxygen saturation in Arterial blood by Pulse oximetry Systolic blood pressure Diastolic blood pressure Provider Name and Address Organization Details Last Updated DateTime 3 182.88 cm 37.4 kg/m2 517184. 49 g 74 /min 97 % 97 % 130 mm[Hg] 80 mm[Hg] Antonina Tian [facility] 3 14:53:30 Date Recorded Body height Body mass index (BMI) Body weight Heart rate Oxygen saturation Oxygen saturation in Arterial blood by Pulse oximetry Systolic blood pressure Diastolic blood pressure Provider Name and Address Organization Details Last Updated DateTime 4 182.88 cm 36.2 kg/m2 530038. 16 g 74 /min 98 % 98 % 122 mm[Hg] 74 mm[Hg] Lj Lopez [facility] 4 11:39:32 Date Recorded Body height Body mass index (BMI) Body weight Heart rate Oxygen saturation Oxygen saturation in Arterial blood by Pulse oximetry Systolic blood pressure Diastolic blood pressure Provider Name and Address Organization Details Last Updated DateTime 5 182.88 cm 36.5 kg/m2 888716. 35 g 71 /min 99 % 99 % 126 mm[Hg] 82 mm[Hg] Lj [place] [facility] 5 11:37:53 Social History Question Answer Notes LastModified by Organizat ion Details LastModified Time Tobacco Smoking Status Never Smoker Bandar Moore, DO [address] [place] [address], [address] 06/18/2019 14:09:35 What Was The Date Of Your Most Recent Tobacco Screening? 12/02/2024 [email or web address] Information not available 12/02/2024 Do You Or Have You Ever Used [...] mcg/0.3 mL dose 09/04/2021 completed Not Available [facility] 11/22/202 2 15:59:35 COVID-19, mRNA, LNP-S, PF, 30 mcg/0.3 mL dose 01/06/2021 completed Not Available [facility] 2 15:59:35 COVID-19, mRNA, LNP-S, PF, 30 mcg/0.3 mL dose 01/27/2021 completed Not Available [facility] 2 15:59:35 Past Encounters Encounter ID Performer Location Encounter Start Date Encounter Closed Date Diagnosis/Indication Diagnosis SNOMED-CT Code Diagnosis ICD10 Code Diagnosis Note [id number] Kae De Oliveira NP, S [facility] [address] [facility],[place] [address] 01/17/2018 15:44:11 01/17/2018 17:03:43 Cough 77700639 R05 Acute bronchitis 8844033 2 J20.9 Excessive sweating 81373 005 R61 await CXR results [id number] Bandar Moore [facility] [address] [facility], [place] ([place] [address] 06/18/2019 14:04:51 06/18/2019 14:43:52 Alcohol abuse 67790221 F10.10 mvi will check lab will seek counselor call insur here will get him cont with AA and will add a little librium for him to use prn will rechk i one week [id number] Bandar Moore [facility] [address] [facility], [place] ([place] [address] 06/24/2019 15:03:49 06/24/2019 16:22:43 Drug dependence 493010177 F19.20 doing great and is becoming better Eczema 14777321 L30.9 stable will cont the cream on a prn basis [id number] Bandar Moore [facility] Internal [facility] [address] [facility], [place] [address] 07/08/2019 15:52:00 07/08/2019 16:38:29 Alcohol abuse 24120884 F10.10 F10.11 mvi will check lab will seek counselor call insur here will get him cont with AA labwork pending Cocaine abuse 97549372 F 14.10 asymptomat ic is clean Multiple skin tags 01652 7009 L91.8 [id number] Bandar Moore [facility] [address] [facility] [place], [place] [address] 08/28/2019 15:35:31 08/28/2019 16:14:01 Cocaine abuse 41482934 F14.10 asymptomat ic is clean Alcohol abuse 95208709 F 10.10 F10.11 mvi will check lab will seek counselor here will get him cont with AA labwork looked great. no liver damage - see labs Ptosis of eyelid 8692998 0 H02.409 Having daily ptosis Change in visual field, progressiv malu worse Eczema 42270537 L30.9 B/L LE Multiple skin tags 63220 7009 L91.8 B/l skin tags in axilla Still waiting to see derm Restless legs 77881174 G 25.81 Having many days/week Will treat and recheck on F/U [id number] Bandar Moore [facility] [address] [facility] on [place] Kristen [place] [address] 09/30/2020 08:15:12 09/30/2020 11:13:59 Strain of muscle of left groin region 5706001646 1640003 S76.012A severe groinn pull muscle strain long discussion re seriousnes s of this injury and its lingering effects strongly recc we have him undergo PT Gout 05939319 M10.9 long detailed discussion re etiology and progeressi on and occur how to avoid how to monitor and will need to treat immedialte ly if need discussion on medication discussion on lab work needed to monitor uric acid Diastasis recti 05214982 M62.08 told and discused in detail he will cont to lose wgt and this should help he understand s the cosmetic nature of this Restless legs 70417753 G 25.81 Having many days/week Will treat and recheck on F/U [id number] Bandar Moore DO [facility] [address] [facility] [address],[place] [address] 11/09/2020 10:48:24 11/09/2020 11:26:47 Gout 76993426 M10.9 long detailed discussion re etiology and progressio n and occur how to avoid how to monitor and will need to treat immediatel y if need discussion on medication discussion on lab work needed to monitor uric acid Secondary restless legs syndrome 946597386 G25.81 doing well with the pramipexol e and is able to sleep well Increased blood pressure 86446645 R03.0 he will lose weight and we will then go ahead and rechk in the spring [id number] Bandar Moore DO [facility] [address] [facility],[place] [address] 03/10/2021 09:58:23 03/10/2021 12:04:02 Secondary restless legs syndrome 835173808 G25.81 doing well with the pramipexol e at 1mg and is able to sleep well Gout 91034289 M10.9 long detailed discussion re etiology and progressio n and occur how to avoid how to monitor and will need to treat immediatel y if need discussion on medication discussion on lab work needed to monitor uric acid Drug dependence 68363535 9 F19.20 doing great and is becoming better Cocaine abuse 95244950 F 14.10 asymptomat ic is clean Increased blood pressure 08503590 R03.0 he will lose weight and we will then go ahead and rechk in the spring Onychomyco sis of toenails 343185928 B35.1 following a bad injury the left great toenail has worsened will tx conserv Pain of le ft hip joint 3447384219 17675 M25.552 [id number] Bandar Moore DO [facility] [address] [facility],[place] [address] 05/28/2021 13:46:36 05/28/2021 14:35:29 Abdominal pain 71576247 R10.9 since resolved ? if this was a retained stone from bile ducts??madison l watch and wait Increased blood pressure 80437890 R03.0 he will lose weight and we will then go ahead and rechk at home and has been doing well . Gout 49683587 M10.9 long detailed discussion re etiology and progressio n and occur how to avoid how to monitor and will need to treat immediatel y if need discussion on medication discussion on lab work needed to monitor uric acid note MUSHROOMS ARE THE PROBABLE CULPRIT HIGH IN PURINES [id number] Bandar Moore DO [facility] [address] [facility],[place] [address] 10/29/2021 11:48:40 10/29/2021 15:14:43 Increased blood pressure 98528469 R03.0 he will lose weight and we will then go ahead and rechk at home and has been doing well . Gout 73060880 M10.9 has been doing much better no episodes long detailed discussion re etiology and progressio n and occur how to avoid how to monitor and will need to treat immediatel y if need discussion on medication discussion on lab work needed to monitor uric acidno gut pains etcnote MUSHROOMS ARE THE PROBABLE CULPRIT HIGH IN PURINES Pain of le ft hip joint 4058773016 34083 M25.552 seems otbe bettter now and no major issuealso has a shoulder pain but has been doing impingemen t exercises Drug dependence 73079567 9 F19.20 doing great Cocaine abuse 27303294 F 14.10 asymptomat ic is clean Screening for malignant neoplasm of colon 408164006 Z12.11 [id number] SHARITA SOLARES [facility] [address] [facility],[place] [address] 12/08/2021 14:08:46 12/08/2021 16:39:50 Fracture of tibial plateau 562702094 S82.111D has fu with ortho on 12/15/21 Compartmen t syndrome of lower limb due to traumatic injury 987036120 T79.A21A the patient is using a walker and crutches Dysuria 61649923 R30.0 will send to [facility] for check Rib pain 199994640 R07.8 1 will monitor [id number] Bandar Moore DO [facility] [address] [facility],[place] [address] 05/20/2022 08:47:55 05/24/2022 09:52:04 Urinary urgency due to benign prostatic hypertrophy 6809979789 13178 R39.15 Gouty arthropathy 520232 008 M10.09 [id number] Bandar Moore DO [facility] [address] [facility] on [place] [facility] [place] [address] 08/24/2022 16:00:38 08/24/2022 16:42:18 Anxiety 05264535 F41.9 [id number] Bandar Moore [facility] [address] [facility] [address] [place] [facility] [place] [address] 10/07/2022 16:14:14 10/10/2022 08:29:21 Anxiety 36072612 F41.9 feel excellent we will continue to have him stay on the duloxetine at 30mg and call if he needs to increase Drug dependence 56251380 9 F19.20 doing great he is sober over 2 years!!! Compartmen t syndrome of lower limb due to traumatic injury 587125297 T79.A21A doing great no issues now Screening for malignant neoplasm of colon 929237175 Z12.11 next visit Cocaine abuse 83718013 F 14.10 asymptomat ic is clean Dermatophytosis 39712354 B35.9 Plantar fa sciitis of right foot 7755085665 7996204 M72.2 WILL GO TO [facility] TO GET INSERT [id number] SHARITA SOLARES [facility] [address] [facility] on [place] [facility] [place] [address] 03/20/2023 11:06:46 03/20/2023 11:57:31 Abscess of skin and/or subcutaneous tissue 26382058 L02.212 will fu in a week to recheck the area [id number] SHARITA SOLARES [facility] [address] [facility] [address] [place] [address] 03/29/2023 14:42:47 03/31/2023 08:09:23 Abscess of skin and/or subcutaneous tissue 10093811 L02.212 reducingdo ing okay will recheck if needed Atopic dermatitis 278342 01 L20.89 will try a topical for patientOTC lotions [id number] Bandar Moore [facility] [address] [facility] [address] [place] [address] 04/19/2024 11:30:32 04/19/2024 14:29:31 Depression screening 706933298 Z13.31 Active or passive immunization 457117278 Z23 Adult heal th examination 572135340 Z00.01 doing very well and overall does have tinea versicolor Pityriasis versicolor 56 793491 B36.0 Urinary ur gency due to benign prostatic hypertrophy 6556996648 46555 R39.15 [id number] Bandar Moore DO [facility] [address] [facility],[place] [address] 08/21/2024 10:35:29 09/02/2024 12:00:13 Increased blood pressure 63382730 R03.0 he will lose weight and we will then go ahead and rechk at home and has been doing well . Dermatophytosis 01499900 B35.9 resolved Depressive disorder 3548 9007 F32.A struggling noted in past currently stable despite ankle injury [id number] SHARITA SOLARES [facility] [address] [facility],[place] [address] 12/02/2024 11:25:17 12/02/2024 14:18:22 Syncope and collapse 673679978 R55 will set up with the imaging and additional lab work Seizure 22331812 G40.89 will set up with EEG and lab work Impaired f asting glycemia 675687311 R73.01 recheck levels Migraine 38272034 G43.90 9 ?possible migraine presentati on vs seizure vs TIA Confusional state 845071 003 F44.89 will set up with lab work Health Concerns Section Related Observation LastModified by Organization Detai ls LastModified Time None Recorded Concern Status LastModified by Organization Details LastModified Time None Recorded Advance Directives Directive None Recorded Payers Encounter Date Sequence Insurance Name Policy Number Policy Elmore Covered Member ID Elmore Member ID Guarantor Name 03/20/2023 1 [place] [facility] [facility] [id number] Leonard Mccartney [id number] Leonard Chaparroeamaddi 03/29/2023 1 [place] [facility] ([facility] [id number] Leonard Mccartney [id number] Leonard Chaparroeamaddi 04/19/2024 1 [place] [facility] Leonard Mccartney [id number] Leonard Mccartney 08/21/2024 1 [facility] ([facility] [id number] Leonard Mccartney [id number] Leonard Mccarteny 12/02/2024 1 [facility] ([facility] [id number] Leonard Mccartney [id number] Leonard Mccartney Notes Date Note Type Note Provider Name a nd Address Organization Details Recorded Time 3 text/html c/o lump on the left [...] repeat I and D SHARITA SOLARES [address] [place], [address], [facility] 03/20/2023 11:55:36 3 text/html 10 day F/U abscess: reducing well on its ownwill [facility] needs [facility] be followed up with it atopic dermatitis: given topical to try to see if it helps with the rash and itching SHARITA SOLARES [address] [place], [address], [facility] 03/29/2023 15:09:59 4 text/html Annual [...] loss of hearing Vision:no vision problems Bandar A. Bigda, [address] [place], [address], [facility] 04/19/2024 12:34:58 4 text/html patient is evaluated via tele/video assessment per patient consentduring current pandemicrelates slipped and fell and broke his anklealso underwent a kidney stone removal having urinary frequency Bandar Moore DO [address] [place], [address], [facility] 08/27/2024 22:00:14 5 text/html c/o pt passed out the patient passed out on a bench, noted that his witnessed itthe patient reports he was unresponsive on a bench, passed out, castillo gandara patient notes he was drooling, was having the twitching that was happening, came too and patient was pretty aware of his situation no chest pain, no sob, no fever, no chills the patient reports that no correlation and no changes to his lifestyledenies overexerting himself, no new foods, no new medsnothing changed at all according to patient patient noted he had a nystagmus the patient reports that he did smoke a new type of marijuana but hasn't had issues since then and he's redone it recommended f/u with fu scan and lab work SHARITA SOLARES [address] [place], [address], [facility] 12/02/2024 12:10:41
== END 2024-12-17 16:38 | disposition home or self-care (01) ==
LOC: HO.MRI 16:37
PROVIDERS: PCP Internal Medicine; Visit Provider Physician Assistant
DX: R55 Syncope and collapse (principal)
CPT/HCPCS: 70551

== ENCOUNTER → 2024-12-17 16:49 | Outpatient (BNV) | payer OTHER, SELFPAY | PROVIDERS: PCP Internal Medicine; Visit Provider Radiology Diagnostic Radiology | DX: R55 Syncope and collapse (principal) | CPT/HCPCS: 70551 ==

== ENCOUNTER 2024-12-26 11:19 | Outpatient (REF) | payer OTHER, SELFPAY ==
--- NOTE | ~2024-12-26 | US_ITS ---
EXAMINATION: BILATERAL CAROTID ULTRASOUND WITH DOPPLER HISTORY: syncope COMPARISON: Comparison is made with the prior examination dated 06/27/2016. TECHNIQUE: Real time and Color and Spectral doppler ultrasonography of the carotid and vertebral arteries was performed in multiple planes. FINDINGS: A tiny amount of plaque is noted at the right carotid bifurcation. No significant plaque is seen on the left. VERTEBRAL FLOW DIRECTION: Antegrade bilaterally. PEAK SYSTOLIC VELOCITIES (in cm/sec): RIGHT: CCA: Prox: 106 Dist: 58.0 ICA: Prox: 53.3 Mid: 93.4 Dist: 97..7 ICA/CCA Ratio: 0.92 ECA: 115 Peak ICA EDV: 42.3 LEFT: CCA: Prox: 109 Dist: 74.6 ICA: Prox: 82.0 Mid: 98.8 Dist: 59.0 ICA/CCA Ratio: 0.91 ECA: 121 Peak ICA EDV: 25.5 US/US carotid duplex BI IMPRESSION: Findings consistent with 0-49% stenosis of the right internal carotid artery. Unremarkable appearing left internal carotid artery with no significant stenosis. Electronically signed by: Hector Posey MD 12/26/2024 03:40 PM EDT
--- NOTE | 2024-12-26 11:31 | CA_ITS ---
Transthoracic Echocardiogram Patient (Last, First, Middle): Leonard Mccartney William Gender: Male Date of : 1970 Age: 54 Procedure Date: 12/26/2024 Procedure Type: Transthoracic Echocardiogram Location: OP Height: 182.88 cm Weight: 117.94 kg BSA: 2.38 m2 Heart Rate: 66 bpm BP: 148 / 72 mmHg Evs Attendant: JESSICA Referring MD: Swapna SHERIFF Overnight Caregiver: Rio Machuca MD Symptoms: R55 SYNCOPE, COLLAPSE Study Quality: Adequate ECG Rhythm: Sinus Conclusions: - 1. Normal LV ejection fraction of 65-70% 2. Cardiac valvular Dopplers within normal limits 3. Upper limits of normal ascending aortic size 4. Normal RV systolic pressure 5. No pericardial effusion Findings Left Ventricle Normal left ventricular size, thickness, and systolic function. The visually estimated ejection fraction is between 65-70%. Spectral Doppler is indicative of a normal filling pattern. Right Ventricle Normal right ventricular cavity size and systolic function. Atria The left atrium is normal in size. There is lipomatous hypertrophy of the interatrial septum. There is a mobile atrial septum noted. Interatrial shunt cannot be excluded. The right atrium is normal in size. Aortic Valve Normal aortic valve structure and function. There is no aortic valve stenosis. There is no aortic valve regurgitation. Mitral Valve Normal mitral valve structure and function. There is trace mitral valve regurgitation. There is no mitral valve stenosis. Pulmonic Valve The pulmonic valve was not well visualized. Tricuspid Valve Likely normal tricuspid valve structure and function. There is trace tricuspid valve regurgitation. The right ventricular systolic pressure is normal. The right ventricular systolic pressure is 29 mmHg. Normal right atrial pressure. There is no evidence of pulmonary hypertension. Great Vessels The pulmonary artery was not well visualized. Venous The inferior vena cava is normal in size and collapses greater than 50% with inspiration. Pericardium/Pleural There is no evidence of pericardial effusion. Prior Study Comparison No prior study available for comparison. Measurements 2D Linear Measurements IVSd: 1.07 0.6-0.9/0.6-1.0 cm LVIDd: 4.97 3.9-5.3/4.2-5.9 cm LVIDd Index: 2.09 2.4-3.2/2.2-3.1 cm/m2 LVIDs: 3.42 2.0-3.6 cm LVPWd: 0.89 0.7-1.1 cm LA Diam: 3.80 2.7-3.8/3.0-4.0 cm LAIDs Index: 1.60 1.5-2.3 cm/m2 LV Mass: 220.70 67-162/88-224 g LV Mass Index: 92.73 43-95/49-115 g/m2 LVOT Diam: 2.70 3.0+(-)1.3 cm 2D Systolic Function EF 4C: 61.50 >55% EF 2C: 70.50 >55% EF BiP: 66.60 >55% Mitral Valve MV Pk E: 0.76 MV PK A: 0.69 MV Decel Time: 223.00 E/A: 1.10 E'Lateral: 16.20 E'Medial: 5.87 E/E' Med: 13.00 E/E' Lat: 4.70 PHT: 65.00 MVA PHT: 3.38 Decel [place]: 3.42 Aortic Valve AoV Pk Jerman: 1.21 AoV Pk Grad: 6.00 DIAMANTE: 5.10 LVOT LVOT Pk Jerman: 1.08 LVOT Mn Jerman: 0.71 LVOT VTI: 0.21 LVOT Pk Grad: 5.00 LVOT Mn Grad: 2.00 LVOT Diam: 2.70 LVOT Area: 5.73 Diastolic Function MV Pk E: 0.76 MV Pk A: 0.69 E/A: 1.10 E'Medial: 5.87 E/E' Med: 13.00 E' Laterial: 16.20 E/E' Lat: 4.70 Right Ventricle TAPSE (mm): 22.00 TVS' Jerman: 12.80 Tricuspid Valve TR Pk Jerman: 2.27 TR Pk Grad: 21.00 RA Press: 8.00 RVSP: 29.00 Great Vessels Aorta Sinus of Valsalva: 4.00 2.0-3.5 cm Ao Asc: 3.60 2.1-3.4 cm Pulmonary Veins Pulm Vein S/D 1.20 Pulmonary Valve PV Pk Jerman: 1.03 Peak PV Grad: 4.00 Updated in Other Vendor System with Status of Final Rio Machuca MD electronically signed on 12/26/2024 4:43:01 PM with status of Final
--- NOTE | 2024-12-26 11:32 | HM_ITS ---
* Total monitoring time 3 days. * Underlying rhythm is sinus with an average rate of 73/Min. * Rare supraventricular ectopy. * Rare ventricular ectopy. * No significant pauses or high-grade AV blocks. * No patient markers or diary events. MTDD
--- NOTE | 2024-12-26 11:35 | EEG_ITS ---
FINDINGS: Waking background activity consists of well-defined moderate voltage 5 to 10 Hz alpha frequency intermixed anteriorly with low voltage. No drowsiness or sleep stages are recorded. Photic stimulation is without activation. Hypoventilation is omitted. No focal, lateralizing, or paroxysmal discharges are seen. IMPRESSION: This waking EEG is within normal limits. MD SANDRA Handley/DESTINEE / [phone]
--- OUTSIDE RECORDS SUMMARY | 2024-12-26 13:44 | XMS_ITS | Data Portability ---
Author Organization [facility] Home Service Address [address] [place] [address] Assessment Encounter Date Assessment Date Assessment LastModified by Organization Details LastModified Time 08/21/2024 08/21/2024 [id number] [place] [id number] (POSTDOCTORAL RESEARCH FELLOW) : MDM LOW MUST MEET 2 OF [...] Lab hemoglobin A1c, QN, blood 2024 025 [facility], [address] [place] [address], [address], 5 11:55:08 CBC w/ auto diff 2024 025 [facility], [address] [place] [address], [address], 5 11:55:08 CMP, serum or plasma 2024 025 [facility], [address] [place] [address], [address], 5 12:42:17 urinalysis complete, reflex culture 2024 025 [facility], [address] [place] [address], [address], 5 11:55:08 ammonia, blood 2024 025 [facility], [address] [place] [address], [address], 5 11:55:08 TSH + free T4, serum 2024 025 [facility], [address] [place] [address], [address], 5 12:42:17 magnesium, serum or plasma 2024 025 [facility], [address] [place] [address], [address], 5 11:55:08 vitamin B12 + folate, serum or blood 2024 025 [facility], [address] [place] [address], [address], 5 11:55:08 CMP, serum or plasma 2023 024 [facility], [address] [place] [address], [address], 4 11:14:43 PSA, serum or plasma 2023 024 [facility], [address] [place] [address], [address], 4 12:48:53 lipid panel, blood 2023 024 [facility], [address] [place] [address], [address], 4 12:48:53 CBC w/ auto diff 2023 024 [facility], [address] [place] [address], [address], 4 12:48:53 Referral None recorded. Procedures None recorded. Surgeries None recorded. Imaging US, duplex, carotid artery 2024 025 [facility] (Imaging), [address] [place] [address], [address], 5 08:29:06 MRI, brain, w/wo contrast 2024 025 [facility] Mri, [address] [place] [address], [address], 5 08:26:35 US, echocardio gram 2024 025 [facility] (Imaging), [address] [place] [address], [address], 5 08:15:35 holter monitor 2024 025 [email or web address] [facility] (Imaging), [address] [place] [address], [address], 5 14:18:22 electroenc ephalogram 2024 025 [facility] Central Scheduling, [address] [place], [address], 5 09:18:11 Medication Orders tamsulosin 0.4 mg capsule 2023 024 [id number], [address] [place] [address], [id number], 4 12:32:32 fluconazol e 200 mg tablet 2023 025 [email or web address] #[id number], [address] [place], [id number], 5 11:38:30 betamethas one dipropiona te 0.05 % topical cream 2022 023 [email or web address] [facility] #[id number], [address] [place] [address], [place], [id number], 4 11:36:35 Patient TargetsNo targets recorded. Patient Instructions Encounter Date Encounter Id Patient Instructions Last Modified By Organization Details Last Modified Time 04/19/2024 [id number] tinea versicolor : care instructions Not available 04/19/2024 12:32:04 08/21/2024 [id number] learning about mood disorders Not available 08/27/2024 21:59:56 ringworm: care instructions Not available 08/27/2024 21:59:56 Reason for Referral None Reported. Results Created Date Observation Date Name Description Value Unit Range Abnormal Flag Note LastModifiedBy Organization Detail LastModifiedTime 07/20/20 24 07/20/2024 CT, abdom en + pelvi s, w/o contr ast No observ ation record ed. [facility] (Medical Records) [address] [place] [address], [address], 07/20/2024 18:35:36 10/16/19 25 07/22/2024 fluor oscop y (PROC ) No observ ation record ed. [email or web address] [facility] (Medical Records) [address] [place] [address], [address], 10/16/2024 10:37:47 10/31/19 25 10/30/2024 US, abdom en No observ ation record ed. [email or web address] [facility] (Medical Records) [address] [place] [address], [address], 11/01/2024 08:12:34 12/19/19 25 12/17/2024 MRI, brain , w/wo contr ast No observ ation record ed. [facility] (Medical Records) [address] [facility], [place], [address], 12/18/2024 13:57:11 Result Notes None recorded. Problems Name Problem SNOMED Code Status Onset Date Resolution Date Notes Provider Name and Address Organization Details Recorded Time Alcohol abuse 25126973 Completed 201809/30/2020 Bandar Moore, DO [address] [place] [address], [address], [facility] 1 10:47:47 Cocaine abuse 45995338 Completed 201809/30/2020 Bandar Moore, DO [address] [place] [address], [address], [facility] 3 16:46:00 Gout 33116229 Active 2020 Not Available [facility] 2 15:59:35 Secondar y restless legs syndrome 508787825 Active 2020 Not Available [facility] 2 15:59:35 Pain of left hip joint 8529659970 80871 Active 2020 Not Available [facility] 2 15:59:35 Increase d blood pressure 57663187 Active 2020 Not Available [facility] 2 15:59:35 Fracture of tibial plateau 652313514 Active 2021 Not Available [facility] 2 15:59:35 Urinary urgency due to benign prostati c hypertro phy 5433726237 06445 Active 2021 Not Available [facility] 2 15:59:35 Gouty arthropa thy 042074997 Active 2021 Not Available [facility] 2 15:59:35 Lumbago with sciatica 100285931 Active 2021 Not Available [facility] 2 15:59:35 Lumbago with sciatica 579034141 Active 2021 Not Available [facility] 2 15:59:35 Anxiety 59048918 Active 2021 Bandar Moore DO [address] [place] [address], [address], [facility] 2 16:24:00 Drug dependen ce 363247903 Active 2022 Bandar Moore DO [address] [place] [address], [address], [facility] 3 16:45:54 Compartm ent syndrome of lower limb due to traumati c injury 995988140 Active 2022 Bandar Moore DO [address] [place] [address], [address], [facility] 3 16:45:54 Cocaine abuse 44549885 Active 2022 Bandar Moore DO [address] [place] [address], [address], [facility] 3 16:46:00 Dermatop hytosis 40539158 Completed 202208/27/2024 Removal Reason: resolv Bandar Moore DO [address] [place] [address], [address], [facility] 4 21:58:55 Plantar fasciiti s of right foot 1525810034 6434027 Active 2022 Bandar Moore DO [address] [place] [address], [address], [facility] 3 16:49:24 Abscess of skin and/or subcutan eous tissue 92615558 Active 2022 SHARITA SOLARES [address] [place] [address], [address], [facility] 3 11:43:33 Atopic dermatit is 45599478 Active 2022 SHARITA SOLARES [address] [place] [address], [address], [facility] 3 15:00:50 Cluster headache 827435913 Active 2022 Bandar Moore, DO [address] [place], [address], [facility] 3 16:02:43 Depressi ve disorder 60314440 Active 2022 Bandar Moore, DO [address] [place], [address], [facility] 3 21:41:18 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 46890083 Active 2023 Bandar Moore, DO [address] [place], [address], [facility] 4 12:30:45 Syncope and collapse 384409679 Active 2024 SHARITA SOLARES [address] [place], [address], [facility] 5 11:46:20 Seizure 37900825 Active 2024 SHARITA SOLARES [address] [place], [address], [facility] 5 11:46:53 Impaired fasting glycemia 874455599 Active 2024 SHARITA SOLARES [address] [place], [address], [facility] 5 11:51:10 Migraine 68642355 Active 2024 SHARITA SOLARES [address] [place], [address], [facility] 5 11:51:51 Confusio [facility] 029320461 Active 2024 SHARITA SOLARES [address] [place], [address], [facility] 5 11:52:42 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 Procedures Surgical History Date Name Laterality Status Provider Name and Address Organization Details Recorded Time 03/20/2023 I&D completed SHARITA SOLARES [address] [place], [address], [facility] 03/20/2023 11:55:23 Imaging Results Imaging Date Name Status LastModified by Organiz ation Details LastModified Time 07/20/2024 CT, abdomen + pelvis, w/o contrast completed [facility] (Medical Records) [address] [place], [address], 07/20/2024 18:35:36 07/22/2024 fluoroscopy (PROC) completed [email or web address] [facility] (Medical Records) [address] [place], [address], 10/16/2024 10:37:47 10/30/2024 US, abdomen completed [email or web address] [facility] (Medical Records) [address] [place], [address], 11/01/2024 08:12:34 12/17/2024 MRI, brain, w/wo contrast completed [email or web address] [facility] (Medical Records) [address] [place], [address], 12/18/2024 13:57:11 Procedure Notes None recorded. Medical Equipment None [...] 1 capsule every day by oral route. 06/23 /2021 completed Not Available Not Available Not Available [...] Updated DateTime 3 182.88 cm 37.4 kg/m2 875778. 49 g 74 /min 97 % 97 % 130 mm[Hg] 80 mm[Hg] Antonina Tian [facility] 3 14:53:30 Date Recorded Body height Body mass index (BMI) Body weight Heart rate Oxygen saturation Oxygen saturation in Arterial blood by Pulse oximetry Systolic blood pressure Diastolic blood pressure Provider Name and Address Organization Details Last Updated DateTime 4 182.88 cm 36.2 kg/m2 307056. 16 g 74 /min 98 % 98 % 122 mm[Hg] 74 mm[Hg] [facility] 4 11:39:32 Date Recorded Body height Body mass index (BMI) Body weight Heart rate Oxygen saturation Oxygen saturation in Arterial blood by Pulse oximetry Systolic blood pressure Diastolic blood pressure Provider Name and Address Organization Details Last Updated DateTime 5 182.88 cm 36.5 kg/m2 749550. 35 g 71 /min 99 % 99 % 126 mm[Hg] 82 mm[Hg] Lj Lopez [facility] 5 11:37:53 Date Recorded Body height Body mass index (BMI) Body weight Heart rate Oxygen saturation Oxygen saturation in Arterial blood by Pulse oximetry Systolic blood pressure Diastolic blood pressure Provider Name and Address Organization Details Last Updated DateTime 5 182.88 cm 36.5 kg/m2 704313. 35 g 70 /min 98 % 98 % 120 mm[Hg] 80 mm[Hg] Antonina Tian [facility] 5 16:12:41 Social History Question Answer Notes LastModified by Organizat ion Details LastModified Time Tobacco Smoking Status Never Smoker Bandar Lin [facility], [address] [place], [address], [facility] 06/18/2019 14:09:35 What Was The [...] mcg/0.3 mL dose 09/04/2021 completed Not Available [facility] 2 15:59:35 COVID-19, mRNA, LNP-S, PF, 30 mcg/0.3 mL dose 01/06/2021 completed Not Available [facility] 2 15:59:35 COVID-19, mRNA, LNP-S, PF, 30 mcg/0.3 mL dose 01/27/2021 completed Not Available [facility] 2 15:59:35 Past Encounters Encounter ID Performer Location Encounter Start Date Encounter Closed Date Diagnosis/Indication Diagnosis SNOMED-CT Code Diagnosis ICD10 Code Diagnosis Note [id number] Kae De Oliveira NP, S [facility] [address] [facility],[place] [address] 01/17/2018 15:44:11 01/17/2018 17:03:43 Cough 96326629 R05 Acute bronchitis 8192614 2 J20.9 Excessive sweating 09098 005 R61 await CXR results [id number] Bandar Moore DO [facility] [address] [facility],[place] [address] 06/18/2019 14:04:51 06/18/2019 14:43:52 Alcohol abuse 46670268 F10.10 mvi will check lab will seek counselor call insur here will get him cont with AA and will add a little librium for him to use prn will rechk i one week [id number] Bandar Templetonyaniv [facility] [address] [facility] [address] [address] 06/24/2019 15:03:49 06/24/2019 16:22:43 Drug dependence 567476636 F19.20 doing great and is becoming better Eczema 02491333 L30.9 stable will cont the cream on a prn basis [id number] Bandar Lin Teresa [facility] [address] [facility] [address] [address] 07/08/2019 15:52:00 07/08/2019 16:38:29 Alcohol abuse 86490486 F10.10 F10.11 mvi will check lab will seek counselor call insur here will get him cont with AA labwork pending Cocaine abuse 51124858 F 14.10 asymptomat ic is clean Multiple skin tags 77184 7009 L91.8 [id number] Bandar Templetonyaniv [facility] [address] [facility] [address] [address] 08/28/2019 15:35:31 08/28/2019 16:14:01 Cocaine abuse 62028551 F14.10 asymptomat ic is clean Alcohol abuse 39272182 F 10.10 F10.11 mvi will check lab will seek counselor here will get him cont with AA labwork looked great. no liver damage - see labs Ptosis of eyelid 0833309 0 H02.409 Having daily ptosis Change in visual field, progressiv malu worse Eczema 98540329 L30.9 B/L LE Multiple skin tags 87716 7009 L91.8 B/l skin tags in axilla Still waiting to see derm Restless legs 42885413 G 25.81 Having many days/week Will treat and recheck on F/U [id number] Bandar Temple[facility]yaniv [facility] [address] [facility] [address] [address] 09/30/2020 08:15:12 09/30/2020 11:13:59 Strain of muscle of left groin region 9682723863 3266122 S76.012A severe groinn pull muscle strain long discussion re seriousnes s of this injury and its lingering effects strongly recc we have him undergo PT Gout 46387960 M10.9 long detailed discussion re etiology and progeressi on and occur how to avoid how to monitor and will need to treat immedialte ly if need discussion on medication discussion on lab work needed to monitor uric acid Diastasis recti 40032967 M62.08 told and discused in detail he will cont to lose wgt and this should help he understand s the cosmetic nature of this Restless legs 05013184 G 25.81 Having many days/week Will treat and recheck on F/U [id number] Bandar Moore [facility] [address] [facility],[place] [address] 11/09/2020 10:48:24 11/09/2020 11:26:47 Gout 17637761 M10.9 long detailed discussion re etiology and progressio n and occur how to avoid how to monitor and will need to treat immediatel y if need discussion on medication discussion on lab work needed to monitor uric acid Secondary restless legs syndrome 827807438 G25.81 doing well with the pramipexol e and is able to sleep well Increased blood pressure 15701935 R03.0 he will lose weight and we will then go ahead and rechk in the spring [id number] Bandar Moore [facility] [address] [facility],[place] [address] 03/10/2021 09:58:23 03/10/2021 12:04:02 Secondary restless legs syndrome 077330430 G25.81 doing well with the pramipexol e at 1mg and is able to sleep well Gout 21955495 M10.9 long detailed discussion re etiology and progressio n and occur how to avoid how to monitor and will need to treat immediatel y if need discussion on medication discussion on lab work needed to monitor uric acid Drug dependence 31886081 9 F19.20 doing great and is becoming better Cocaine abuse 54937407 F 14.10 asymptomat ic is clean Increased blood pressure 22585099 R03.0 he will lose weight and we will then go ahead and rechk in the spring Onychomyco sis of toenails 928362890 B35.1 following a bad injury the left great toenail has worsened will tx conserv Pain of le ft hip joint 9318289370 M25.552 [id number] Bandar Moore DO [facility] [address] [facility] [address] [facility] [place] [address] 05/28/2021 13:46:36 05/28/2021 14:35:29 Abdominal pain 46442212 R10.9 since resolved ? if this was a retained stone from bile ducts??madison l watch and wait Increased blood pressure 81601146 R03.0 he will lose weight and we will then go ahead and rechk at home and has been doing well . Gout 75771870 M10.9 long detailed discussion re etiology and progressio n and occur how to avoid how to monitor and will need to treat immediatel y if need discussion on medication discussion on lab work needed to monitor uric acid note MUSHROOMS ARE THE PROBABLE CULPRIT HIGH IN PURINES [id number] Bandar Moore DO [facility] [address] [facility] [address] [address] 10/29/2021 11:48:40 10/29/2021 15:14:43 Increased blood pressure 18588443 R03.0 he will lose weight and we will then go ahead and rechk at home and has been doing well . Gout 77782238 M10.9 has been doing much better no episodes long detailed discussion re etiology and progressio n and occur how to avoid how to monitor and will need to treat immediatel y if need discussion on medication discussion on lab work needed to monitor uric acidno gut pains etcnote MUSHROOMS ARE THE PROBABLE CULPRIT HIGH IN PURINES Pain of le ft hip joint 3328632601 M25.552 seems otbe betvincenter now and no major issuealso has a shoulder pain but has been doing impingemen t exercises Drug dependence 19553956 9 F19.20 doing great Cocaine abuse 77210180 F 14.10 asymptomat ic is clean Screening for malignant neoplasm of colon 240087151 Z12.11 [id number] SHARITA SOLARES [facility] [address] [facility] [address] [address] 12/08/2021 14:08:46 12/08/2021 16:39:50 Fracture of tibial plateau 488737305 S82.111D has fu with ortho on 12/15/21 Compartmen t syndrome of lower limb due to traumatic injury 095287825 T79.A21A the patient is using a walker and crutches Dysuria 46897441 R30.0 will send to [facility] for check Rib pain 217137717 R07.8 1 will monitor [id number] Bandar Moore [facility] [address] [facility],[place] [address] 05/20/2022 08:47:55 05/24/2022 09:52:04 Urinary urgency due to benign prostatic hypertrophy 0615451443 16074 R39.15 Gouty arthropathy 470941 008 M10.09 [id number] Bandar Moore [facility] [address] [facility],[place] [address] 08/24/2022 16:00:38 08/24/2022 16:42:18 Anxiety 90029065 F41.9 [id number] Bandar Moore [facility] [address] [facility],[place] [address] 10/07/2022 16:14:14 10/10/2022 08:29:21 Anxiety 94562962 F41.9 feel excellent we will continue to have him stay on the duloxetine at 30mg and call if he needs to increase Drug dependence 71278045 9 F19.20 doing great he is sober over 2 years!!! Compartmen t syndrome of lower limb due to traumatic injury 447170907 T79.A21A doing great no issues now Screening for malignant neoplasm of colon 117209917 Z12.11 next visit Cocaine abuse 88924589 F 14.10 asymptomat ic is clean Dermatophytosis 74130497 B35.9 Plantar fa sciitis of right foot 7850774266 0529120 M72.2 [facility] GO TO [facility] TO GET INSERT [id number] SHARITA SOLARES [facility] [address] [facility],[place] [address] 03/20/2023 11:06:46 03/20/2023 11:57:31 Abscess of skin and/or subcutaneous tissue 83114425 L02.212 will fu in a week to recheck the area [id number] SHARITA SOLARES [facility] [address] [facility], ite Krist[address] [facility] [address] 03/29/2023 14:42:47 03/31/2023 08:09:23 Abscess of skin and/or subcutaneous tissue 07739069 L02.212 reducingdo ing okay will recheck if needed Atopic dermatitis 573435 01 L20.89 will try a topical for [facility] lotions [id number] Bandar Moore DO [facility] [address] [facility], it[address] [facility] [place] [address] 04/19/2024 11:30:32 04/19/2024 14:29:31 Depression screening 081830090 Z13.31 Active or passive immunization 744935094 Z23 Adult heal th examination 074665229 Z00.01 doing very well and overall does have tinea versicolor Pityriasis versicolor 56 052582 B36.0 Urinary ur gency due to benign prostatic hypertrophy 6407544814 27756 R39.15 [id number] Bandar Moore DO [facility] [address] [facility], [place] [address] 08/21/2024 10:35:29 09/02/2024 12:00:13 Increased blood pressure 80603847 R03.0 he will lose weight and we will then go ahead and rechk at home and has been doing well . Dermatophytosis 60362594 B35.9 resolved Depressive disorder 3548 9007 F32.A struggling noted in past currently stable despite ankle injury [id number] SHARITA SOLARES [facility] [address] [facility],[place] [address] 12/02/2024 11:25:17 12/02/2024 14:18:22 Syncope and collapse 417391411 R55 will set up with the imaging and additional lab work Seizure 68702805 G40.89 will set up with EEG and lab work Impaired f asting glycemia 039286243 R73.01 recheck levels Migraine 48335896 G43.90 9 ?possible migraine presentati on vs seizure vs TIA Confusional state 957902 003 F44.89 will set up with lab work [id number] SHARITA SOLARES [facility] [address] [facility],[place] [address] 12/20/2024 16:00:05 12/20/2024 16:41:07 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 related Confusional state 506799 003 F44.89 will set up with lab work Health Concerns Section Related Observation LastModified by Organization Detai ls LastModified Time None Recorded Concern Status LastModified by Organization Details LastModified Time None Recorded Advance Directives Directive None Recorded Payers Encounter Date Sequence Insurance Name Policy Number Policy Elmore Covered Member ID Elmore Member ID Guarantor Name 03/29/2023 1 [place] [facility] [id number] Leonard W Brosseau [id number] Leonard Brosseau 04/19/2024 1 [place] [facility] Leonard Brosseau [id number] Leonard Brosseau 08/21/2024 1 [facility] [id number] Leonard Brosseau [id number] Leonard Brosseau 12/02/2024 1 [facility] [id number] Leonard Brosseau [id number] Leonard Brosseau 12/20/2024 1 [facility] [id number] Leonard Brosseau [id number] Leonard Brosseau Notes Date Note Type Note Provider Name a nd Address Organization Details Recorded Time 3 text/html 10 day F/U abscess: reducing well on its ownwill monitor for nowwill call if he needs to be followed up with it atopic dermatitis: given topical to try to see if it helps with the rash and itching SHARITA SOLARES [address] [facility], [place], [id number], [facility] 03/29/2023 15:09:59 4 text/html Annual [...] loss of hearing Vision:no vision problems Bandar HollyАнна Moore DO [address] [place] [address], [id number], [facility] 04/19/2024 12:34:58 4 text/html patient is evaluated via tele/video assessment per patient consentduring current pandemicrelates slipped and fell and broke his anklealso underwent a kidney stone removal having urinary frequency Bandar Moore DO [address] [place], [id number], [facility] 08/27/2024 22:00:14 5 text/html c/o [...] scan and lab work SHARITA SOLARES [address] [place], [id number], [facility] 12/02/2024 12:10:41 5 text/html f/u MRI results the patient reports that he has been stable reviewed the results of the MRI with patient and after discussion of the MRI results, patient has calcification of the basal ganglia, mildsuggestive of Fahr's disease after reviewing with patienthas been having tremors, twitching, eye twitching and headacheshas his EEG is already set up, will f/u after his results the patient is doing well SHARITA SOLARES [address] [place] [address], [place], [phone], [facility] 12/20/2024 18:56:45
== END 2024-12-26 11:20 | disposition home or self-care (01) ==
LOC: HO.NEURO 11:19
PROVIDERS: PCP Internal Medicine; Visit Provider Physician Assistant
DX: R55 Syncope and collapse (principal); G40.89 Other seizures
CPT/HCPCS: 93242; 93306; 93880; 95816

== ENCOUNTER → 2024-12-26 11:31 | Outpatient (BNV) | payer OTHER, SELFPAY | PROVIDERS: PCP Internal Medicine; Visit Provider Internal Medicine Cardiovascular Disease | DX: Q21.19 Other specified atrial septal defect (principal); I42.2 Other hypertrophic cardiomyopathy; R93.1 Abnormal findings on diagnostic imaging of heart and coronary circulation | CPT/HCPCS: 93303; 93320; 93325 ==

== ENCOUNTER → 2024-12-26 14:51 | Outpatient (BNV) | payer OTHER, SELFPAY | PROVIDERS: PCP Internal Medicine; Visit Provider Radiology Diagnostic Radiology | DX: R55 Syncope and collapse (principal) | CPT/HCPCS: 93880 ==

== ENCOUNTER 2025-03-05 13:51 | Outpatient (REF) | payer OTHER, SELFPAY ==
--- NOTE | ~2025-03-05 | XR_ITS ---
CLINICAL HISTORY: ACUTE PAIN OF LEFT KNEE --- Additional Notes or Special Instructions: WO 3 view left knee Comparison: None provided Findings: No fractures or dislocations. Mild tricompartmental joint space narrowing. No joint effusion. No radiopaque foreign body. IMPRESSION: 1. No acute findings. 2. Mild degenerative changes. This document has been electronically signed by: John Paul Luna MD on 03/06/2025 10:04:05
--- OUTSIDE RECORDS SUMMARY | 2025-03-05 15:54 | XMS_ITS | Data Portability ---
Author Organization [facility], Telehealth Patient Home Address [address] [place] [address] Assessment Encounter Date Assessment Date Assessment LastModified by Organization Details LastModified Time 08/21/2024 08/21/2024 [id number] [place] [id number] (FREELANCE TRANSLATOR) : MDM LOW MUST MEET 2 OF [...] Lab hemoglobin A1c, QN, blood 2024 025 [facility], [address] [place] [address], [address], 5 11:55:08 CBC w/ auto diff 2024 025 [facility], [address] [place] [address], [address], 5 11:55:08 CMP, serum or plasma 2024 025 [facility], [address] [place] [address], [address], 5 12:42:17 urinalysis complete, reflex culture 2024 025 [facility], [address] [place] [address], [address], 5 11:55:08 ammonia, blood 2024 025 [facility], [address] [place] [address], [address], 5 11:55:08 TSH + free T4, serum 2024 025 [facility], [address] [place] [address], [address], 5 12:42:17 magnesium, serum or plasma 2024 025 [facility], [address] [place] [address], [address], 5 11:55:08 vitamin B12 + folate, serum or blood 2024 025 [facility], [address] [place] [address], [address], 5 11:55:08 CMP, serum or plasma 2023 024 [facility], [address] [place] [address], [address], 4 11:14:43 PSA, serum or plasma 2023 024 [facility], [address] [place] [address], [address], 4 12:48:53 lipid panel, blood 2023 024 [facility], [address] [place] [address], [address], 4 12:48:53 CBC w/ auto diff 2023 [facility], [address] [place] [address], [address], 4 12:48:53 Referral None recorded. Procedures None recorded. Surgeries None recorded. Imaging US, duplex, carotid artery 2024 [facility] [address] [place] [address], [address], 5 08:29:06 MRI, brain, w/wo contrast 2024 [facility], [address] [place] [address], [address], 5 08:26:35 US, echocardio gram 2024 [facility]), [address] [place] [address], [address], 5 08:15:35 holter monitor - Not Required Procedure codes: 68016Hfng Reference #: [id number] ion: Completed on 12/31/2024 at 08:55 am. Call ref #[id number]. 2024 [facility], [address] [place] [address], [address], 5 08:19:39 electroenc ephalogram 2024 [facility], [address] [place] [address], [address], 5 09:18:11 Medication Orders tamsulosin 0.4 mg capsule 2023 024 [id number], [address], [place], [id number], 4 12:32:32 fluconazol e 200 mg tablet 2023 025 [facility] #[id number], [address], [place], [id number], 5 11:38:30 betamethas one dipropiona te 0.05 % topical cream 2022 023 [id number], [address], [place], [id number], 4 11:36:35 Patient TargetsNo targets recorded. Patient Instructions Encounter Date Encounter Id Patient Instructions Last Modified By Organization Details Last Modified Time 04/19/2024 [id number] tinea versicolor : care instructions [facility] Not available 04/19/2024 12:32:04 08/21/2024 [id number] learning about mood disorders Not available 08/27/2024 21:59:56 ringworm: care instructions [facility] Not available 08/27/2024 21:59:56 Reason for Referral None Reported. Results Created Date Observation Date Name Description Value Unit Range Abnormal Flag Note LastModifiedBy Organization Detail LastModifiedTime 07/20/20 24 07/20/2024 CT, abdom en + pelvi s, w/o contr ast No observ ation record ed. [facility] (Medical Records) [address] [place] [address], [address], 07/20/2024 18:35:36 10/16/19 25 07/22/2024 fluor oscop y (PROC ) No observ ation record ed. [email or web address] (Medical Records) [address] [place] [address], [address], 10/16/2024 10:37:47 10/31/19 25 10/30/2024 US, abdom en No observ ation record ed. [facility] (Medical Records) [address] [place], [address], 11/01/2024 08:12:34 12/19/19 25 12/17/2024 MRI, brain , w/wo contr ast No observ ation record ed. [facility] (Medical Records) [address] [place], [address], 12/18/2024 13:57:11 12/27/19 25 12/26/2024 US, francis x, carot id arter y No observ ation record ed. [facility] (Medical Records) [address] [place], [address], 12/26/2024 16:51:49 12/27/19 25 12/26/2024 US, echoc ardio gram No observ ation record ed. [facility] (Medical Records) [address] [place], [address], 12/27/2024 06:54:11 01/01/20 25 12/26/2024 elect roenc ephal ogram No observ ation record ed. [facility] (Medical Records) [address] [place], [address], 12/31/2024 15:52:29 01/08/20 25 12/26/2024 edyta r monit or No observ ation record ed. [email or web address] [facility] (Medical Records) [address] [place], [address], 01/07/2025 16:32:20 Result Notes None recorded. Problems Name Problem SNOMED Code Status Onset Date Resolution Date Notes Provider Name and Address Organization Details Recorded Time Harmful pattern of use of alcohol 34950302 Completed 201809/30/2020 Bandar Moore, DO [address] [place] [address], [address], [place] [facility] 10:47:47 Harmful pattern of use of cocaine 54289743 Completed 201809/30/2020 Bandar Moore, DO [address] [place], [address], [facility] 3 16:46:00 Gout 75795579 Active 2020 Not Available [facility] 2 15:59:35 Secondar y restless legs syndrome 962027411 Active 2020 Not Available [facility] 2 15:59:35 Pain of left hip joint 6260342639 37027 Active 2020 Not Available [facility] 2 15:59:35 Increase d blood pressure 10327181 Active 2020 Not Available [facility] 2 15:59:35 Fracture of tibial plateau 084440438 Active 2021 Not Available [facility] 2 15:59:35 Urinary urgency due to benign prostati c hypertro phy 9879992451 06675 Active 2021 Not Available [facility] 2 15:59:35 Gouty arthropa thy 989131064 Active 2021 Not Available [facility] 2 15:59:35 Lumbago with sciatica 252485060 Active 2021 Not Available [facility] 2 15:59:35 Lumbago with sciatica 924682084 Active 2021 Not Available [facility] 2 15:59:35 Anxiety 08790114 Active 2021 Bandar Moore, DO [address] [place], [address], [facility] 2 16:24:00 Drug dependen ce 245827321 Active 2022 Bandar Moore, DO [address] [place] [address], [address], [facility] 3 16:45:54 Compartm ent syndrome of lower limb due to traumati c injury 931273049 Active 2022 Bandar Moore, DO [address] [place] [address], [address], [facility] 3 16:45:54 Harmful pattern of use of cocaine 32482850 Active 2022 Bandar Moore DO [address] [place] [address], [address], [facility] 3 16:46:00 Dermatop hytosis 26206684 Completed 202208/27/2024 Removal Reason: resolv Bandar Moore DO [address] [place] [address], [address], [facility] 4 21:58:55 Plantar fasciiti s of right foot 8246788959 1850335 Active 2022 Bandar Moore DO [address] [place] [address], [address], [facility] 3 16:49:24 Abscess of skin and/or subcutan eous tissue 53108105 Active 2022 SHARITA SOLARES [address] [place] [address], [address], [facility] 3 11:43:33 Atopic dermatit is 28807552 Active 2022 SHARITA SOLARES [address] [place] [address], [address], [facility] 3 15:00:50 Cluster headache 862771255 Active 2022 Bandar Moore DO [address] [place] [address], [address], [facility] 3 16:02:43 Depressi ve disorder 32947428 Active 2022 Bandar Moore DO [address] [place] [address], [address], [facility] 3 21:41:18 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 16001526 Active 2023 Bandar Moore DO [address] [place], [address], [facility] 4 12:30:45 Syncope and collapse 746814537 Active 2024 SHARITA SOLARES [address] [place], [address], [facility] 5 11:46:20 Seizure 94716292 Active 2024 SHARITA SOLARES [address] [place], [address], [facility] 5 11:46:53 Impaired fasting glycemia 369348618 Active 2024 SHARITA SOLARES [address] [place], [address], [facility] 5 11:51:10 Migraine 07477371 Active 2024 SHARITA SOLARES [address] [place], [address], [facility] 5 11:51:51 Confusio nal state 388732240 Active 2024 SHARITA SOLARES [address] [place], [address], [facility] 5 11:52:42 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 Procedures Surgical History Date Name Laterality Status Provider Name and Address Organization Details Recorded Time 03/20/2023 I&D completed SHARITA SOLARES [address] [facility], [place], [address], [facility] 03/20/2023 11:55:23 Imaging Results None recorded. Procedure Notes None recorded. Medical Equipment None [...] Not Available Not Available Not Available duloxetine 60 mg capsule,del ayed release [...] Updated DateTime 5 182.88 cm 36.5 kg/m2 067590. 35 g 71 /min 99 % 99 % 126 mm[Hg] 82 mm[Hg] Lj Lopez [facility] 5 11:37:53 Date Recorded Body height Body mass index (BMI) Body weight Heart rate Oxygen saturation Oxygen saturation in Arterial blood by Pulse oximetry Systolic blood pressure Diastolic blood pressure Provider Name and Address Organization Details Last Updated DateTime 5 182.88 cm 36.5 kg/m2 105077. 35 g 70 /min 98 % 98 % 120 mm[Hg] 80 mm[Hg] Antonina Tian [facility] 5 16:12:41 Date Recorded Body height Body mass index (BMI) Body weight Heart rate Oxygen saturation Oxygen saturation in Arterial blood by Pulse oximetry Systolic blood pressure Diastolic blood pressure Provider Name and Address Organization Details Last Updated DateTime 3 182.88 cm 37.4 kg/m2 578879. 49 g 74 /min 97 % 97 % 130 mm[Hg] 80 mm[Hg] Antonina Duvallmond [facility] 3 14:53:30 Date Recorded Body height Body mass index (BMI) Body weight Heart rate Oxygen saturation Oxygen saturation in Arterial blood by Pulse oximetry Systolic blood pressure Diastolic blood pressure Provider Name and Address Organization Details Last Updated DateTime 4 182.88 cm 36.2 kg/m2 559007. 16 g 74 /min 98 % 98 % 122 mm[Hg] 74 mm[Hg] Lj Lopez [facility] 4 11:39:32 Social History Question Answer Notes LastModified by Organizat ion Details LastModified Time Tobacco Smoking Status Never Smoker Bandar Moore DO [address] [place] [address], [address] 06/18/2019 14:09:35 What Was The Date Of Your Most Recent Tobacco Screening? 12/02/2024 [email or web address] Information not available 12/02/2024 Sex: Unknown Functional Status Question Answer Note LastModified by Organization D etails LastModified Time Do you or have you ever used any other forms of tobacco or nicotine? No Information not available 10/07/2022 Mental Status None recorded. Family History Nothing Reported. Medical History No medical history recorded. Immunizations Vaccine Type Date Status Note Provider Nam e and Address Organization Details Recorded Time COVID-19, mRNA, LNP-S, PF, 30 mcg/0.3 mL dose 09/04/2021 completed Not Available [facility] 2 15:59:35 COVID-19, mRNA, LNP-S, PF, 30 mcg/0.3 mL dose 01/06/2021 completed Not Available [facility] 2 15:59:35 COVID-19, mRNA, LNP-S, PF, 30 mcg/0.3 mL dose 01/27/2021 completed Not Available [facility] 2 15:59:35 Past Encounters Encounter ID Performer Location Encounter Start Date Encounter Closed Date Diagnosis/Indication Diagnosis SNOMED-CT Code Diagnosis ICD10 Code Diagnosis Note [id number] Bandar Moore DO [facility] [address] [facility] [place] [address] 01/17/2018 15:44:11 01/17/2018 17:03:43 Cough 98755215 R05 Acute bronchitis 8998926 2 J20.9 Excessive sweating 19407 005 R61 await CXR results [id number] Bandar BarreraАнна Moore [facility] [address] [facility] [address], [place] [address] 06/18/2019 14:04:51 06/18/2019 14:43:52 Harmful pattern of use of alcohol 77029508 F10.10 mvi will check lab will seek counselor call insur here will get him cont with AA and will add a little librium for him to use prn will rechk i one week [id number] Bandar Moore [facility] [address], [place] [facility] [place] [address] 06/24/2019 15:03:49 06/24/2019 16:22:43 Drug dependence 458286494 F19.20 doing great and is becoming better Eczema 98331780 L30.9 stable will cont the cream on a prn basis [id number] Bandar Moore [facility] [address] [facility] [address], [place] [address] 07/08/2019 15:52:00 07/08/2019 16:38:29 Harmful pattern of use of alcohol 19844928 F10.10 F10.11 mvi will check lab will seek counselor call insur here will get him cont with AA labwork pending Harmful pa ttern of use of cocaine 36994176 F14.10 asymptomat ic is clean Multiple skin tags 01806 7009 L91.8 [id number] Bandar Riley Moore [facility] [address] [facility] [address],[place] [address] 08/28/2019 15:35:31 08/28/2019 16:14:01 Harmful pattern of use of cocaine 88207961 F14.10 asymptomat ic is clean Harmful pa ttern of use of alcohol 10933548 F10.10 F10.11 mvi will check lab will seek counselor here will get him cont with AA labwork looked great. no liver damage - see labs Ptosis of eyelid 5697939 0 H02.409 Having daily ptosis Change in visual field, progressiv malu worse Eczema 85399698 L30.9 B/L LE Multiple skin tags 41616 7009 L91.8 B/l skin tags in axilla Still waiting to see derm Restless legs 14014397 G 25.81 Having many days/week Will treat and recheck on F/U [id number] Bandar Moore [facility] [address],[place] [facility] [place] [address] 09/30/2020 08:15:12 09/30/2020 11:13:59 Strain of muscle of left groin region 5236170663 6671681 S76.012A severe groinn pull muscle strain long discussion re seriousnes s of this injury and its lingering effects strongly recc we have him undergo PT Gout 80271928 M10.9 long detailed discussion re etiology and progeressi on and occur how to avoid how to monitor and will need to treat immedialte ly if need discussion on medication discussion on lab work needed to monitor uric acid Diastasis recti 51992696 M62.08 told and discused in detail he will cont to lose wgt and this should help he understand s the cosmetic nature of this Restless legs 98268984 G 25.81 Having many days/week Will treat and recheck on F/U [id number] Bandar Moore [facility] [address] [place] [address],[place] [address] 11/09/2020 10:48:24 11/09/2020 11:26:47 Gout 05142152 M10.9 long detailed discussion re etiology and progressio n and occur how to avoid how to monitor and will need to treat immediatel y if need discussion on medication discussion on lab work needed to monitor uric acid Secondary restless legs syndrome 266811579 G25.81 doing well with the pramipexol e and is able to sleep well Increased blood pressure 38024367 R03.0 he will lose weight and we will then go ahead and rechk in the spring [id number] Bandar Moore [facility] [address] [place] [address],[place] [address] 03/10/2021 09:58:23 03/10/2021 12:04:02 Secondary restless legs syndrome 332377603 G25.81 doing well with the pramipexol e at 1mg and is able to sleep well Gout 66783496 M10.9 long detailed discussion re etiology and progressio n and occur how to avoid how to monitor and will need to treat immediatel y if need discussion on medication discussion on lab work needed to monitor uric acid Drug dependence 33556067 9 F19.20 doing great and is becoming better Harmful pa ttern of use of cocaine 97856042 F14.10 asymptomat ic is clean Increased blood pressure 30333676 R03.0 he will lose weight and we will then go ahead and rechk in the spring Onychomyco sis of toenails 166819532 B35.1 following a bad injury the left great toenail has worsened will tx conserv Pain of le ft hip joint 2206190539 80833 M25.552 [id number] Bandar Moore DO [facility] [address], [employer] [facility] [place] [address] 05/28/2021 13:46:36 05/28/2021 14:35:29 Abdominal pain 62643773 R10.9 since resolved ? if this was a retained stone from bile ducts??madison l watch and wait Increased blood pressure 74663219 R03.0 he will lose weight and we will then go ahead and rechk at home and has been doing well . Gout 87751949 M10.9 long detailed discussion re etiology and progressio n and occur how to avoid how to monitor and will need to treat immediatel y if need discussion on medication discussion on lab work needed to monitor uric acid note MUSHROOMS ARE THE PROBABLE CULPRIT HIGH IN PURINES [id number] Bandar Moore DO [facility] [address], [address] [facility] [place] [address] 10/29/2021 11:48:40 10/29/2021 15:14:43 Increased blood pressure 22655200 R03.0 he will lose weight and we will then go ahead and rechk at home and has been doing well . Gout 97096996 M10.9 has been doing much better no episodes long detailed discussion re etiology and progressio n and occur how to avoid how to monitor and will need to treat immediatel y if need discussion on medication discussio n on lab work needed to monitor uric acidno gut pains etcnote MUSHROOMS ARE THE PROBABLE CULPRIT HIGH IN PURINES Pain of le ft hip joint 0809735554 53629 M25.552 seems otbe bettter now and no major issuealso has a shoulder pain but has been doing impingemen t exercises Drug dependence 90490664 9 F19.20 doing great Harmful pa ttern of use of cocaine 87581214 F14.10 asymptomat ic is clean Screening for malignant neoplasm of colon 676678773 Z12.11 [id number] Bandar Moore [facility] [address],[place] [address] 12/08/2021 14:08:46 12/08/2021 16:39:50 Fracture of tibial plateau 309400520 S82.111D has fu with ortho on 12/15/21 Compartmen t syndrome of lower limb due to traumatic injury 591348156 T79.A21A the patient is using a walker and crutches Dysuria 25592873 R30.0 will send to [facility] for check Rib pain 783571034 R07.8 1 will monitor [id number] Bandar Moore [facility] [address],[place] [address] 05/20/2022 08:47:55 05/24/2022 09:52:04 Urinary urgency due to benign prostatic hypertrophy 5076197446 75437 R39.15 Gouty arthropathy 675069 008 M10.09 [id number] Bandar Moore [facility] [address],[place] [address] 08/24/2022 16:00:38 08/24/2022 16:42:18 Anxiety 67793759 F41.9 [id number] Bandar Moore [facility] [address],[place] [address] 10/07/2022 16:14:14 10/10/2022 08:29:21 Anxiety 40873267 F41.9 feel excellent we will continue to have him stay on the duloxetine at 30mg and call if he needs to increase Drug dependence 01253674 9 F19.20 doing great he is sober over 2 years!!! Compartmen t syndrome of lower limb due to traumatic injury 283532491 T79.A21A doing great no issues now Screening for malignant neoplasm of colon 324759204 Z12.11 next visit Harmful pa ttern of use of cocaine 70476687 F14.10 asymptomat ic is clean Dermatophytosis 71365508 B35.9 Plantar fa sciitis of right foot 3480604833 2365496 M72.2 WILL GO TO [facility] TO GET INSERT [id number] Bandar Moore [facility] [address], [place] [address] 03/20/2023 11:06:46 03/20/2023 11:57:31 Abscess of skin and/or subcutaneous tissue 99834041 L02.212 will fu in a week to recheck the area [id number] Bandar Moore [facility] [address],[place] [address] 03/29/2023 14:42:47 03/31/2023 08:09:23 Abscess of skin and/or subcutaneous tissue 59751047 L02.212 reducingdo ing okay will recheck if needed Atopic dermatitis 190608 01 L20.89 will try a topical for patientOTC lotions [id number] Bandar Moore [facility] [address],[place] [address] 04/19/2024 11:30:32 04/19/2024 14:29:31 Depression screening 173343081 Z13.31 Active or passive immunization 568153375 Z23 Adult heal th examination 195632037 Z00.01 doing very well and overall does have tinea versicolor Pityriasis versicolor 56 683470 B36.0 Urinary ur gency due to benign prostatic hypertrophy 5182940681 11536 R39.15 [id number] Bandar Moore [facility] [address], [place] [address] 08/21/2024 10:35:29 09/02/2024 12:00:13 Increased blood pressure 58577261 R03.0 he will lose weight and we will then go ahead and rechk at home and has been doing well . Dermatophytosis 77670256 B35.9 resolved Depressive disorder 1978 9007 F32.A struggling noted in past currently stable despite ankle injury [id number] Bandar Moore [facility] [address],[place] [address] 12/02/2024 11:25:17 12/02/2024 14:18:22 Syncope and collapse 262254507 R55 will set up with the imaging and additional lab work Seizure 24827263 G40.89 will set up with EEG and lab work Impaired f asting glycemia 952238013 R73.01 recheck levels Migraine 99005410 G43.90 9 ?possible migraine presentati on vs seizure vs TIA Confusional state 846066 003 F44.89 will set up with lab work [id number] Bandar Moore [facility] [address],[place] [address] 12/20/2024 16:00:05 12/20/2024 16:41:07 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 related Confusional state 851885 003 F44.89 will set up with lab work Health Concerns Section Related Observation LastModified by Organization Detai ls LastModified Time None Recorded Concern Status LastModified by Organization Details LastModified Time None Recorded Advance Directives Directive None Recorded Payers Insurance Date Sequence Insurance Name Policy Number Policy Elmore Covered Member ID Elmore Member ID Guarantor Name 04/19/2024 1 [place] PRIOR TO 2022 - [facility] (MEDICAID) Leonard Mccartney [id number] Leonard Mccartney 08/20/2024 1 [place] [facility] Leonard Mccartney [id number] Leonard Chaparroeau 04/19/2024 1 [facility] [facility] [id number] Leonard Mccartney [id number] Leonard Cahparroeau 12/19/[address] [place] [address] ([facility]) [id number] Leonard Keenanu [id number] Leonard Chaparroeau 04/19/2024 1 [facility] ([facility]) [id number] Leonard Mccartney [id number] Leonard Mccartney Notes Date Note Type Note Provider Name a nd Address Organization Details Recorded Time 3 text/html 10 day F/U abscess: reducing well on its ownwill monitor for nowwill call if he needs to be followed up with it atopic dermatitis: given topical to try to see if it helps with the rash and itching SHARITA SOLARES [address] [place] [address], [phone], [facility] 03/29/2023 15:09:59 4 [...] hearing Vision:no vision problems Bandar Moore DO [address] [place] [address], [phone], [facility] 04/19/2024 12:34:58 4 text/html patient is evaluated via tele/video assessment per patient consentduring current pandemicrelates slipped and fell and broke his anklealso underwent a kidney stone removal having urinary frequency Bandar Moore DO [address] [place] [address], [phone], [facility] 08/27/2024 22:00:14 5 text/html c/o pt passed out the patient passed out on a bench, noted that his witnessed itthe patient reports he was unresponsive on a bench, passed out, castillo juliocesar patient notes he was drooling, was having [...] scan and lab work SHARITA SOLARES [address] [place], [phone], [facility] 12/02/2024 12:10:41 5 text/html f/u [...] the patient is doing well SHARITA SOLARES [address] [place], [phone], [facility] 12/20/2024 18:56:45
== END 2025-03-05 13:52 | disposition home or self-care (01) ==
LOC: HO.XRAY 13:51
PROVIDERS: PCP Internal Medicine; Visit Provider Physician Assistant
DX: M25.562 Pain in left knee (principal)
CPT/HCPCS: 73562

== ENCOUNTER → 2025-03-05 14:17 | Outpatient (BNV) | payer OTHER, SELFPAY | PROVIDERS: PCP Internal Medicine; Visit Provider Radiology Vascular & Interventional Radiology | DX: M17.12 Unilateral primary osteoarthritis, left knee (principal) | CPT/HCPCS: 73562 ==

== ENCOUNTER 2025-04-25 16:26 | Outpatient (REF) | payer OTHER, SELFPAY ==
--- NOTE | ~2025-04-25 | US_ITS ---
EXAMINATION: US KIDNEY BILATERAL HISTORY: N20.0 - Calculus of kidney TECHNIQUE: Real-time grayscale ultrasound imaging of the kidneys was performed and images were reviewed. COMPARISON: Comparison is made with the prior examination dated 10/30/2024. FINDINGS: Right kidney: The right kidney measures 13.4 x 5.6 x 5.7 cm. Renal parenchymal echotexture and thickness are normal. There are no masses. There is a 4 x 2 x 2 mm nonobstructing calculus in the interpolar region. There is no hydronephrosis. Left Kidney: The left kidney measures 12.7 x 4.8 x 4.5 cm. Renal parenchymal echotexture and thickness are normal. There are no masses. There is no hydronephrosis or renal calculi. US/US renal BI IMPRESSION: 4 mm right renal calculus. Otherwise unremarkable renal ultrasound. Electronically signed by: Hector Posey MD 04/28/2025 07:07 AM EDT
== END 2025-04-25 16:27 | disposition home or self-care (01) ==
LOC: HO.US 16:26
PROVIDERS: PCP Internal Medicine; Visit Provider Urology
DX: N20.0 Calculus of kidney (principal)
CPT/HCPCS: 76775

== ENCOUNTER → 2025-04-25 16:29 | Outpatient (BNV) | payer OTHER, SELFPAY | PROVIDERS: PCP Internal Medicine; Visit Provider Radiology Diagnostic Radiology | DX: N20.0 Calculus of kidney (principal) | CPT/HCPCS: 76775 ==

== ENCOUNTER 2025-05-06 14:46 | Outpatient (AMB) | payer OTHER, SELFPAY ==
--- NOTE | 2025-05-06 14:49 | A.OFFVIS_ITS ---
Intake Visit Reasons: 6m follow up/US Intake Note: Patient presents today for follow up on: hydronephrosis and ultrasound results Imaging Completed: 04/25/2025 Urology Med: Tamsulosin Antibiotic Allergy: None Blood Thinner: None Hot Blaster Required: No Accompanied by: Self / Same As Patient Allergies No Known Allergies (No Known Allergies*) Allergy (Verified 05/06/25 15:07) HPI Comments Details: Leonard is a pleasant male. He is a patient of Dr. Moore. He is seen for the following urologic conditions - nephrolithiasis - borderline PSA Six-month follow-up Lemon water therapy Vitamin B6 Surveillance interval imaging Nephrolithiasis Recurrent stone former 08/11 Present through emergency department with severe right-sided pelvic pain radiating to right flank WBC 10.6, calcium 9.4, creatinine 0.9 Imaging - 7 mm calculus in the distal right ureter resulting in mild hydroureteronephrosis and mild periureteral stranding - 11/12 renal ultrasound nonspecific 3 mm bilateral calcification - 05/12 renal ultrasound 4 mm right Intervention - 08/11 right ureteroscopy with laser lithotripsy Stone composition - Calcium Oxalate Dihydrate (Weddellite) 30%Calcium Oxalate Monohydrate (Whewellite) 70% PFSH Medical History (Updated 11/05/24 @ 15:45 by Titus Rajan MD) Kidney stones GERD (gastroesophageal reflux disease) Liver nodule Ptosis Thyroid nodule Lung nodule Surgical History History of cholecystectomy Social History Household Members: Significant Other and None Housing: Apartment Patient Tobacco Use Status: Never used Tobacco Substance Use Type: Marijuana service: No Review of Systems Const Denies chills and Denies fever(s) Card Reports no additional complaints and Denies syncope Resp Denies cough GI Denies abdominal pain and Denies heartburn Reports as per HPI and Denies change in libido Neuro Denies syncope Psych Denies change in libido Endo Denies change in libido Physical Exam Const General: cooperative, healthy appearing, comfortable and no acute distress Orientation/consciousness: patient oriented x3 HEENT Face and sinus: Yes normal facial exam Mouth: moist mucous membranes Neck Neck: Yes normal visual inspection, Yes full ROM and Yes trachea midline Chest Chest palpation & inspection: normal inspection of the chest Resp Effort & Inspection: normal respiratory effort, able to speak in complete sentences and no respiratory distress GI Inspection: Yes normal to inspection Back/Spine/Pelvis Cervical Spine: normal cervical lordosis Thoracic/Lumbar Spine: thoracic and lumbar spine normal to inspection Skin General skin exam: no rashes or lesions noted Neuro General: patient oriented x3, gait normal, tone normal and moves all extremities Extrem General: Yes normal to inspection and Yes capillary refill normal Assessment & Plan Assessment & Plan (1) Kidney stones: Code(s): N20.0 - Calculus of kidney Category: Medical Plan Interval imaging Orders: Orders US renal BI 6 Months N20.0 - Calculus of kidney Medications: Discontinued cefuroxime axetil Discontinued Reason: Patient no longer taking 500 mg PO Q12H 10 tabs 0RF Patient Instructions: This note is constructed using voice recognition software. While every effort has been made to ensure accuracy padded products inspector trimmer errors may have been included. Imaging studies, laboratory and physical exam results were discussed and reviewed in detail. No major barriers to patient understanding were identified. An opportunity to ask questions regarding the treatment plan was provided. All questions were answered. The patient expressed understanding and agreement with the above treatment plan. The patient is aware they should contact our office by phone for worsening of their current condition or the appearance of new urologic symptoms. Compliance is encouraged with any medications and followup testing that is ordered. It is a privilege to participate in the urologic care of your patient. If you have any questions or concerns regarding treatment for the above conditions, or other urologic issues, please do not hesitate to contact me. The office telephone contact is [phone]. Sincerely, Dr Titus Rajan MD, [facility] - Urology Compassionate Specialist Care for the Genitourinary System Coding Level of Care Code Est Pt Level 3 (13746) Diagnoses Kidney stones N20.0
--- OUTSIDE RECORDS SUMMARY | 2025-05-06 16:09 | XMS_ITS | Clinical Summary ---
Author Organization [facility] Address [address] [place] [id number] Phone Care Team Providers Care Angle Furnaceman Name Role Phone Frederic Davis DO Unavailable Frederic Davis DO Primary Care Provider [phone] Allergies No known active allergies Medications bacillus coagulans-inulin 1 billion-250 cell-mg Cap Take 250 mg by mouth daily. Active multivitamin-min erals-lutein (CENTRUM SILVER) Tab Take 1 tablet by mouth daily. Active tamsulosin (FLOMAX) 0.4 mg Cap Take by mouth daily. 05/20/2022 Active omeprazole (PRILOSEC) 20 MG capsule daily. Active naproxen (NAPROSYN) 500 MG tablet Take 1 tablet (500 mg total) by mouth 2 (two) times a day with meals for 7 days. 14 tablet 09/26/2024 Active cyclobenzaprine (FLEXERIL) 5 MG tablet Take 1 tablet (5 mg total) by mouth 3 (three) times a day as needed (back spasming). 10 tablet 09/26/2024 Active Active Problems No known active problems Social History Tobacco Use Types Packs/Day Years Used Date Smoking Tobacco: Never Smokeless Tobacco: Never Alcohol Use Standard Drinks/Week Comments Never 0 (1 standard drink = 0.6 oz pur e alcohol) Education Answer Date Recorded Are you interested in more education? Not on noni e 01/13/2023 Are you concerned about learning? Not on file 01/13/2023 No 01/13/2023 No 01/13/2023 Digital Access Answer Date Recorded No 02/11/2023 No 02/11/2023 Reliable internet access at home? Not on file 02/11/2023 Device with a working camera? Not on file Intimate Partner Violence Answer Date R ecorded Are you denied basic needs s uch as food, clothing, or medical care? No 11/30/2024 In the past 12 months have y ou been in a relationship with a person who hurts, threatens, or tries to control you? No 11/30/2024 Are you denied basic needs s uch as food, clothing, or medical care? No 11/30/2024 In the past 12 months have y ou been in a relationship with a person who hurts, threatens, or tries to control you? No 11/30/2024 Sex and Gender Information Value Date Recorded Sex Assigned at Male 08/09/2022 8:27 AM EST Legal Sex Male 9:36 PM EDT Gender Identity Male 08/09/2022 8:27 AM EST Sexual Orientation Straight 11/30/2024 7: 04 PM EDT Last Filed Vital Signs Vital Sign Reading Time Taken Comments Blood Pressure 129/79 11/30/2024 11:33 PM EDT Pulse 73 11/30/2024 11:33 PM EDT Temperature 36.8 C (98.2 F) 11/30/2024 11:35 PM EDT Respiratory Rate 18 11/30/2024 11:30 PM EDT Oxygen Saturation 100% 11/30/2024 11:33 PM EDT Inhaled Oxygen Concentration - - Weight 117.9 kg (260 lb) 11/30/2024 7:05 PM EDT Height 182.9 cm (6') 11/30/2024 7:05 PM EDT Body Mass Index 35.26 11/30/2024 7:05 PM EDT Plan of Treatment Health Maintenance Due Date Last Done Comments DEPRESSION SCREENING 1981 HIV ONE-TIME SCREENING (18-6 5 YEARS) 1987 COLOGUARD 2014 FIT TEST 2014 FOBT 2014 SIGMOIDOSCOPY 2014 VIRTUAL COLONOSCOPY 2014 PNEUMOCOCCAL VACCINES (50+ years) (1 of 1 - PCV) 2019 ZOSTER VACCINES (1 of 2) 2019 SCREENING FOR DIABETES 07/23/2022 07/23/2019 COVID-19 VACCINE (4 - 2023-2 5 season) 2024 09/04/2021, 01/27/2021, 01/06/2021 Adult Td,Tdap Booster 06/11/2024 06/11/2014 LIPID PANEL 07/23/2024 07/23/2019 COLONOSCOPY 05/27/2032 05/27/2022 COLORECTAL CANCER SCREENING 05/27/2032 HEPATITIS C SCREENING Completed 06/18/2019 SMOKING STATUS SCREENING (On ce After 26 Yrs) Completed 11/30/2024 HEPATITIS A VACCINES Aged Out No long er eligible based on patient's age to complete this topic HIB VACCINES Aged Out No longer eligi ble based on patient's age to complete this topic MENINGOCOCCAL VACCINES (ACWY) Aged Out No longer eligible based on patient's age to complete this topic MENINGOCOCCAL VACCINES (B) Aged Out N o longer eligible based on patient's age to complete this topic Medical Devices Implanted Type Area [employer] Instructor Device Identifier Shelf Expiration Date Model / Serial / Lot Plate And Screws Right: Leg Procedures Procedure Name Priority Date/Time Associated Diagnosis Comments ENDOSCOPY, COLON 05/27/2022 8:23 AM EDT from Last 3 Months or Most Recently Relevant to Health Maintenance Results * ENDOSCOPY, COLON (05/27/2022 8:23 AM EDT) Narrative Transcriptions Collin Staples MD - 05/27/2022 8:23 AM EDT Patient Name: Leonard Mccartney Attending MD:: COLLIN STAPLES MD Procedure Date: 05/27/2022 8:23 AM Date of : 1970 Age: 51 Admit Type: Outpatient Gender: Male Room: [place] [address] Referring MD: FREDERIC DAVIS DO Exam Type: Colonoscopy Indications: Screening for colorectal malignant neoplasm, Thisis the patient's first colonoscopy Medications: Monitored Anesthesia Care Procedure: Informed consent was obtained from the patientafter discussion of the indications, limitations, alternatives, benefits, and risks of the procedure. Risks specifically discussed include but are not limited to medication reactions, missed lesions, bleeding, perforation, or the need for emergent surgery. Throughout the procedure, the patient's blood pressure, pulse, end-tidal CO2, and oxygensaturations were monitored continuously. The Colonoscope was introduced through the anus and advanced to the terminal ileum. The colonoscopy was performed without difficulty. The patient tolerated the procedure well. The quality of the bowel preparation was good. The ileocecal valve,appendiceal orifice, and rectum were photographed. Complications: No immediate complications. Estimated blood loss:None. Findings: The perianal and digital rectal examinations were normal. Multiple small-mouthed diverticula were found inthe sigmoid colon. The rectum, recto-sigmoid colon, sigmoid colon, descending colon, splenic flexure, transversecolon, hepatic flexure, ascending colon, cecum,appendiceal orifice, ileocecal valve, ileum, rectum (on retroflexion) and ascending colon (on retroflexion) appeared normal. Impression: - Diverticulosis in the sigmoid colon. - The rectum, sigmoid colon, descending colon,splenic flexure, transverse colon, hepatic flexure,ascending colon, cecum, rectum (on retroflexion), ascending colon (on retroflexion), ileocecal valve, recto-sigmoid colon, terminal ileum and appendiceal orifice are normal. - No specimens collected. Recommendation: - Discharge patient to home. - High fiber diet. - Continue present medications. - Repeat colonoscopy in 10 years for screening purposes. - You have diverticulosis so please eat a highfiber diet. COLLIN STAPLES MD 05/27/2022 8:48:13 AM This report has been signed electronically. Number of Addenda: 0 Note Initiated On: 05/27/2022 8:23 AM Procedure Code(s): --- Professional --- 29188, Colonoscopy, flexible; diagnostic, including collection of specimen(s) by brushing or washing, when performed (separateprocedure) --- Technical --- 19764, Colonoscopy, flexible; diagnostic, including collection of specimen(s) by brushing or washing, when performed (separateprocedure) Diagnosis Code(s): --- Professional --- Z12.11, Encounter for screening for malignantneoplasm of colon K57.30, Diverticulosis of large intestine without perforation or abscess without bleeding --- Technical --- Z12.11, Encounter for screening for malignantneoplasm of colon K57.30, Diverticulosis of large intestine without perforation or abscess without bleeding CPT copyright 2020 [employer]. All rights reserved. The codes documented in this report are preliminary and upon superintendent pipelines reviewmay be revised to meet current compliance requirements. Procedure Date: 05/27/2022 8:23:[address] [place] [address] us Frederic Davis DO GI PROCEDURE ORDERABLES Final Re sult from Last 3 Months or Most Recently Relevant to Health Maintenance [facility] Care Teams Angle Furnaceman Relationship Specialty Start Date End Date Frederic Davis DO [address] [place] [id number] PCP - General Internal Medicine 10/06/20 Frederic Davis DO [email or web address] Historical LMR Provider 07/03/17 Additional Source Comments The information contained in this document represents components of the legal health record. It is not the complete legal health record.[facility]
== END 2025-05-06 15:44 | disposition home or self-care (01) ==
LOC: HO.HUSH 14:47
PROVIDERS: PCP Internal Medicine; Visit Provider Urology
DX: N20.0 Calculus of kidney (principal)
CPT/HCPCS: 99213